=== PATIENT | male | born 1955 | race Caucasian/White ===

== ENCOUNTER 2018-11-23 19:40 | Inpatient (IN) | payer OTHER ==
[~2018-11-23] VITALS: Ht 170.2 cm; Wt 97.1 kg
--- NOTE | 2018-11-23 20:00 | NUR ---
ED Nurse Note: Patient walked in to Er with his daughter, c/o abdominal pain 05/06. 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 AAO x4, VSS at this time, skin is dry, warm to touch.
--- NOTE | 2018-11-23 20:24 | Emergency Room Report ---
History of Present Illness General Chief Complaint: Abdominal Pain Source: Patient Present Illness HPI Patient presents with complaints of diffuse abdominal pain Patient's family is here provides most of the history reports the patient has recently been diagnosed with myofibroblastoma This was at [facility] patient has been seen at the [facility] clinic as well Family is worried the patient's blood glucose has been also elevated Patient is not eating or drinking Has appeared more dehydrated Patient also continues to complain of diffuse abdominal pain They report patient has had a recent PET scan along with other CT imaging Allergies: Coded Allergies: No Known Allergies (Unverified , 11/23/18) Patient History Past Medical History: see triage record Pertinent Family History: none Reviewed Nursing Documentation: PMH: Agreed; PSxH: Agreed Nursing Documentation-PMH Past Medical History: No History, Except For Hx Diabetes: Yes Review of Systems All Other Systems: negative except mentioned in HPI Physical Exam Vital Signs Date Time Temp Pulse Resp B/P (MAP) Pulse Ox O2 Delivery O2 Flow Rate FiO2 11/23/18 19:45 98.2 75 12 152/87 94 Room Air Sp02 EP Interpretation: reviewed, normal General Appearance: well appearing, no apparent distress Head: normocephalic, atraumatic Eyes: bilateral eye PERRL, bilateral eye EOMI ENT: hearing grossly normal, TMs + canals normal, uvula midline, dry mucus membranes Neck: full range of motion, supple, no meningismus, no bony tend Respiratory: lungs clear, normal breath sounds, no rhonchi, no respiratory distress, no retraction, no accessory muscle use Cardiovascular #1: normal peripheral pulses, regular rate, rhythm, no edema, no gallop, no JVD, no murmur Gastrointestinal: normal bowel sounds, non tender, soft, no mass, no organomegaly, non-distended, no guarding, no hernia, no pulsatile mass, no rebound Genitourinary: no CVA tenderness Musculoskeletal: normal inspection Neurologic: oriented x3, responsive, hand turner III-XII nml as tested, motor strength/ tone normal, sensory intact Psychiatric: mood/affect normal Skin: normal color, no rash, warm/dry, palpation normal Lymphatic: normal inspection, no adenopathy Medical Decision Making Diagnostic Impression: Primary Impression: Renal failure Additional Impressions: Hyperkalemia myofibroblastoma urinary stent ER Course Given the patient's history exam and presentation Multiple differentials are considered Patient has had recent PET scan, recent hospitalization The patient's family member also no reports of patient has stents in bilateral kidneys [place] Blood work at this time is significantly abnormal including elevated potassium levels glucose and kidney functions are significantly elevated Family showed me a blood test from 5 days ago with BUN/creatinine of 38 and 1.6 respectively Today's numbers are significantly more abnormal therefore more emergency CT imaging is required further evaluate the stents Patient is making urine therefore further hydration was also initiated patient requiring inpatient care for further evaluation Labs Test 11/23/18 20:25 White Blood Count 7.6 K/UL (4.8-10.8) Red Blood Count 3.51 M/UL (4.70-6.10) Hemoglobin 9.5 G/DL (14.2-18.0) Hematocrit 29.3 % (42.0-52.0) Mean Corpuscular Volume 84 FL (80-99) Mean Corpuscular Hemoglobin 27.2 PG (27.0-31.0) Mean Corpuscular Hemoglobin Concent 32.5 G/DL (32.0-36.0) Red Cell Distribution Width 12.3 % (11.6-14.8) Platelet Count 192 K/UL (150-450) Mean Platelet Volume 5.9 FL (6.5-10.1) Neutrophils (%) (Auto) 71.1 % (45.0-75.0) Lymphocytes (%) (Auto) 14.4 % (20.0-45.0) Monocytes (%) (Auto) 8.2 % (1.0-10.0) Eosinophils (%) (Auto) 5.6 % (0.0-3.0) Basophils (%) (Auto) 0.7 % (0.0-2.0) Sodium Level 129 MMOL/L (136-145) Potassium Level 5.6 MMOL/L (3.5-5.1) Chloride Level 99 MMOL/L (98-107) Carbon Dioxide Level 21 MMOL/L (21-32) Anion Gap 9 mmol/L (5-15) Blood Urea Nitrogen 76 mg/dL (7-18) Creatinine 5.3 MG/DL (0.55-1.30) Estimat Glomerular Filtration Rate 10.9 mL/min (>60) Glucose Level 434 MG/DL (74-106) Calcium Level 8.9 MG/DL (8.5-10.1) Total Bilirubin 0.4 MG/DL (0.2-1.0) Aspartate Amino Transf (AST/SGOT) 19 U/L (15-37) Alanine Aminotransferase (ALT/SGPT) 41 U/L (12-78) Alkaline Phosphatase 115 U/L (46-116) Total Protein 7.6 G/DL (6.4-8.2) Albumin 2.7 G/DL (3.4-5.0) Globulin 4.9 g/dL Albumin/Globulin Ratio 0.6 (1.0-2.7) Lipase 164 U/L (73-393) Rhythm Strip Diag. Results EP Interpretation: yes Rate: 88 Rhythm: NSR, no PVC's, no ectopy CT/MRI/US Diagnostic Results CT/MRI/US Diagnostic Results : Impression CT abdomen pelvisIMPRESSION: Mantle of retroperitoneal soft tissue in the pericaval periaortic region extending into bilateral iliac regions. Findings suspicious for retroperitoneal fibrosis. Differential includes adenopathy. Moderate bilateral hydroureteronephrosis. Double-J ureteral stents appear in good position. Moderate thickening of the urinary bladder wall may be due to cystitis. Correlate clinically. Anasarca. Basal atelectasis. Last Vital Signs Date Time Temp Pulse Resp B/P (MAP) Pulse Ox O2 Delivery O2 Flow Rate FiO2 11/23/18 19:45 98.2 75 12 152/87 94 Room Air Status: improved Disposition: ADMITTED INPATIENT Condition: Serious Rodger Del Angel DO Nov 23, 2018 20:23
[2018-11-23 20:35] LABS: BASOPHILS % (AUTO) 0.7 % (0.0-2.0); EOSINOPHILS % (AUTO) 5.6 % (0.0-3.0); HEMATOCRIT 29.3 % (42.0-52.0); HEMOGLOBIN 9.5 G/DL (14.2-18.0); LYMPHOCYTES % (AUTO) 14.4 % (20.0-45.0); MEAN CORPUSCULAR VOLUME 84 FL (80-99); MONOCYTES % (AUTO) 8.2 % (1.0-10.0); NEUTROPHILS % (AUTO) 71.1 % (45.0-75.0); PLATELET COUNT 192 K/UL (150-450); RED BLOOD COUNT 3.51 M/UL (4.70-6.10); RED CELL DISTRIBUTION WIDTH 12.3 % (11.6-14.8); WHITE BLOOD COUNT 7.6 K/UL (4.8-10.8)
[2018-11-23 20:48] LABS: ANION GAP 9 mmol/L (5-15); BLOOD UREA NITROGEN 76 mg/dL (7-18); CALCIUM 8.9 MG/DL (8.5-10.1); CARBON DIOXIDE 21 MMOL/L (21-32); CHLORIDE 99 MMOL/L (98-107); CREATININE 5.3 MG/DL (0.55-1.30); POTASSIUM 5.6 MMOL/L (3.5-5.1); SODIUM 129 MMOL/L (136-145)
[2018-11-23 20:52] LABS: ALANINE AMINOTRANSFERASE 41 U/L (12-78); ALBUMIN 2.7 G/DL (3.4-5.0); ALBUMIN/GLOBULIN RATIO 0.6 (1.0-2.7); ALKALINE PHOSPHATASE 115 U/L (46-116); ASPARTATE AMINO TRANSFERASE 19 U/L (15-37); BILIRUBIN,TOTAL 0.4 MG/DL (0.2-1.0)
[2018-11-23] MEDS ORDERED: MIRALAX17 G2 ORAL (21:07)
[2018-11-23] MEDS ORDERED: LANTUS SOL100 UNIT/1 SUBQ (21:07)
[2018-11-23] MEDS ORDERED: LIPITOR20 MG ORAL (21:07)
[2018-11-23] MEDS ORDERED: SENNA176 MG/5 M PO (21:07)
[2018-11-23] MEDS ORDERED: GABAPENTIN100 MG ORAL (21:07)
[2018-11-23] MEDS ORDERED: ROXICODONE15 MG ORAL (21:07)
[2018-11-23] MEDS ORDERED: COLACE100 MG ORAL (21:07)
[2018-11-23] MEDS ORDERED: LISPRO (21:07)
[2018-11-23] MEDS ORDERED: ACETAMINOP160 MG/54 ORAL (21:07)
[2018-11-23] MEDS ORDERED: Insulin Human Regular 100units/ml 3ml IV ONE (21:15)
[2018-11-23] MEDS ORDERED: Sodium Polystyrene Sulfonate 15gm Powder ORAL ONE (21:15)
--- NOTE | 2018-11-23 21:15 | NUR ---
ED Nurse Note: Patient is in the bed medicated, states feels better.
[2018-11-23 21:38] LABS: APPEARANCE,URINE CLEAR; BILIRUBIN, URINE NEGATIVE (NEGATIVE); COLOR,URINE PALE YELLOW; GLUCOSE, URINE (UA) 3+ (NEGATIVE); KETONES,URINE NEGATIVE (NEGATIVE); LEUKOCYTE ESTERASE ,URINE 2+ (NEGATIVE); NITRITE,URINE NEGATIVE (NEGATIVE); PH,URINE 5 (4.5-8.0); PROTEIN,URINE NEGATIVE (NEGATIVE); UROBILINOGEN,URINE NORMAL MG/DL (0.0-1.0)
[2018-11-23 22:06] VITALS: BP 152/87
[2018-11-23] MEDS ORDERED: Morphine Sulfate 4mg/ml Inj (IV USE ONLY) IVP ONE (22:15)
[2018-11-23] MEDS ORDERED: Mylanta II UD 30ml ORAL PRN (22:30)
[2018-11-23] MEDS ORDERED: Miralax 17gm pkt ORAL PRN (22:30)
[2018-11-23] MEDS ORDERED: Ketorolac 30mg Inj IV PRN (22:30)
[2018-11-23] MEDS ORDERED: oxyCODONE 15mg IR tab ORAL PRN (22:30)
[2018-11-23] MEDS ORDERED: Nitroglycerin Subl 0.4mg tab SL PRN (22:30)
[2018-11-23] MEDS ORDERED: oxyCODONE 5mg IR tab ORAL PRN (22:45)
--- NOTE | 2018-11-23 23:12 | NUR ---
ED Nurse Note: Patient was admited to [facility] due to abnormal labs, uncontrolled hyperglycemia, dehydration. AAO x4, VSS at this time. All belongings were given to the patient. Patient was transfered by ACLS protocol.
--- NOTE | 2018-11-23 23:40 | NUR ---
NURSE NOTES: Patient arrived, aaox4. Citizen [place] speaking, daughter at bedside. Pain lower abdomen 05/06. Morphine IVP given, IV site patent. Oriented to room. Ambulatory with steady gait. Plan of care discussed. Bed low, call light within reach. Bed low, call light within reach. Addendum: 11/24/18 at 0156 by ELIAZAR BENEDICT RN Blood sugar upon arrival 380. Patient refused sliding scale coverage. Patient also was requesting order for long acting insulin. Dr. Caballero was called. Awaiting call back.
[2018-11-23] MEDS: Morphine Sulfate 4mg/ml Inj (IV USE ONLY) IVP PRN (23:42)
[2018-11-23 23:58] LABS: CREATINE KINASE 19 U/L (26-308)
[2018-11-24] MEDS: NovoLOG Insulin Flexpen SUBQ SCH ×6 (00:40→20:40)
[2018-11-24 04:00] VITALS: BP 145/78
[2018-11-24] MEDS: Morphine Sulfate 4mg/ml Inj (IV USE ONLY) IVP PRN (05:22)
[2018-11-24] MEDS ORDERED: NovoLOG Insulin Flexpen SUBQ SCH ×2 (06:30→11:30)
--- NOTE | 2018-11-24 06:39 | NUR ---
NURSE NOTES: Dr. Caballero made aware patient's critical value blood sugar of 482. Sliding scale given. Endorsed to SADA Ybarra.
[2018-11-24 08:00] VITALS: BP 131/73
--- NOTE | 2018-11-24 08:05 | NUR ---
HAND-OFF: Report given to SADA Ybarra. Patient stable.
[2018-11-24 08:08] LABS: HEMATOCRIT 33.6 % (42.0-52.0); HEMOGLOBIN 10.6 G/DL (14.2-18.0); MEAN CORPUSCULAR VOLUME 86 FL (80-99); PLATELET COUNT 207 K/UL (150-450); RED BLOOD COUNT 3.89 M/UL (4.70-6.10); RED CELL DISTRIBUTION WIDTH 13.2 % (11.6-14.8); WHITE BLOOD COUNT 9.8 K/UL (4.8-10.8)
[2018-11-24 08:10] LABS: INR 1.1 (0.9-1.1)
--- NOTE | 2018-11-24 08:20 | NUR ---
NURSE NOTES: during shift change patient alert awake with out no distress abdominal US in progress, will continue to monitor.
[2018-11-24 08:44] LABS: % IRON SATURATION 19 % (15-50); ALANINE AMINOTRANSFERASE 40 U/L (12-78); ALBUMIN 2.6 G/DL (3.4-5.0); ALBUMIN/GLOBULIN RATIO 0.5 (1.0-2.7); ALKALINE PHOSPHATASE 115 U/L (46-116); AMYLASE 27 U/L (25-115); ANION GAP 18 mmol/L (5-15); ASPARTATE AMINO TRANSFERASE 16 U/L (15-37); BILIRUBIN,TOTAL 0.5 MG/DL (0.2-1.0); BLOOD UREA NITROGEN 77 mg/dL (7-18); CALCIUM 8.7 MG/DL (8.5-10.1); CARBON DIOXIDE 14 MMOL/L (21-32); CHLORIDE 98 MMOL/L (98-107); CREATININE 5.4 MG/DL (0.55-1.30); IRON 28 ug/dL (50-175); SODIUM 129 MMOL/L (136-145); TOTAL IRON BINDING CAPACITY 148 ug/dL (250-450)
[2018-11-24 08:46] LABS: LACTATE DEHYDROGENASE 141 U/L (81-234)
--- NOTE | 2018-11-24 08:50 | NUR ---
NURSE NOTES: Received a call from sarah Selby for critical lab value Potassium 7.0. Dr Tracy notified waiting a call back, patient with out no condition change currently, VS WNL. will continue to monitor.
--- NOTE | 2018-11-24 08:52 | Diagnostic Imaging Report ---
Indication: Abdominal pain Technique: Continuous helical transaxial imaging of the abdomen and pelvis was obtained from the lung bases to the pubic symphysis. No intravenous contrast was administered. Coronal 2-D reformats were also obtained. Automatic Exposure Control was utilized. Total Dose length Product (DLP): 743.[address] Dose Index Volume (CTDIvol): 13.01 mGy Comparison: none Findings: The patient has bilateral double-J ureteral stents which appear to be in good position. Despite this the ureters are moderately dilated. The bladder is nondistended. There is a relative absence of intra-abdominal fat. There is thickening of the wall the urinary bladder. There is no evidence of significant free fluid or abscess. The retroperitoneum is appears abnormal. There is a confluent soft tissue density surrounding the aorta and IVC within the retroperitoneum extending into both iliac regions. This mantle of tissue could be due to retroperitoneal fibrosis. Other possibilities such as adenopathy is not excluded.. There is generalized subcutaneous edema within the abdominal wall. There is a right L5-S1 pseudarthrosis. There is minimal basilar atelectasis. IMPRESSION: Mantle of retroperitoneal soft tissue in the pericaval periaortic region extending into bilateral iliac regions. Findings suspicious for retroperitoneal fibrosis. Differential includes adenopathy. Moderate bilateral hydroureteronephrosis. Double-J ureteral stents appear in good position. Moderate thickening of the urinary bladder wall may be due to cystitis. Correlate clinically. Anasarca. Basal atelectasis. The CT scanner at [facility] is accredited by the [employer] and the scans are performed using dose optimization techniques as appropriate to a performed exam including Automatic Exposure control.
[2018-11-24] MEDS ORDERED: Heparin 5000 units/ml inj SUBQ SCH (09:00)
--- NOTE | 2018-11-24 09:20 | NUR ---
NURSE NOTES: Dr. Garcia returned call regarding critical lab value order received, for 10unit regular insulin IVP, Pharmacist Sonu notified of new order. Dr. Garcia came to see the patient bed available will transfer patient.
[2018-11-24] MEDS ORDERED: Insulin Human Regular 100units/ml 3ml IV ONE (09:30)
[2018-11-24 09:50] VITALS: BP 155/74
--- NOTE | 2018-11-24 09:53 | NUR ---
HAND-OFF: Report given to Patient transferred to [facility] stable condition, stat order 10unit regular insulin IV given. belonging checked with receiving RN, daughter and patient and signed.
--- NOTE | 2018-11-24 09:53 | Diagnostic Imaging Report ---
Indication:Abdominal pain Technique: Grayscale and duplex Doppler imaging of the abdomen performed. Comparison: None Findings: Liver is unremarkable. There is trace ascites. Gallbladder shows no evidence of stones and sonographic Willett's is negative per technologist. CBD is normal in caliber measuring 6 mm. The portal vein is patent by Doppler examination. Visualized pancreas is unremarkable. The spleen is mildly enlarged measuring between 13 and 14 cm. Bilateral hydroureteronephrosis demonstrated moderate in degree despite bilateral ureteral stents, partially visualized on this study. CT confirms the stents and shows good positioning of the stents. The abdominal aorta shows normal caliber. There is a mantle of tissue surrounding the aorta and part of the IVC in the retroperitoneum. The aorta is not displaced but in its normal position adjacent to the shadowing bony lumbar spine, suggesting retroperitoneal fibrosis rather than tumor. CT shows similar findings. The nature of the retroperitoneal soft tissue surrounding the aorta is not known but suspected to represent retroperitoneal fibrosis. The patient has a recent diagnosis of myofibroblastoma, the details of which are unknown but workup was performed at [facility]. IMPRESSION: Moderate bilateral hydroureteronephrosis. Ureteral stents noted. Please refer to the CT report. 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 Differential diagnosis includes mass such as metastatic neoplasm, lymphoma, other proliferative tumor. Note: Myofibroblastoma diagnosis has been made at [facility], details of which are unknown to us. This is a rare tumor and has been reported in the literature involving the retroperitoneum. Please refer to the [facility] workup results.
--- NOTE | 2018-11-24 09:54 | NUR ---
NURSE NOTES: Received patient from SADA Ybarra. Patient VS stable at this time. Patient BP 155/74, HR 73, Temp 97.7, and SpO2 98%. Patient ambulates to the restroom. Patient transferred to [facility] for potassium of 7.0. Patient has had 10 untis insulin this morning. Will follow up with doctor for any new orders. Patient has pain of the abdomen at this time. Patient admitted for dehydration and hyperglycemia. Patient blood sugar was 482 this morning. is aware. Patient has not had a bowel movement since admission. Patient alert and oriented and ken[place] speaking. Patient on RA with no symptoms of shortness of breath. Patient NPO for renal and abdominal ultrasound that was completed earlier this morning. Patient has left AC 20G PIV that is patent, asymptomatic, and running NS at 50mL/hr at this time. Patient bed in low position with bed alarm on and call light in reach at this time. Addendum: 11/24/18 at 1557 by Kaylin Azar RN Daughter at the bedside.
--- NOTE | 2018-11-24 09:58 | NUR ---
*-* NO INSURANCE INFORMATION IN THE BAR UNABLE TO SEND CLINICALS OR REVIEWS *-*
[2018-11-24] MEDS ORDERED: Morphine Sulfate 2mg/ml Inj(IV/IM USE ONLY) IVP PRN (10:30)
[2018-11-24] MEDS ORDERED: Nitroglycerin Subl 0.4mg tab SL PRN (10:30)
--- NOTE | 2018-11-24 10:30 | NUR ---
NURSE NOTES: Patient has 115mL post void residual at this time. Dr Garcia is aware.
[2018-11-24] MEDS ORDERED: oxyCODONE 5mg IR tab ORAL PRN (10:45)
[2018-11-24] MEDS ORDERED: Metoclopramide 10mg/2ml Inj IVP SCH ×2 (11:00→18:00)
[2018-11-24] MEDS ORDERED: Sodium Polystyrene Sulfonate 15gm Powder ORAL SCH ×2 (11:00→18:00)
[2018-11-24] MEDS ORDERED: Tamsulosin 0.4mg cap ORAL SCH (11:00)
--- NOTE | 2018-11-24 11:35 | Consultation ---
Consult Note Consult Note asked to eval at the request of Dr Tracy patient seen , examined, c.o.d. clerk daughter in room patient had a recent surgery and stent placement in 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 This was at [facility] patient has been seen at the [facility] as well Family is worried the patient's blood glucose has been also elevated Patient is not eating or drinking Has appeared more dehydrated Patient also continues to complain of diffuse abdominal pain They report patient has had a recent PET scan along with other CT imaging Allergies: Coded Allergies: No Known Allergies (Unverified , 11/23/18) Assessment/Plan Renal failure, Hyperkalemia long h/o DM retroperitoneal mass, bilateral moderate hydro, nature of mass myofibroma Anemia Uro eval kayexelate and reglan and renal diet monitor K Flomax may require HD JES and CT results noted Gavino Garcia MD Nov 24, 2018 11:35
--- NOTE | 2018-11-24 11:55 | General Progress Note ---
Assessment/Plan Problem List: (1) myofibroblastoma (2) urinary stent (3) Dehydration ICD Codes: E86.0 - Dehydration SNOMED: 98192060 (4) Hyperkalemia ICD Codes: E87.5 - Hyperkalemia SNOMED: 50929816 Assessment/Plan: CT and abd us reviewed fu urology on renal diet fu labs pain control pending chemo as out patient Subjective ROS Limited/Unobtainable: No Allergies: Coded Allergies: No Known Allergies (Unverified , 11/23/18) Objective Last 24 Hour Vital Signs Date Time Temp Pulse Resp B/P (MAP) Pulse Ox O2 Delivery O2 Flow Rate FiO2 11/24/18 11:23 Room Air 11/24/18 08:00 98.5 83 17 131/73 (92) 96 11/24/18 04:00 99.2 83 18 145/78 (100) 97 11/24/18 02:05 Room Air 11/23/18 23:08 98.4 62 18 142/77 Room Air 11/23/18 22:42 98.2 11/23/18 22:06 75 12 Room Air 11/23/18 22:06 98.2 12 152/87 94 Room Air 11/23/18 19:45 98.2 75 12 152/87 94 Room Air Intake and Output 11/23/18 11/24/18 18:59 06:59 Intake Total 2250 ml Output Total 200 ml Balance 2050 ml Intake IV Total 2250 ml Output Emesis 200 ml # Voids 3 Laboratory Tests 11/23/18 20:25: White Blood Count 7.6, Red Blood Count 3.51L, Hemoglobin 9.5L, Hematocrit 29.3L , Mean Corpuscular Volume 84, Mean Corpuscular Hemoglobin 27.2, Mean Corpuscular Hemoglobin Concent 32.5, Red Cell Distribution Width 12.3, Platelet Count 192, Mean Platelet Volume 5.9L, Neutrophils (%) (Auto) 71.1, Lymphocytes ( %) (Auto) 14.4L, Monocytes (%) (Auto) 8.2, Eosinophils (%) (Auto) 5.6H, Basophils (%) (Auto) 0.7, Sodium Level 129L, Potassium Level 5.6H, Chloride Level 99, Carbon Dioxide Level 21, Anion Gap 9, Blood Urea Nitrogen 76H, Creatinine 5.3H, Estimat Glomerular Filtration Rate 10.9, Glucose Level 434H, Uric Acid 9.7H, Calcium Level 8.9, Total Bilirubin 0.4, Aspartate Amino Transf ( AST/SGOT) 19, Alanine Aminotransferase (ALT/SGPT) 41, Alkaline Phosphatase 115, Total Creatine Kinase 19L, Total Protein 7.6, Albumin 2.7L, Globulin 4.9, Albumin/Globulin Ratio 0.6L, Lipase 164 11/23/18 21:15: Urine Color Pale yellow, Urine Appearance Clear, Urine pH 5, Urine Specific [place] 1.010, Urine Protein Negative, Urine Glucose (UA) 3+H, Urine Ketones Negative, Urine Blood 3+H, Urine Nitrite Negative, Urine Bilirubin Negative, Urine Urobilinogen Normal, Urine Leukocyte Esterase 2+H, Urine RBC 2-4H, Urine WBC 5-10H, Urine Squamous Epithelial Cells None, Urine Bacteria Few, Urine Eosinophils Occasional, Urine Random Creatinine [Pending], Urine Random Microalbumin [Pending], Urine Random Sodium 38, Urine Creatinine 63.7, Urine Microalbumin/Creatinine Ratio [Pending], Urine Potassium Timed 18 11/24/18 06:44: White Blood Count 9.8, Red Blood Count 3.89L, Hemoglobin 10.6L, Hematocrit 33.6L , Mean Corpuscular Volume 86, Mean Corpuscular Hemoglobin 27.2, Mean Corpuscular Hemoglobin Concent 31.5L, Red Cell Distribution Width 13.2, Platelet Count 207, Mean Platelet Volume 7.1, Neutrophils (%) (Auto) , Lymphocytes (%) (Auto) , Monocytes (%) (Auto) , Eosinophils (%) (Auto) , Basophils (%) (Auto) , Sodium Level 129L, Potassium Level 7.0*H, Chloride Level 98, Carbon Dioxide Level 14L, Anion Gap 18H, Blood Urea Nitrogen 77H, Creatinine 5.4H, Estimat Glomerular Filtration Rate 10.7, Glucose Level 497H, Calcium Level 8.7, Total Bilirubin 0.5, Aspartate Amino Transf (AST/SGOT) 16, Alanine Aminotransferase (ALT/SGPT) 40, Alkaline Phosphatase 115, Total Protein 7.5, Albumin 2.6L, Globulin 4.9, Albumin/Globulin Ratio 0.5L, Lipase 173, Differential Total Cells Counted 100, Neutrophils % (Manual) 91H, Lymphocytes % (Manual) 5L, Monocytes % (Manual) 3, Eosinophils % (Manual) 1, Basophils % ( Manual) 0, Band Neutrophils 0, Platelet Estimate Adequate, Platelet Morphology Normal, Hypochromasia 1+, Anisocytosis 1+, Erythrocyte Sedimentation Rate 72H, Reticulocyte Count 1.3, Prothrombin Time 11.3, Prothromb Time International Ratio 1.1, Activated Partial Thromboplast Time 34H, Hemoglobin A1c 7.7H, Iron Level 28L, Total Iron Binding Capacity 148L, Percent Iron Saturation 19, Unsaturated Iron Binding 120, Ferritin [Pending], Lactate Dehydrogenase 141, Triglycerides Level [Pending], Cholesterol Level [Pending], LDL Cholesterol [ Pending], HDL Cholesterol [Pending], Cholesterol/HDL Ratio [Pending], Amylase Level 27, Carcinoembryonic Antigen [Pending], Vitamin B12 Level 831, Folate 8.8 , Thyroid Stimulating Hormone (TSH) 1.518 Height (Feet): 5 Height (Inches): 9.00 Weight (Pounds): 174 General Appearance: lethargic EENT: normal ENT inspection Neck: supple Cardiovascular: normal rate Respiratory/Chest: decreased breath sounds Abdomen: normal bowel sounds, non tender, soft Extremities: non-tender Fish Suero MD Nov 24, 2018 11:54
[2018-11-24 12:00] VITALS: BP_SYST 131; BP_SYST 147; BP_DIAS 73
[2018-11-24] MEDS ORDERED: Metoclopramide 10mg/2ml Inj IVP PRN ×2 (12:00→18:00)
[2018-11-24] MEDS: Sodium Citrate 30ml ORAL SCH ×3 (12:09→23:07)
[2018-11-24] MEDS: Pantoprazole Inj IVP SCH (12:09)
[2018-11-24 12:17] LABS: CHOLESTEROL 119 MG/DL (< 200); FERRITIN 446 NG/ML (8-388); HDL CHOLESTEROL 30 MG/DL (40-60); TRIGLYCERIDES 172 MG/DL (30-150)
--- NOTE | 2018-11-24 13:00 | NUR ---
NURSE NOTES: Sands inserted using aseptic technique. Patient tolerated procedure with minimal discomfort.
[2018-11-24] MEDS: Sodium Bicarbonate 50 ML in 1/2 NS 1000ml 1,000 ML IV SCH ×2 (13:21→22:12)
[2018-11-24] MEDS: Docusate 100mg cap ORAL SCH ×2 (13:25→18:45)
[2018-11-24] MEDS: HYDROmorphone 1mg/ml Carpuject IVP PRN ×2 (13:50→18:44)
--- NOTE | 2018-11-24 15:55 | Cardiology Report ---
APPROVED REPORT EKG Measurement Heart [id number] Normal sinus rhythm Normal ECG
[2018-11-24 16:00] VITALS: BP 138/80
--- NOTE | 2018-11-24 16:13 | NUR ---
CASE MANAGEMENT:REVIEW 63 YR OLD MALE FROM HOME TO ER CC: ABDOMINAL PAIN X1 WEEK PMH: RECENT DIAGNOSIS OF MYOFIBROBLASTOMA SI: DEHYDRATION. RENAL FAILURE. HYPERKALEMIA 98.2 75 12 152/87 94% ON RA H/H-9.5/29.3 NA-129 K+5.6 THEN 7.0 BUN+76 CR+5.3 IS: 1L NS BOLUS X1 KAYEXALATE PO IV INSULIN IV MORPHINE CT ABDOMEN : TO MED/SURG 3 EAST interqual criteria met
[2018-11-24 16:27] LABS: ANION GAP 10 mmol/L (5-15); BASOPHILS % (AUTO) 0.9 % (0.0-2.0); BLOOD UREA NITROGEN 80 mg/dL (7-18); CALCIUM 8.7 MG/DL (8.5-10.1); CARBON DIOXIDE 20 MMOL/L (21-32); CHLORIDE 101 MMOL/L (98-107); CREATININE 5.8 MG/DL (0.55-1.30); EOSINOPHILS % (AUTO) 1.1 % (0.0-3.0); HEMATOCRIT 29.4 % (42.0-52.0); HEMOGLOBIN 9.7 G/DL (14.2-18.0); LYMPHOCYTES % (AUTO) 9.6 % (20.0-45.0); MEAN CORPUSCULAR VOLUME 82 FL (80-99); MONOCYTES % (AUTO) 8.1 % (1.0-10.0); NEUTROPHILS % (AUTO) 80.3 % (45.0-75.0); PLATELET COUNT 231 K/UL (150-450); POTASSIUM 5.7 MMOL/L (3.5-5.1); RED BLOOD COUNT 3.58 M/UL (4.70-6.10); RED CELL DISTRIBUTION WIDTH 12.1 % (11.6-14.8); SODIUM 131 MMOL/L (136-145); WHITE BLOOD COUNT 9.9 K/UL (4.8-10.8)
[2018-11-24 16:40] LABS: ALANINE AMINOTRANSFERASE 33 U/L (12-78); ALBUMIN 2.4 G/DL (3.4-5.0); ALBUMIN/GLOBULIN RATIO 0.5 (1.0-2.7); ALKALINE PHOSPHATASE 102 U/L (46-116); ASPARTATE AMINO TRANSFERASE 10 U/L (15-37); BILIRUBIN,TOTAL 0.3 MG/DL (0.2-1.0); PHOSPHORUS 6.2 MG/DL (2.5-4.9)
--- NOTE | 2018-11-24 16:58 | NUR ---
*-* INSURANCE *-* CLINICALS AND REVIEWS HAVE BEEN FAXED TO: NOEMY BETTS:ARSLAN [phone]
--- NOTE | 2018-11-24 17:30 | Consultation ---
DATE OF CONSULTATION: 11/24/2018 UROLOGY CONSULTATION CHIEF COMPLAINT/HISTORY OF PRESENT ILLNESS: I was asked by Dr. Garcia to evaluate this unfortunate 63-year-old Cym[place] gentleman regarding a history of renal failure in the setting of retroperitoneal mass/fibrosis. Briefly, the patient has a history of a retroperitoneal mass. This was diagnosed in [place]. At that time, retroperitoneal biopsy revealed evidence of myofibroblastoma. The mass was apparently causing obstruction of his ureters and as such, the bilateral double-J stents were placed on 11/06/2018. As such, the stents are only 2 weeks old. The patient presented to the hospital with acute renal insufficiency and hyperkalemia. He was noted to have moderate hydronephrosis and as such, I was asked to evaluate the patient. PAST MEDICAL HISTORY: 1. Myofibroblastoma with retroperitoneal compression/fibrosis. 2. Diabetes mellitus. 3. Anemia. PAST SURGICAL HISTORY: 1. Retroperitoneal biopsy. 2. Cystoscopy with bilateral double-J stent placements approximately 2 weeks ago. MEDICATIONS: Please see the chart for current medications and administration details. ALLERGIES: No known drug allergies. SOCIAL HISTORY: Unremarkable for tobacco, alcohol, or drug use. FAMILY HISTORY: Noncontributory. REVIEW OF SYSTEMS: A 14-system review of systems was essentially unremarkable outside what was described above. PHYSICAL EXAMINATION: GENERAL: The patient is an older Cymro gentleman, awake and alert, resting comfortably, and in no obvious distress. HEENT: NC/AT. NECK: Supple. Oropharynx clear. CHEST: Within normal limits. ABDOMEN: Soft, flat, nontender, and nondistended. EXTREMITIES: Warm and well perfused. No cyanosis, clubbing, or edema. BACK: No CVA tenderness to percussion. NEUROLOGIC: Grossly nonfocal. LABORATORY DATA: White blood cell count 9.8, hematocrit 33.6, and platelets 207,000. PT 11.1, INR 1.1, and PTT 34. Sodium 129, potassium 7.0, chloride 98, bicarbonate 14, BUN 77, creatinine 5.4, and glucose 497. Uric acid 9.7. Calcium 8.7. LFTs within normal limits. Alkaline phosphatase 115. Urinalysis, specific gravity 1.010 and pH 5.0. Dip test notable for 3+ glucose, 3+ blood, and 2+ leukocyte esterase. Microanalysis with 2 to 4 red and 5 to 10 white blood cells per high-power field and few bacteria seen. DIAGNOSTIC IMAGING: CT scan of the abdomen and pelvis reveals a mantle of retroperitoneal soft tissue in the pericaval and periaortic region extending into the bilateral iliac regions. The findings are suspicious for retroperitoneal fibrosis/mass. Differential includes adenopathy. There is moderate bilateral hydroureteronephrosis. There are bilateral double-J stents in place in good position. There is moderate thickening of the bladder wall. There is anasarca. There is basal atelectasis. ASSESSMENT AND PLAN: In summary, the patient is a 63-year-old gentleman with a history of myofibroblastoma. This was diagnosed in [place] and verified on biopsy for the same. He had apparent ureteral compression from the mass, which overlies other portions of retroperitoneum. So, double-J stents were placed 2 weeks ago for the same. The patient presents with renal failure and hyperkalemia despite the same. Physical exam is unremarkable. Laboratory data is notable for the findings described above. Diagnostic imaging reveals moderate hydroureteronephrosis with stents that appear to be in good position. I discussed these findings today with the patient's family and with Dr. Garcia. The stents were recently placed and appeared to be in good position on imaging. There is a very little reason to believe that they are suddenly occluded especially on both sides in such a short period of time. As such, there are 2 remaining possibilities. The first is that the ureters are compressed despite the stents by the retroperitoneal mass and that the stents are not enough to keep the ureters open leading to obstructive uropathy despite the stents. The option to treat that would be to place nephrostomy tubes in both kidneys and see if the renal function improves by going above the level of the retroperitoneal fibrosis. The second possibility is that there is medical renal disease affecting the function of the kidneys. If the patient had nephrostomy tubes placed and failed to improve, I would leave this as the remaining solution to what is going on. I discussed these findings again with the patient and family and with Dr. Garcia. We will plan for bilateral nephrostomy tubes to see if this improves the patient's renal function. If it does, he can be discharged home with nephrostomy tubes in place until his retroperitoneal mass can be addressed and treated surgically. If he fails to improve with the nephrostomy tubes, then the issue should be medical renal and I will defer to Nephrology for further management of the same. Thank you for allowing me to participate in the care of this unfortunate gentleman. Please do not hesitate to contact me for any questions that you may further have regarding his care. I will see him with you as needed. Sam Dacosta M.D. DR: DANIELLE JOB#: [id number] CC:
--- NOTE | 2018-11-24 17:44 | NUR ---
NURSE NOTES: Called to notify Dr Garcia regarding K lab result of 5.7. Left message. Awaiting call back.
--- NOTE | 2018-11-24 17:45 | Consultation ---
Consult Note Consult Note ID note [id number] Gregory Levy MD Nov 24, 2018 17:45
[2018-11-24] MEDS ORDERED: Lactulose 20gm/30ml UDC ORAL SCH (18:00)
[2018-11-24] MEDS: cefTRIAXone 1 GM in D5W 55 ML IVPB SCH (18:41)
--- NOTE | 2018-11-24 19:14 | NUR ---
HAND-OFF: Report given to SADA Victoria. Patient VS stable at this time. Patient just received pain medication. Endorsed to follow up.
--- NOTE | 2018-11-24 19:15 | NUR ---
NURSE NOTES: Pt report received from Kaylin TOMLIN. Pt appears to be resting well with no distress noted. Pt is alert and Oriented times 4. Pt has a nurse monitoring on, active and working, pt has no signs or symptoms of acute cardiac distress noted. pt is on Room air and is saturating at 99%, no acute respiratory distress noted at this time. Pt has a [place] inlace, intact, and is draining to gravity. All safety precautions are active, such as bed is set at lowest position, Bed alarm is active, call light is within easy reach, side rails are up times 3. Will continue plan of care.
[2018-11-24 20:00] VITALS: BP 153/86
[2018-11-24] MEDS: Tamsulosin 0.4mg cap ORAL SCH (20:37)
[2018-11-24] MEDS: Levemir Flexpen SUBQ SCH (20:41)
[2018-11-24] MEDS: Heparin 5000 units/ml inj SUBQ SCH (20:42)
[2018-11-24] MEDS ORDERED: Miralax 17gm pkt ORAL PRN (21:00)
[2018-11-24] MEDS ORDERED: Levemir Flexpen SUBQ SCH (21:00)
[2018-11-25] VITALS (21 sets, daily range): BP systolic 129–165; BP diastolic 78–96
--- NOTE | 2018-11-25 00:15 | History and Physical Report ---
DATE OF ADMISSION: 11/23/2018 CONSULTANTS: 1. Roberto Caballero M.D. 2. Gavino Garcia M.D. 3. Sam Dacosta M.D. 4. Odell Fernandez M.D. CHIEF COMPLAINT: Abdominal pain and history of renal stent. BRIEF HISTORY: This is a 63-year-old male, who lives at home, with history of renal insufficiency, comes in with abdominal pain, history of recent renal stent, diagnosed with obstructive uropathy and hypokalemia, admitted to [facility] for further care. Currently, slightly anxious in bed, no complaint. REVIEW OF SYSTEMS: No chest pain. No shortness of breath. Slight nausea. No vomiting or diarrhea. PAST MEDICAL HISTORY: Diabetes and abdominal tumor. PAST SURGERY HISTORY: Laparoscopy and recent renal stent. MEDICATIONS: Include gabapentin, insulin, polyethylene glycol, , Reglan, hydromorphone, and oxycodone. ALLERGIES: Denies. SOCIAL HISTORY: No smoking. No alcohol. No intravenous drug abuse. FAMILY HISTORY: Noncontributory. PHYSICAL EXAMINATION: GENERAL: Calm in bed, sleepy, oriented x2, and in no acute distress. VITAL SIGNS: Show temperature is 98 degrees, pulse 83, respirations 17, and blood pressure 131/73. CARDIOVASCULAR: No murmurs. LUNGS: Poor air exchange. ABDOMEN: Bowel sounds distant. Soft. No guarding. No rigidity. No rebound. EXTREMITIES: Show no cyanosis or edema. NEUROLOGIC: The patient moves all extremities, slightly weak. LABORATORY AND DIAGNOSTIC DATA: Labs, at this time, show H and H is 10.6 and 33. Sodium 129 and potassium . BUN and creatinine is 37 and 5.4. Glucose 197. Albumin 2.6. INR is 1.1. PTT 34. Urinalysis, 2+ leukocyte esterase. ASSESSMENT: 1. Renal failure with history of renal stenosis. 2. . 3. Anemia. 4. Obstructive uropathy. 5. Urinary tract infection. 6. Diabetes. 7. Abdominal pain. 8. History of abdominal tumor. PLAN: 1. PT and dietary evaluation. 2. Antibiotics per Infectious Disease. 3. Pain control. 4. IV fluids. 5. Nephrology followup. 6. CBC and BMP in the morning. Gopal Tracy D.O. DR: ALLA JOB#: [id number] CC:
--- NOTE | 2018-11-25 02:30 | Consultation ---
DATE OF CONSULTATION: 11/24/2018 INFECTIOUS DISEASE CONSULTATION REASON FOR CONSULTATION: Evaluation of the patient for possible intra-abdominal sepsis. HISTORY OF PRESENT ILLNESS: The patient is a 63-year-old male, who came to the hospital with diffuse abdominal pain and decreased oral feeding. The patient is recently diagnosed with myofibroblastoma and has been followed with [facility]. The patient also underwent ureteral stent placement due to worsening of renal function. Infectious Diseases consultation has been requested for further evaluation of the patient and possible need for intraabdominal infectious process. CT of abdomen showed the retroperitoneal soft tissue in the periaortic area extending to the bilateral iliac regions, moderate bilateral hydronephrosis, status post double-J stent placement. REVIEW OF SYSTEMS: A 10-point review of systems was done and except what was mentioned above has been negative. The patient denies having dysuria, cough, runny nose, or sore throat. PAST MEDICAL HISTORY: Significant for, 1. Myofibroblastoma. 2. History of renal insufficiency. 3. Status post ureteral stent placement. 4. Diabetes. MEDICATIONS: Off of antibiotics. ALLERGIES: No known drug allergies. SOCIAL HISTORY: No history of alcohol or drug abuse. FAMILY HISTORY: Not contributing. PHYSICAL EXAMINATION: VITAL SIGNS: Temperature 98 degrees, blood pressure 114/72, pulse 86, and respiratory rate 18. HEENT: No pale conjunctivae. No icterus. NECK: No lymphadenopathy. CHEST: Coarse breathing sounds. HEART: S1 and S2. ABDOMEN: Soft. EXTREMITY: No cyanosis. NEUROLOGIC: Awake and alert. LABORATORY DATA: White blood cells 9.9, hemoglobin 9.7, and platelets 231,000. UA, 5 to 10 white blood cells. BUN 80 and creatinine 5.3. ALT, AST, and alkaline phosphatase unremarkable. ASSESSMENT: The patient is a 63-year-old male with, 1. Abdominal pain (due to a cancerous process). 2. Afebrile. 3. Normal white blood cells. 4. No evidence of intraabdominal infectious process or urinary tract infection. PLAN: 1. We will monitor the patient off of antibiotics. 2. We will follow GI and Nephrology recommendations. 3. Monitor CBC. 4. Monitor BMP. 5. Based on the patient's clinical course and labs, we will do further recommendations. Thank you, Dr. Gopal Tracy, for allowing me to participate in the care of this patient. I will follow the patient with you during this hospitalization. Gregory Levy M.D. DR: SYLVIA JOB#: [id number] CC:
[2018-11-25 05:11] LABS: BASOPHILS % (AUTO) 0.7 % (0.0-2.0); EOSINOPHILS % (AUTO) 2.9 % (0.0-3.0); HEMATOCRIT 27.6 % (42.0-52.0); HEMOGLOBIN 9.2 G/DL (14.2-18.0); LYMPHOCYTES % (AUTO) 11.5 % (20.0-45.0); MEAN CORPUSCULAR VOLUME 83 FL (80-99); MONOCYTES % (AUTO) 5.9 % (1.0-10.0); PLATELET COUNT 209 K/UL (150-450); RED BLOOD COUNT 3.32 M/UL (4.70-6.10); RED CELL DISTRIBUTION WIDTH 12.3 % (11.6-14.8); WHITE BLOOD COUNT 9.4 K/UL (4.8-10.8)
[2018-11-25] MEDS: Sodium Citrate 30ml ORAL SCH ×3 (05:20→18:26)
[2018-11-25 05:28] LABS: ALANINE AMINOTRANSFERASE 26 U/L (12-78); ALBUMIN 2.2 G/DL (3.4-5.0); ALBUMIN/GLOBULIN RATIO 0.5 (1.0-2.7); ALKALINE PHOSPHATASE 92 U/L (46-116); ANION GAP 12 mmol/L (5-15); ASPARTATE AMINO TRANSFERASE 9 U/L (15-37); BILIRUBIN,TOTAL 0.2 MG/DL (0.2-1.0); BLOOD UREA NITROGEN 85 mg/dL (7-18); CALCIUM 8.7 MG/DL (8.5-10.1); CARBON DIOXIDE 21 MMOL/L (21-32); CHLORIDE 100 MMOL/L (98-107); CREATININE 6.9 MG/DL (0.55-1.30); POTASSIUM 4.6 MMOL/L (3.5-5.1); SODIUM 133 MMOL/L (136-145)
[2018-11-25] MEDS: NovoLOG Insulin Flexpen SUBQ SCH ×4 (05:33→20:25)
[2018-11-25 05:39] LABS: PHOSPHORUS 7.2 MG/DL (2.5-4.9)
--- NOTE | 2018-11-25 07:23 | NUR ---
HAND-OFF: Report given to Peggy TOMLIN.
--- NOTE | 2018-11-25 07:24 | NUR ---
NURSE NOTES: RECEIVED PATIENT FROM Chuck FARIAS RN. PATIENT IS LYING IN BED, ASLEEP. HOOKED TO ARTIST [employer]OD[employer]. ON ROOM AIR. NO SIGNS OF DISTRESS. NPO FOR PROCEDURE. CONSENT NEEDS TO BE SIGNED. NOTED OLEARY CONNECTED TO BAG. SKIN IS INTACT. IV ON L HAND G20, IVF RUNNING 1/2 NS + SODIUM BICARB AT 100ML/HR. BED AT LOWEST POSITION. RENETTA LIGHT WITHIN REACH. SIDE RAILS UP. WILL CONTINUE TO MONITOR.
--- NOTE | 2018-11-25 08:40 | General Progress Note ---
Assessment/Plan Problem List: (1) myofibroblastoma (2) urinary stent (3) Dehydration ICD Codes: E86.0 - Dehydration SNOMED: 82657316 (4) Hyperkalemia ICD Codes: E87.5 - Hyperkalemia SNOMED: 00156404 Assessment/Plan: CT and abd us reviewed fu urology>>>pending nephrostomy tube placement for today NPO today fu labs pain control pending chemo as out patient Subjective ROS Limited/Unobtainable: No Allergies: Coded Allergies: No Known Allergies (Unverified , 11/23/18) Objective Last 24 Hour Vital Signs Date Time Temp Pulse Resp B/P (MAP) Pulse Ox O2 Delivery O2 Flow Rate FiO2 11/25/18 04:00 Room Air 11/25/18 04:00 98.9 87 20 129/78 (95) 96 11/25/18 04:00 87 11/25/18 00:00 Room Air 11/25/18 00:00 98.7 88 20 137/82 (100) 96 11/25/18 00:00 83 11/24/18 20:00 97.9 82 18 153/86 (108) 98 11/24/18 20:00 Room Air 11/24/18 16:00 98.4 78 20 138/80 (99) 97 11/24/18 16:00 Room Air 11/24/18 15:38 74 11/24/18 13:00 Room Air 11/24/18 12:00 Room Air 11/24/18 12:00 98.2 76 22 147/73 (97) 98 11/24/18 11:23 Room Air 11/24/18 09:50 97.7 73 22 155/74 (101) 98 Intake and Output 11/24/18 11/25/18 19:00 07:00 Intake Total 1765 ml 800 ml Output Total 250 ml 1200 ml Balance 1515 ml -400 ml Intake Oral 960 ml IV Total 805 ml 800 ml Output Urine Total 250 ml 1200 ml Stool Total 0 ml # Voids 2 Laboratory Tests 11/24/18 14:30: Stool Occult Blood [Pending] 11/24/18 16:05: White Blood Count 9.9, Red Blood Count 3.58L, Hemoglobin 9.7L, Hematocrit 29.4L , Mean Corpuscular Volume 82, Mean Corpuscular Hemoglobin 27.2, Mean Corpuscular Hemoglobin Concent 33.1, Red Cell Distribution Width 12.1, Platelet Count 231, Mean Platelet Volume 6.3L, Neutrophils (%) (Auto) 80.3H, Lymphocytes (%) (Auto) 9.6L, Monocytes (%) (Auto) 8.1, Eosinophils (%) (Auto) 1.1, Basophils (%) (Auto) 0.9, Sodium Level 131L, Potassium Level 5.7H, Chloride Level 101, Carbon Dioxide Level 20L, Anion Gap 10, Blood Urea Nitrogen 80H, Creatinine 5.8H, Estimat Glomerular Filtration Rate 9.9, Glucose Level 388#H, Lactic Acid Level 0.70, Uric Acid 9.7H, Calcium Level 8.7, Phosphorus Level 6.2H , Magnesium Level 2.1, Total Bilirubin 0.3, Aspartate Amino Transf (AST/SGOT) 10L, Alanine Aminotransferase (ALT/SGPT) 33, Alkaline Phosphatase 102, C- Reactive Protein, Quantitative 23.8H, Pro-B-Type Natriuretic Peptide 2544H, Total Protein 6.9, Albumin 2.4L, Globulin 4.5, Albumin/Globulin Ratio 0.5L 11/25/18 03:25: White Blood Count 9.4, Red Blood Count 3.32L, Hemoglobin 9.2L, Hematocrit 27.6L , Mean Corpuscular Volume 83, Mean Corpuscular Hemoglobin 27.6, Mean Corpuscular Hemoglobin Concent 33.2, Red Cell Distribution Width 12.3, Platelet Count 209, Mean Platelet Volume 6.6, Neutrophils (%) (Auto) 79.0H, Lymphocytes ( %) (Auto) 11.5L, Monocytes (%) (Auto) 5.9, Eosinophils (%) (Auto) 2.9, Basophils (%) (Auto) 0.7, Sodium Level 133L, Potassium Level 4.6, Chloride Level 100, Carbon Dioxide Level 21, Anion Gap 12, Blood Urea Nitrogen 85H, Creatinine 6.9H, Estimat Glomerular Filtration Rate 8.1, Glucose Level 215#H, Uric Acid 10.1H, Calcium Level 8.7, Phosphorus Level 7.2H, Magnesium Level 2.1, Total Bilirubin 0.2, Aspartate Amino Transf (AST/SGOT) 9L, Alanine Aminotransferase (ALT/SGPT) 26, Alkaline Phosphatase 92, Total Protein 6.6, Albumin 2.2L, Globulin 4.4, Albumin/Globulin Ratio 0.5L Height (Feet): 5 Height (Inches): 9.00 Weight (Pounds): 214 General Appearance: no apparent distress EENT: normal ENT inspection Neck: supple Cardiovascular: normal rate Respiratory/Chest: decreased breath sounds Abdomen: soft, hypoactive bowel sounds, tender Extremities: non-tender Fish Suero MD November 25, 2018 08:40
[2018-11-25] MEDS: Docusate 100mg cap ORAL SCH ×3 (09:00→18:26)
[2018-11-25] MEDS: Heparin 5000 units/ml inj SUBQ SCH ×2 (09:00→20:22)
--- NOTE | 2018-11-25 09:00 | NUR ---
NURSE NOTES: DAUGHTER SIGNED CONSENT FOR PROCEDURE. WILL CONTINUE MONITOR.
[2018-11-25] MEDS: HYDROmorphone 1mg/ml Carpuject IVP PRN ×2 (09:08→20:25)
[2018-11-25] MEDS: Pantoprazole Inj IVP SCH (09:17)
--- NOTE | 2018-11-25 09:17 | Pre-Procedure Note/Attestation ---
Pre-Procedure Note/Attestation Complete Prior to Procedure Planned Procedure: bilateral Procedure Narrative: nephrostomy placement Indications for Procedure Pre-Operative Diagnosis: obstructive uropathy Attestation I attest that I discussed the nature of the procedure; its benefits; risks and complications; and alternatives (and the risks and benefits of such alternatives ), prior to the procedure, with the patient (or the patient's legal account retention representative). I attest that, if there was a reasonable possibility of needing a blood transfusion, the patient (or the patient's legal account retention representative) was given the [facility] standardized written summary, pursuant to the [place] Denis Blood Safety Act ([place] Health and Safety Code # 1645, as amended). I attest that I re-evaluated the patient just prior to the surgery and that there has been no change in the patient's H&P, except as documented below: Discussed with daughter by phone at [phone] Ismael Davis MD November 25, 2018 09:17
--- NOTE | 2018-11-25 09:54 | General Progress Note ---
Assessment/Plan Problem List: (1) Dehydration ICD Codes: E86.0 - Dehydration SNOMED: 61435358 (2) myofibroblastoma (3) urinary stent (4) Hyperkalemia ICD Codes: E87.5 - Hyperkalemia SNOMED: 22938441 (5) Renal failure ICD Codes: N19 - Unspecified kidney failure SNOMED: 83612058 Status: unchanged Assessment/Plan: renal uro f/u pain control cbc bmp am Subjective Constitutional: Reports: weakness Allergies: Coded Allergies: No Known Allergies (Unverified , 11/23/18) All Systems: reviewed and negative except above Subjective sleepy calm Objective Last 24 Hour Vital Signs Date Time Temp Pulse Resp B/P (MAP) Pulse Ox O2 Delivery O2 Flow Rate FiO2 11/25/18 08:54 98.4 88 20 148/78 (101) 98 11/25/18 04:00 Room Air 11/25/18 04:00 98.9 87 20 129/78 (95) 96 11/25/18 04:00 87 11/25/18 00:00 Room Air 11/25/18 00:00 98.7 88 20 137/82 (100) 96 11/25/18 00:00 83 11/24/18 20:00 97.9 82 18 153/86 (108) 98 11/24/18 20:00 Room Air 11/24/18 16:00 98.4 78 20 138/80 (99) 97 11/24/18 16:00 Room Air 11/24/18 15:38 74 11/24/18 13:00 Room Air 11/24/18 12:00 Room Air 11/24/18 12:00 98.2 76 22 147/73 (97) 98 11/24/18 11:23 Room Air Intake and Output 11/24/18 11/25/18 19:00 07:00 Intake Total 1765 ml 800 ml Output Total 250 ml 1200 ml Balance 1515 ml -400 ml Intake Oral 960 ml IV Total 805 ml 800 ml Output Urine Total 250 ml 1200 ml Stool Total 0 ml # Voids 2 Laboratory Tests 11/24/18 14:30: Stool Occult Blood [Pending] 11/24/18 16:05: White Blood Count 9.9, Red Blood Count 3.58L, Hemoglobin 9.7L, Hematocrit 29.4L , Mean Corpuscular Volume 82, Mean Corpuscular Hemoglobin 27.2, Mean Corpuscular Hemoglobin Concent 33.1, Red Cell Distribution Width 12.1, Platelet Count 231, Mean Platelet Volume 6.3L, Neutrophils (%) (Auto) 80.3H, Lymphocytes (%) (Auto) 9.6L, Monocytes (%) (Auto) 8.1, Eosinophils (%) (Auto) 1.1, Basophils (%) (Auto) 0.9, Sodium Level 131L, Potassium Level 5.7H, Chloride Level 101, Carbon Dioxide Level 20L, Anion Gap 10, Blood Urea Nitrogen 80H, Creatinine 5.8H, Estimat Glomerular Filtration Rate 9.9, Glucose Level 388#H, Lactic Acid Level 0.70, Uric Acid 9.7H, Calcium Level 8.7, Phosphorus Level 6.2H , Magnesium Level 2.1, Total Bilirubin 0.3, Aspartate Amino Transf (AST/SGOT) 10L, Alanine Aminotransferase (ALT/SGPT) 33, Alkaline Phosphatase 102, C- Reactive Protein, Quantitative 23.8H, Pro-B-Type Natriuretic Peptide 2544H, Total Protein 6.9, Albumin 2.4L, Globulin 4.5, Albumin/Globulin Ratio 0.5L 11/25/18 03:25: White Blood Count 9.4, Red Blood Count 3.32L, Hemoglobin 9.2L, Hematocrit 27.6L , Mean Corpuscular Volume 83, Mean Corpuscular Hemoglobin 27.6, Mean Corpuscular Hemoglobin Concent 33.2, Red Cell Distribution Width 12.3, Platelet Count 209, Mean Platelet Volume 6.6, Neutrophils (%) (Auto) 79.0H, Lymphocytes ( %) (Auto) 11.5L, Monocytes (%) (Auto) 5.9, Eosinophils (%) (Auto) 2.9, Basophils (%) (Auto) 0.7, Sodium Level 133L, Potassium Level 4.6, Chloride Level 100, Carbon Dioxide Level 21, Anion Gap 12, Blood Urea Nitrogen 85H, Creatinine 6.9H, Estimat Glomerular Filtration Rate 8.1, Glucose Level 215#H, Uric Acid 10.1H, Calcium Level 8.7, Phosphorus Level 7.2H, Magnesium Level 2.1, Total Bilirubin 0.2, Aspartate Amino Transf (AST/SGOT) 9L, Alanine Aminotransferase (ALT/SGPT) 26, Alkaline Phosphatase 92, Total Protein 6.6, Albumin 2.2L, Globulin 4.4, Albumin/Globulin Ratio 0.5L Height (Feet): 5 Height (Inches): 9.00 Weight (Pounds): 214 General Appearance: lethargic EENT: normal ENT inspection Neck: normal alignment Cardiovascular: normal peripheral pulses, normal rate, regular rhythm Respiratory/Chest: chest wall non-tender, lungs clear, normal breath sounds Abdomen: normal bowel sounds, non tender, soft Extremities: normal inspection Edema: no edema noted Arm (L), no edema noted Arm (R), no edema noted Leg (L), no edema noted Leg (R), no edema noted Pedal (L), no edema noted Pedal (R), no edema noted Generalized Neurologic: motor weakness Skin: normal pigmentation, warm/dry Gopal Tracy November 25, 2018 09:54
[2018-11-25] MEDS: Sodium Bicarbonate 50 ML in 1/2 NS 1000ml 1,000 ML IV SCH ×2 (10:22→20:22)
--- NOTE | 2018-11-25 11:07 | Pulmonology Progress Note ---
Assessment/Plan Problems: (1) Hyperkalemia (2) ATN (acute tubular necrosis) (3) myofibroblastoma (4) Retroperitoneal fibrosis Assessment/Plan IV fluids nephrostomy scheduled for today K better check electrolytes symptomatic treatment. dvt prophylaxis. Subjective ROS Limited/Unobtainable: No Constitutional: Reports: no symptoms HEENT: Repors: no symptoms Respiratory: Reports: no symptoms Allergies: Coded Allergies: No Known Allergies (Unverified , 11/23/18) Objective Last 24 Hour Vital Signs Date Time Temp Pulse Resp B/P (MAP) Pulse Ox O2 Delivery O2 Flow Rate FiO2 11/25/18 08:54 98.4 88 20 148/78 (101) 98 11/25/18 08:00 77 11/25/18 08:00 Room Air 11/25/18 04:00 Room Air 11/25/18 04:00 98.9 87 20 129/78 (95) 96 11/25/18 04:00 87 11/25/18 00:00 Room Air 11/25/18 00:00 98.7 88 20 137/82 (100) 96 11/25/18 00:00 83 11/24/18 20:00 97.9 82 18 153/86 (108) 98 11/24/18 20:00 Room Air 11/24/18 16:00 98.4 78 20 138/80 (99) 97 11/24/18 16:00 Room Air 11/24/18 15:38 74 11/24/18 13:00 Room Air 11/24/18 12:00 Room Air 11/24/18 12:00 98.2 76 22 147/73 (97) 98 11/24/18 11:23 Room Air Intake and Output 11/24/18 11/25/18 18:59 06:59 Intake Total 1610 ml 955 ml Output Total 250 ml 1200 ml Balance 1360 ml -245 ml Intake Oral 960 ml IV Total 650 ml 955 ml Output Urine Total 250 ml 1200 ml Stool Total 0 ml # Voids 2 General Appearance: WD/WN HEENT: normocephalic, atraumatic Respiratory/Chest: chest wall non-tender, lungs clear Cardiovascular: normal peripheral pulses, normal rate Abdomen: normal bowel sounds, soft, non tender Genitourinary: normal external genitalia Extremities: no clubbing 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 Lymphatic: no neck adenopathy Laboratory Tests 11/24/18 14:30: Stool Occult Blood [Pending] 11/24/18 16:05: White Blood Count 9.9, Red Blood Count 3.58L, Hemoglobin 9.7L, Hematocrit 29.4L , Mean Corpuscular Volume 82, Mean Corpuscular Hemoglobin 27.2, Mean Corpuscular Hemoglobin Concent 33.1, Red Cell Distribution Width 12.1, Platelet Count 231, Mean Platelet Volume 6.3L, Neutrophils (%) (Auto) 80.3H, Lymphocytes (%) (Auto) 9.6L, Monocytes (%) (Auto) 8.1, Eosinophils (%) (Auto) 1.1, Basophils (%) (Auto) 0.9, Sodium Level 131L, Potassium Level 5.7H, Chloride Level 101, Carbon Dioxide Level 20L, Anion Gap 10, Blood Urea Nitrogen 80H, Creatinine 5.8H, Estimat Glomerular Filtration Rate 9.9, Glucose Level 388#H, Lactic Acid Level 0.70, Uric Acid 9.7H, Calcium Level 8.7, Phosphorus Level 6.2H , Magnesium Level 2.1, Total Bilirubin 0.3, Aspartate Amino Transf (AST/SGOT) 10L, Alanine Aminotransferase (ALT/SGPT) 33, Alkaline Phosphatase 102, C- Reactive Protein, Quantitative 23.8H, Pro-B-Type Natriuretic Peptide 2544H, Total Protein 6.9, Albumin 2.4L, Globulin 4.5, Albumin/Globulin Ratio 0.5L 11/25/18 03:25: White Blood Count 9.4, Red Blood Count 3.32L, Hemoglobin 9.2L, Hematocrit 27.6L , Mean Corpuscular Volume 83, Mean Corpuscular Hemoglobin 27.6, Mean Corpuscular Hemoglobin Concent 33.2, Red Cell Distribution Width 12.3, Platelet Count 209, Mean Platelet Volume 6.6, Neutrophils (%) (Auto) 79.0H, Lymphocytes ( %) (Auto) 11.5L, Monocytes (%) (Auto) 5.9, Eosinophils (%) (Auto) 2.9, Basophils (%) (Auto) 0.7, Sodium Level 133L, Potassium Level 4.6, Chloride Level 100, Carbon Dioxide Level 21, Anion Gap 12, Blood Urea Nitrogen 85H, Creatinine 6.9H, Estimat Glomerular Filtration Rate 8.1, Glucose Level 215#H, Uric Acid 10.1H, Calcium Level 8.7, Phosphorus Level 7.2H, Magnesium Level 2.1, Total Bilirubin 0.2, Aspartate Amino Transf (AST/SGOT) 9L, Alanine Aminotransferase (ALT/SGPT) 26, Alkaline Phosphatase 92, Total Protein 6.6, Albumin 2.2L, Globulin 4.4, Albumin/Globulin Ratio 0.5L Current Medications Medications (Trade) Dose Ordered Sig/Sp Route PRN Reason Start Time Stop Time Status Last Admin Dose Admin Acetaminophen (Tylenol) 650 mg Q4H PRN ORAL fever (Temp>100.5F) 11/24/18 10:30 12/23/18 22:29 Ceftriaxone Sodium 1 gm/ Dextrose 55 ml @ 110 mls/hr Q24H IVPB 11/24/18 18:00 12/01/18 17:59 11/24/18 18:41 Dextrose (Dextrose 50%) 25 ml Q30M PRN IV Hypoglycemia 11/24/18 10:30 12/23/18 22:29 Docusate Sodium (Colace) 100 mg THREE TIMES A DAY ORAL 11/24/18 13:00 12/24/18 12:59 11/24/18 18:45 Heparin Sodium (Porcine) (Heparin 5000 units/ml) 5,000 units EVERY 12 HOURS SUBQ 11/24/18 21:00 12/24/18 08:59 Hydromorphone HCl (Dilaudid) 1 mg Q4H PRN IVP For Pain 11/24/18 12:00 12/01/18 11:59 11/25/18 09:08 Insulin Aspart (NovoLOG) BEFORE MEALS AND HS SUBQ 11/24/18 21:00 12/24/18 20:59 11/25/18 05:33 Insulin Detemir (Levemir) 22 units BEDTIME SUBQ 11/24/18 21:00 12/24/18 20:59 11/24/18 20:41 Metoclopramide HCl (Reglan) 10 mg Q6H PRN IVP Nausea & Vomiting 11/24/18 12:00 12/24/18 11:59 Metoclopramide HCl (Reglan) 10 mg Q8H PRN IVP Nausea & Vomiting 11/24/18 18:00 12/24/18 17:59 Nitroglycerin (Ntg) 0.4 mg Q5M X 3 DOSES PRN SL Prn Chest Pain 11/24/18 10:30 12/23/18 22:29 Pantoprazole (Protonix) 40 mg DAILY IVP 11/24/18 11:45 12/24/18 11:44 11/25/18 09:17 Polyethylene Glycol (Miralax) 17 gm HSPRN PRN ORAL Constipation 11/24/18 21:00 12/23/18 20:59 Sevelamer Carbonate (Renvela) 1,600 mg THREE TIMES A DAY ORAL 11/25/18 09:00 12/25/18 08:59 Sodium Bicarbonate 50 ml/ Sodium Chloride 1,050 ml @ 100 mls/hr [id number] IV 11/24/18 12:30 12/24/18 12:29 11/25/18 10:22 Sodium Citrate (Bicitra) 30 ml EVERY 6 HOURS ORAL 11/24/18 12:00 12/24/18 11:59 11/25/18 05:20 Tamsulosin HCl (Flomax) 0.4 mg BEDTIME ORAL 11/24/18 21:00 12/24/18 20:59 11/24/18 20:37 Temazepam (Restoril) 15 mg HSPRN PRN ORAL Insomnia 11/24/18 21:00 11/30/18 20:59 Roberto Caballero MD November 25, 2018 11:07
--- NOTE | 2018-11-25 11:44 | NUR ---
P.T NOTE: P.T EVALUATION COMPLETED. BASED ON P.T EVALUATION, PATIENT IS NOT A CANDIDATE FOR SKILLED P.T SERVICE PATIENT ALREADY BASELINE INDEPENDENT. CURRENT FUNCTIONAL STATUS DOES WARRANT SKILLED P.T SERVICES. ENCOURAGED PATIENT OOB ACTIVITIES I.E SIT IN CHAIR DURING MEALS AND AMBULATE TOLERATED. RN NOTIFIED. D/C P.T SERVICE. THANK YOU FOR HIS REFERRAL.
[2018-11-25] MEDS ORDERED: fentaNYL 100 mcg/2 mL IV ONE (12:30)
[2018-11-25] MEDS ORDERED: Midazolam 2mg/2ml Inj ONE (12:30)
--- NOTE | 2018-11-25 12:47 | NUR ---
DIRECT CARE PROFESSIONAL NOTES PLACED A CALL TO [facility] FOR TRANSFER, LEFT MESSAGE FOR ADMITTING TO RETURN CALL. WILL FOLLOW UP. [facility] [phone]
--- NOTE | 2018-11-25 12:50 | NUR ---
NURSE NOTES: PATIENT WAS PICKED UP BY SADA ALY AND BROUGHT DOWN FOR THE PROCEDURE ACCOMPANIED BY THE DAUGHTER.
--- NOTE | 2018-11-25 12:51 | NUR ---
*-* INSURANCE *-* UPDATED CLINICALS AND REVIEWS HAVE BEEN FAXED TO: NOEMY BETTS:ARSLAN [phone]
--- NOTE | 2018-11-25 12:57 | NUR ---
SPEECH LANGUAGE PATHOLOGIST TRAVELHELP DESK ASSISTANT SI:DEHYDRATION. RENAL FAILURE. HYPERKALEMIA VS: BP 153/86, P 88, T 98.9, RR 20, SpO2 96 RBC 3.32, H&H 9.2/27.6, Na 133, BUN 85, Cr 6.9 IS:RENVELA 1,600mg HEPARIN SUBQ LEVEMIR SUBQ NOVOLOG SUBQ SODIUM BICARBONATE 1050ml IV DILAUDID 1mg IVP PROTONIX 40mg IVP NEPHROSTOMY TUBE 11/25/18 SDU STATUS
--- NOTE | 2018-11-25 13:04 | Nephrology Progress Note ---
Assessment/Plan Problem List: (1) Hyperkalemia (2) ATN (acute tubular necrosis) (3) CKD (chronic kidney disease) stage 5, GFR less than 15 ml/min (4) Retroperitoneal mass Assessment Renal failure, Hyperkalemia long h/o DM retroperitoneal mass, bilateral moderate hydro, nature of mass myofibroma Anemia Plan Uro eval appreciated- due for Nephrostomy tube today kayexelate and reglan and renal diet, serum K now normalized monitor K Flomax may require HD if nephrostomy does not improve the renal faunction JES and CT results noted Subjective ROS Limited/Unobtainable: No Constitutional: Reports: malaise Objective Objective Last 24 Hour Vital Signs Date Time Temp Pulse Resp B/P (MAP) Pulse Ox O2 Delivery O2 Flow Rate FiO2 11/25/18 12:00 Room Air 11/25/18 12:00 98.6 80 14 151/78 (102) 96 11/25/18 08:54 98.4 88 20 148/78 (101) 98 11/25/18 08:00 77 11/25/18 08:00 Room Air 11/25/18 04:00 Room Air 11/25/18 04:00 98.9 87 20 129/78 (95) 96 11/25/18 04:00 87 11/25/18 00:00 Room Air 11/25/18 00:00 98.7 88 20 137/82 (100) 96 11/25/18 00:00 83 11/24/18 20:00 97.9 82 18 153/86 (108) 98 11/24/18 20:00 Room Air 11/24/18 16:00 98.4 78 20 138/80 (99) 97 11/24/18 16:00 Room Air 11/24/18 15:38 74 Intake and Output 11/24/18 11/25/18 18:59 06:59 Intake Total 1610 ml 955 ml Output Total 250 ml 1200 ml Balance 1360 ml -245 ml Intake Oral 960 ml IV Total 650 ml 955 ml Output Urine Total 250 ml 1200 ml Stool Total 0 ml # Voids 2 Laboratory Tests 11/24/18 14:30: Stool Occult Blood [Pending] 11/24/18 16:05: White Blood Count 9.9, Red Blood Count 3.58L, Hemoglobin 9.7L, Hematocrit 29.4L , Mean Corpuscular Volume 82, Mean Corpuscular Hemoglobin 27.2, Mean Corpuscular Hemoglobin Concent 33.1, Red Cell Distribution Width 12.1, Platelet Count 231, Mean Platelet Volume 6.3L, Neutrophils (%) (Auto) 80.3H, Lymphocytes (%) (Auto) 9.6L, Monocytes (%) (Auto) 8.1, Eosinophils (%) (Auto) 1.1, Basophils (%) (Auto) 0.9, Sodium Level 131L, Potassium Level 5.7H, Chloride Level 101, Carbon Dioxide Level 20L, Anion Gap 10, Blood Urea Nitrogen 80H, Creatinine 5.8H, Estimat Glomerular Filtration Rate 9.9, Glucose Level 388#H, Lactic Acid Level 0.70, Uric Acid 9.7H, Calcium Level 8.7, Phosphorus Level 6.2H , Magnesium Level 2.1, Total Bilirubin 0.3, Aspartate Amino Transf (AST/SGOT) 10L, Alanine Aminotransferase (ALT/SGPT) 33, Alkaline Phosphatase 102, C- Reactive Protein, Quantitative 23.8H, Pro-B-Type Natriuretic Peptide 2544H, Total Protein 6.9, Albumin 2.4L, Globulin 4.5, Albumin/Globulin Ratio 0.5L 11/25/18 03:25: White Blood Count 9.4, Red Blood Count 3.32L, Hemoglobin 9.2L, Hematocrit 27.6L , Mean Corpuscular Volume 83, Mean Corpuscular Hemoglobin 27.6, Mean Corpuscular Hemoglobin Concent 33.2, Red Cell Distribution Width 12.3, Platelet Count 209, Mean Platelet Volume 6.6, Neutrophils (%) (Auto) 79.0H, Lymphocytes ( %) (Auto) 11.5L, Monocytes (%) (Auto) 5.9, Eosinophils (%) (Auto) 2.9, Basophils (%) (Auto) 0.7, Sodium Level 133L, Potassium Level 4.6, Chloride Level 100, Carbon Dioxide Level 21, Anion Gap 12, Blood Urea Nitrogen 85H, Creatinine 6.9H, Estimat Glomerular Filtration Rate 8.1, Glucose Level 215#H, Uric Acid 10.1H, Calcium Level 8.7, Phosphorus Level 7.2H, Magnesium Level 2.1, Total Bilirubin 0.2, Aspartate Amino Transf (AST/SGOT) 9L, Alanine Aminotransferase (ALT/SGPT) 26, Alkaline Phosphatase 92, Total Protein 6.6, Albumin 2.2L, Globulin 4.4, Albumin/Globulin Ratio 0.5L Height (Feet): 5 Height (Inches): 7.00 Weight (Pounds): 214 General Appearance: no apparent distress Cardiovascular: normal rate Respiratory/Chest: lungs clear Abdomen: soft aGvino Garcia MD November 25, 2018 13:04
--- NOTE | 2018-11-25 13:20 | Moderate Sedation - Procedural ---
Moderate Sedation HPI Home Medication Reported Medications Senna [place] Extract (SENNA) 176 Mg/5 Ml Syrup, 17.6 MG PO HS PRN for Constipation , ML 11/23/18 Polyethylene Glycol 3350* (MIRALAX*) 17 Gm Powd.pack, 17 GM ORAL DAILY, PACKET 11/23/18 OXYCODONE HCl* (ROXICODONE*) 15 Mg Tablet, 5 MG ORAL Q4HR PRN for For Pain, TAB 11/23/18 [Lispro 7-8U Acmeals] No Conflict Check 11/23/18 Insulin Glargine (LANTUS) 100 Unit/1 Ml Insuln.pen, 22 SUBQ DAILY, #1 EA 0 Refills 11/23/18 Gabapentin* (GABAPENTIN*) 100 Mg Capsule, 100 MG ORAL DAILY, CAP 11/23/18 Docusate Sodium* (COLACE*) 100 Mg Capsule, 100 MG ORAL TWICE A DAY, CAP 11/23/18 Atorvastatin Calcium* (LIPITOR*) 20 Mg Tablet, 20 MG ORAL BEDTIME, TAB 11/23/18 Acetaminophen* (ACETAMINOPHEN*) 160 Mg/5 Ml Solution, 1000 MG ORAL Q6H PRN for Mild Pain/Temp > 100.5, ML 11/23/18 Patient History Allergies: Coded Allergies: No Known Allergies (Unverified , 11/23/18) Pre-Procedural Mod Sedation Date: November 25, 2018 Pre-Assessment Time: 13:20 Pre-Sedation Assessment: Elective, Eval. Immed. Prior to Sed Airway Assessment (Malampati): III Evaluation Hx of untoward rxns to mod sed: No Procedures/Plans: Radiology Plan for Moderate Sedation: Midazolam, Fentanyl ASA Score: II Informed Consent The nature of the procedure/sedation; its benefits; risks and complications; and alternatives (and the risks and benefits of such alternatives) were discussed with the patient (or their legal enrollment representative), prior to the procedure. All questions were answered to the patient's (or their legal enrollment representative's) satisfaction and the patient (or their legal enrollment representative) gave informed consent to the procedure. I attest that I re-evaluated the patient just prior to the surgery and that there has been no change in the patient's H&P, except as documented below: Post Procedure Assessment Post Procedure TIme: 14:40 Communication: No Apparent Limitation Mental Status: Awake Respiration: Unlabored Skin Condition: WNL Adomen: WNL Nausea: NO Vomiting: NO Ismael Davis MD November 25, 2018 13:20
--- NOTE | 2018-11-25 13:23 | NUR ---
NURSE NOTES: STATISTICS INTERN ON STANDBY MODE. PATIENT OFF THE UNIT.
[2018-11-25] MEDS ORDERED: Omnipaque-300 100ml vial INJ PRN (13:30)
[2018-11-25] MEDS ORDERED: Lidocaine 1% Plain 30 ml INJ PRN (13:30)
[2018-11-25] MEDS ORDERED: Heparin1,000 units/500ml Premix(Conc:2 units/ml) INJ PRN (13:30)
[2018-11-25] MEDS ORDERED: ceFAZolin sod 1 GM in D5W 55 ML IVPB ONE (14:15)
--- NOTE | 2018-11-25 14:54 | Brief Operative Note ---
Immediate Post Operative Note Operative Note Pre-op Diagnosis: obstructive uropathy Procedure: Bilateral nephrostomy Post-op Diagnosis: same as pre-op Findings: consistent w/pre-op dx studies Surgeon: Selena Rdz Anesthesia: moderate sedation Specimen: none Complications: none Condition: stable Fluids: none Drains: other - Bilat 8 Fr. pigtail nephrostomies Implant(s) used?: No Ismael Rdz MD November 25, 2018 14:54
--- NOTE | 2018-11-25 14:56 | Diagnostic Imaging Report ---
APPROVED REPORT CPT Code: 49648 Present Symptoms Comments: Screening BILATERAL: Imaging reveals a patent deep venous system bilaterally. There is no evidence of thrombus within the common femoral, superficial femoral, popliteal or tibial segments. The greater saphenous veins are within normal limits. Doppler indicates normal spontaneous flow within these segments.
--- NOTE | 2018-11-25 15:28 | NUR ---
NURSE NOTES: Patient arrived from recovery with SADA Bergman and transport,awake ,Angolan speaking,able to communicate Daughter interprets,with saxena,right and left neprostomy draining light cranberry to bag,dressing dry intact report received from SADA Bergman
--- NOTE | 2018-11-25 15:30 | Diagnostic Imaging Report ---
Indication: Acute renal failure, bilateral hydronephrosis demonstrated on recent sonogram and CT scan Technique: Prior imaging studies reviewed. Informed consent obtained prior to commencement of the procedure from patient's daughter. Procedural timeout performed. Total sterile technique, including sterile gloves and hand hygiene, hat, mask, sterile gown, large sterile drape, and preparation with 2% chlorhexidine utilized. Attention initially turned to the right kidney. Local anesthesia with 1% lidocaine, both deep and superficial. Under real-time ultrasound guidance, a 21-gauge needle was directed into a posterior lower pole calyx. The stylette was removed, and spontaneous return of urine was observed. Contrast was injected, confirming placement of the needle tip into the renal collecting system. 0.018 guidewire was inserted, over which was inserted a 6 [place] introducer assembly. The stiffener and dilator were removed. A 0.035 guidewire was inserted, with the 0.018 guidewire left in as a safety wire. An 8 [place] Flexima nephrostomy catheter was then inserted over the guidewire under fluoroscopic guidance, and the guidewire was removed. The pigtail was formed and locked. Contrast was injected, confirming satisfactory positioning of the pigtail within the right renal pelvis. Attention then turned to the left kidney. Local anesthesia with 1% lidocaine, both deep and superficial. Under real-time ultrasound guidance, a 21-gauge needle was directed into a posterior lower pole calyx. The stylette was removed, and spontaneous return of urine was observed. Contrast was injected, confirming placement of the needle tip into the renal collecting system. 0.018 guidewire was inserted, over which was inserted a 6 [place] introducer assembly. The stiffener and dilator were removed. A 0.035 guidewire was inserted, with the 0.018 guidewire left in as a safety wire. An 8 [place] Flexima nephrostomy catheter was then inserted over the guidewire under fluoroscopic guidance, and the guidewire was removed. The pigtail was formed and locked. Contrast was injected, confirming satisfactory positioning of the pigtail within the left renal pelvis. Both catheters fixed to the skin. And placed to gravity drainage. The patient tolerated the procedure well, without immediate complication. Total fluoroscopy time 69.2 seconds. Total dose area product [id number] Number of images: 13 Comparison: Reference made to abdominal sonogram and CT scan dated 11/24/2018 Findings: Intraprocedural imaging demonstrates bilateral hydronephrosis. Completion images demonstrate satisfactory position of the pigtail catheters within each of the renal pelvises. Bilateral nephroureteral stents are noted as well. Impression: Successful placement of bilateral 8 [place] nephrostomy catheters, as described
[2018-11-25] MEDS ORDERED: fentaNYL 100 mcg/2 mL IV SCH (15:44)
[2018-11-25] MEDS ORDERED: DiphenhydrAMINE 50mg/ml Inj IVP SCH (15:45)
--- NOTE | 2018-11-25 16:02 | NUR ---
NURSE NOTES: ANCEF IV WAS GIVEN TO THE PATIENT BY SADA ALY.
--- NOTE | 2018-11-25 16:34 | NUR ---
*-* INSURANCE *-* UPDATED CLINICALS AND REVIEWS HAVE BEEN FAXED TO: NOEMY BETTS:ARSLAN [phone]
[2018-11-25] MEDS: cefTRIAXone 1 GM in D5W 55 ML IVPB SCH (18:24)
--- NOTE | 2018-11-25 18:47 | NUR ---
NURSE NOTES: NOTED LEFT AND RIGHT NEPHROSTOMY TUBE, DRAINING BY GRAVITY. NO SIGNS OF DISTRESS. ON ROOM AIR. UZBEK SPEAKING. WILL CONTINUE TO MONITOR.
--- NOTE | 2018-11-25 19:04 | Infectious Diseases Prog Note ---
Assessment/Plan Assessment/Plan ASSESSMENT: The patient is a 63-year-old male with, Abdominal pain (due to a cancerous process). Afebrile. Normal white blood cells. No evidence of intraabdominal infectious process or urinary tract infection. Myofibroblastoma. History of renal insufficiency. Status post ureteral stent placement. Diabetes PLAN: noted pt was started on IV Rocephin d# 1 ( november DC after Uro follow GI and Nephrology recommendations. Monitor CBC. Monitor BMP Bl Nephrostomy tube today Subjective Allergies: Coded Allergies: No Known Allergies (Unverified , 11/23/18) Subjective Afebrile Objective Vital Signs Last 24 Hour Vital Signs Date Time Temp Pulse Resp B/P (MAP) Pulse Ox O2 Delivery O2 Flow Rate FiO2 11/25/18 16:49 80 11/25/18 16:00 Room Air 11/25/18 15:27 97.6 80 16 95 Nasal Cannula 3.0 86 98 11/25/18 15:25 98.0 79 20 150/82 95 Room Air 11/25/18 15:10 75 20 153/83 96 Room Air 11/25/18 15:05 78 18 153/85 96 Room Air 11/25/18 15:00 97.9 78 19 159/88 96 Room Air 11/25/18 14:50 83 16 155/85 (108) 99 11/25/18 14:40 78 16 160/88 (112) 100 11/25/18 14:30 97.3 83 16 153/94 (113) 99 11/25/18 14:25 86 16 165/94 (117) 99 11/25/18 14:20 87 16 156/96 (116) 99 11/25/18 14:15 88 18 153/94 (113) 99 11/25/18 14:10 88 16 160/94 (116) 100 11/25/18 14:05 88 18 164/91 (115) 100 11/25/18 14:00 85 18 159/95 (116) 99 11/25/18 13:55 89 18 155/93 (113) 100 11/25/18 13:50 97.6 97 18 149/96 (113) 99 11/25/18 12:00 Room Air 11/25/18 12:00 98.6 80 14 151/78 (102) 96 11/25/18 11:36 108 11/25/18 08:54 98.4 88 20 148/78 (101) 98 11/25/18 08:00 77 11/25/18 08:00 Room Air 11/25/18 04:00 Room Air 11/25/18 04:00 98.9 87 20 129/78 (95) 96 11/25/18 04:00 87 11/25/18 00:00 Room Air 11/25/18 00:00 98.7 88 20 137/82 (100) 96 11/25/18 00:00 83 11/24/18 20:00 97.9 82 18 153/86 (108) 98 11/24/18 20:00 Room Air Height (Feet): 5 Height (Inches): 7.00 Weight (Pounds): 214 HEENT: anicteric Respiratory/Chest: normal breath sounds Cardiovascular: no gallop/murmur Abdomen: soft, non tender Laboratory Tests Test 11/25/18 03:25 11/25/18 11:38 White Blood Count 9.4 K/UL (4.8-10.8) Red Blood Count 3.32 M/UL (4.70-6.10) L Hemoglobin 9.2 G/DL (14.2-18.0) L Hematocrit 27.6 % (42.0-52.0) L Mean Corpuscular Volume 83 FL (80-99) Mean Corpuscular Hemoglobin 27.6 PG (27.0-31.0) Mean Corpuscular Hemoglobin Concent 33.2 G/DL (32.0-36.0) Red Cell Distribution Width 12.3 % (11.6-14.8) Platelet Count 209 K/UL (150-450) Mean Platelet Volume 6.6 FL (6.5-10.1) Neutrophils (%) (Auto) 79.0 % (45.0-75.0) H Lymphocytes (%) (Auto) 11.5 % (20.0-45.0) L Monocytes (%) (Auto) 5.9 % (1.0-10.0) Eosinophils (%) (Auto) 2.9 % (0.0-3.0) Basophils (%) (Auto) 0.7 % (0.0-2.0) Sodium Level 133 MMOL/L (136-145) L Potassium Level 4.6 MMOL/L (3.5-5.1) Chloride Level 100 MMOL/L (98-107) Carbon Dioxide Level 21 MMOL/L (21-32) Anion Gap 12 mmol/L (5-15) Blood Urea Nitrogen 85 mg/dL (7-18) H Creatinine 6.9 MG/DL (0.55-1.30) H Estimat Glomerular Filtration Rate 8.1 mL/min (>60) Glucose Level 215 MG/DL (74-106) #H Uric Acid 10.1 MG/DL (2.6-7.2) H Calcium Level 8.7 MG/DL (8.5-10.1) Phosphorus Level 7.2 MG/DL (2.5-4.9) H Magnesium Level 2.1 MG/DL (1.8-2.4) Total Bilirubin 0.2 MG/DL (0.2-1.0) Aspartate Amino Transf (AST/SGOT) 9 U/L (15-37) L Alanine Aminotransferase (ALT/SGPT) 26 U/L (12-78) Alkaline Phosphatase 92 U/L (46-116) Total Protein 6.6 G/DL (6.4-8.2) Albumin 2.2 G/DL (3.4-5.0) L Globulin 4.4 g/dL Albumin/Globulin Ratio 0.5 (1.0-2.7) L Stool Occult Blood Negative (NEGATIVE) Current Medications Medications (Trade) Dose Ordered Sig/Sp Route PRN Reason Start Time Stop Time Status Last Admin Dose Admin Acetaminophen (Tylenol) 650 mg Q4H PRN ORAL fever (Temp>100.5F) 11/24/18 10:30 12/23/18 22:29 Ceftriaxone Sodium 1 gm/ Dextrose 55 ml @ 110 mls/hr Q24H IVPB 11/24/18 18:00 12/01/18 17:59 11/25/18 18:24 Dextrose (Dextrose 50%) 25 ml Q30M PRN IV Hypoglycemia 11/24/18 10:30 12/23/18 22:29 Diphenhydramine HCl (Benadryl) 50 mg ONCE IVP 11/25/18 15:45 11/25/18 23:59 11/25/18 13:45 Docusate Sodium (Colace) 100 mg THREE TIMES A DAY ORAL 11/24/18 13:00 5/30/19 12:59 11/25/18 18:26 Fentanyl Citrate (Sublimaze 100 mcg/2 mL) 100 mcg ONCE IV 11/25/18 15:44 11/25/18 23:59 11/25/18 13:45 Heparin Sodium (Porcine) (Heparin 5000 units/ml) 5,000 units EVERY 12 HOURS SUBQ 11/24/18 21:00 12/24/18 08:59 Heparin Sodium/ Sodium Chloride (Heparin 1000 units/500ml Premix) 1,000 unit ONCE PRN INJ RADIOLOGY PROCEDURE 11/25/18 13:30 11/25/18 23:59 Hydromorphone HCl (Dilaudid) 1 mg Q4H PRN IVP For Pain 11/24/18 12:00 12/01/18 11:59 11/25/18 09:08 Insulin Aspart (NovoLOG) BEFORE MEALS AND HS SUBQ 11/24/18 21:00 12/24/18 20:59 11/25/18 18:25 Insulin Detemir (Levemir) 22 units BEDTIME SUBQ 11/24/18 21:00 12/24/18 20:59 11/24/18 20:41 Iohexol (OMNIPAQUE-300 100ml) 200 ml ONCE PRN INJ RADIOLOGY PROCEDURE 11/25/18 13:30 11/25/18 23:59 Lidocaine HCl (Xylocaine 1% 30ml) 60 ml ONCE PRN INJ Radiology procedure 11/25/18 13:30 11/25/18 23:59 Metoclopramide HCl (Reglan) 10 mg Q6H PRN IVP Nausea & Vomiting 11/24/18 12:00 12/24/18 11:59 Metoclopramide HCl (Reglan) 10 mg Q8H PRN IVP Nausea & Vomiting 11/24/18 18:00 12/24/18 17:59 Nitroglycerin (Ntg) 0.4 mg Q5M X 3 DOSES PRN SL Prn Chest Pain 11/24/18 10:30 12/23/18 22:29 Pantoprazole (Protonix) 40 mg DAILY ORAL 11/26/18 09:00 12/26/18 08:59 Polyethylene Glycol (Miralax) 17 gm HSPRN PRN ORAL Constipation 11/24/18 21:00 12/23/18 20:59 Sevelamer Carbonate (Renvela) 1,600 mg THREE TIMES A DAY ORAL 11/25/18 09:00 12/25/18 08:59 11/25/18 18:26 Sodium Bicarbonate 50 ml/ Sodium Chloride 1,050 ml @ 100 mls/hr [id number] IV 11/24/18 12:30 12/24/18 12:29 11/25/18 10:22 Sodium Citrate (Bicitra) 30 ml TID ORAL 11/25/18 18:00 12/24/18 11:59 11/25/18 18:26 Tamsulosin HCl (Flomax) 0.4 mg BEDTIME ORAL 11/24/18 21:00 12/24/18 20:59 11/24/18 20:37 Temazepam (Restoril) 15 mg HSPRN PRN ORAL Insomnia 11/24/18 21:00 11/30/18 20:59 Gregory Levy MD November 25, 2018 19:04
--- NOTE | 2018-11-25 19:27 | NUR ---
HAND-OFF: Report given to Shawn Sood RN.
--- NOTE | 2018-11-25 19:29 | NUR ---
NURSE NOTES: BEDSIDE REPORT RECEIVED FROM SADA FITCH. PT IS X4, FAMILY AT BEDSIDE, BELIZEAN SPEAKING. 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 SKIN CLEAN, DRY. L/R NEPHROSTOMY NOTED, RED/CLEAR OUTPUT. OLEARY LOW OUTPUT, DRAINING. LH 20G ASYMPTOMATIC. ORDER TO TRANSFER TO [place], AWAITING BED AVAILIBILITY. BED IS LOCKED IN LOWEST POSITION, SR X3, BED ALARM ON, CALL HARDEN W/ IN REACH. WILL CONTINUE TO MONITOR AND FOLLOW W/ PLAN OF CARE.
[2018-11-25] MEDS: Tamsulosin 0.4mg cap ORAL SCH (20:22)
[2018-11-25] MEDS: Levemir Flexpen SUBQ SCH (20:24)
[2018-11-26] VITALS: BP 126/74
[2018-11-26 04:00] VITALS: BP 130/72
[2018-11-26 04:58] LABS: BASOPHILS % (AUTO) 0.5 % (0.0-2.0); EOSINOPHILS % (AUTO) 6.2 % (0.0-3.0); HEMATOCRIT 27.5 % (42.0-52.0); HEMOGLOBIN 8.9 G/DL (14.2-18.0); LYMPHOCYTES % (AUTO) 18.5 % (20.0-45.0); MEAN CORPUSCULAR VOLUME 83 FL (80-99); MONOCYTES % (AUTO) 8.4 % (1.0-10.0); NEUTROPHILS % (AUTO) 66.4 % (45.0-75.0); PLATELET COUNT 219 K/UL (150-450); RED CELL DISTRIBUTION WIDTH 12.5 % (11.6-14.8); WHITE BLOOD COUNT 6.9 K/UL (4.8-10.8)
[2018-11-26 05:26] LABS: ALANINE AMINOTRANSFERASE 25 U/L (12-78); ALBUMIN 2.2 G/DL (3.4-5.0); ALBUMIN/GLOBULIN RATIO 0.5 (1.0-2.7); ALKALINE PHOSPHATASE 95 U/L (46-116); ANION GAP 10 mmol/L (5-15); ASPARTATE AMINO TRANSFERASE 15 U/L (15-37); BILIRUBIN,TOTAL 0.2 MG/DL (0.2-1.0); BLOOD UREA NITROGEN 70 mg/dL (7-18); CALCIUM 8.9 MG/DL (8.5-10.1); CARBON DIOXIDE 27 MMOL/L (21-32); CHLORIDE 104 MMOL/L (98-107); CREATININE 4.5 MG/DL (0.55-1.30); PHOSPHORUS 6.7 MG/DL (2.5-4.9); POTASSIUM 4.2 MMOL/L (3.5-5.1); SODIUM 141 MMOL/L (136-145)
[2018-11-26] MEDS: Sodium Bicarbonate 50 ML in 1/2 NS 1000ml 1,000 ML IV SCH (05:30)
[2018-11-26] MEDS: NovoLOG Insulin Flexpen SUBQ SCH ×3 (05:30→20:53)
[2018-11-26 05:40] LABS: CREATINE KINASE 19 U/L (26-308); GAMMA GLUTAMYL TRANSPEPTIDASE 34 U/L (5-85)
--- NOTE | 2018-11-26 07:22 | NUR ---
NURSE NOTES: received patient report from eber avalos. patient is on bed awake. not in acute distress. sr all throughout the night. no reports of arrythmias. aox4. skin is intact. B nephrostomy noted. bed is low and locked for safety. will follow plan of care.
--- NOTE | 2018-11-26 07:27 | NUR ---
HAND-OFF: Report given to SADA GIORDANO.
[2018-11-26 09:00] VITALS: BP 138/78
[2018-11-26] MEDS: Sodium Citrate 30ml ORAL SCH (09:24)
[2018-11-26] MEDS: Docusate 100mg cap ORAL SCH ×3 (09:24→18:07)
[2018-11-26] MEDS: Heparin 5000 units/ml inj SUBQ SCH ×2 (09:26→20:52)
--- NOTE | 2018-11-26 10:26 | General Progress Note ---
Assessment/Plan Problem List: (1) myofibroblastoma (2) urinary stent (3) Dehydration ICD Codes: E86.0 - Dehydration SNOMED: 49702327 (4) Hyperkalemia ICD Codes: E87.5 - Hyperkalemia SNOMED: 20343763 Status: unchanged Assessment/Plan: CT and abd us reviewed fu urology>>>s/p nephrostomy tube placement fu labs pain control pending chemo as out patient Subjective ROS Limited/Unobtainable: No Allergies: Coded Allergies: No Known Allergies (Unverified , 11/23/18) Objective Last 24 Hour Vital Signs Date Time Temp Pulse Resp B/P (MAP) Pulse Ox O2 Delivery O2 Flow Rate FiO2 11/26/18 10:12 Room Air 11/26/18 09:00 98.3 77 21 138/78 (98) 96 11/26/18 08:00 89 11/26/18 08:00 Room Air 11/26/18 04:00 Room Air 11/26/18 04:00 79 11/26/18 04:00 98.8 79 16 130/72 (91) 98 11/26/18 01:10 98.9 11/26/18 00:00 Room Air 11/26/18 00:00 100.4 85 18 126/74 (91) 98 11/26/18 00:00 85 11/25/18 20:55 97.6 11/25/18 20:00 99.0 81 16 138/79 (98) 95 11/25/18 20:00 Room Air 11/25/18 16:49 80 11/25/18 16:00 Room Air 11/25/18 15:27 97.6 80 16 95 Nasal Cannula 3.0 86 98 11/25/18 15:25 98.0 79 20 150/82 95 Room Air 11/25/18 15:10 75 20 153/83 96 Room Air 11/25/18 15:05 78 18 153/85 96 Room Air 11/25/18 15:00 97.9 78 19 159/88 96 Room Air 11/25/18 14:50 83 16 155/85 (108) 99 11/25/18 14:40 78 16 160/88 (112) 100 11/25/18 14:30 97.3 83 16 153/94 (113) 99 11/25/18 14:25 86 16 165/94 (117) 99 11/25/18 14:20 87 16 156/96 (116) 99 11/25/18 14:15 88 18 153/94 (113) 99 11/25/18 14:10 88 16 160/94 (116) 100 11/25/18 14:05 88 18 164/91 (115) 100 11/25/18 14:00 85 18 159/95 (116) 99 11/25/18 13:55 89 18 155/93 (113) 100 11/25/18 13:50 97.6 97 18 149/96 (113) 99 11/25/18 12:00 Room Air 11/25/18 12:00 98.6 80 14 151/78 (102) 96 11/25/18 11:36 108 Intake and Output 11/25/18 11/26/18 19:00 07:00 Intake Total 1355 ml 1010 ml Output Total 3240 ml 3050 ml Balance -1885 ml -2040 ml Intake Oral 300 ml 360 ml IV Total 1055 ml 650 ml Output Urine Total 1750 ml 50 ml Other 1490 ml 3000 ml # Bowel Movements 2 Laboratory Tests 11/25/18 11:38: Stool Occult Blood Negative 11/26/18 03:30: White Blood Count 6.9, Red Blood Count 3.30L, Hemoglobin 8.9L, Hematocrit 27.5L , Mean Corpuscular Volume 83, Mean Corpuscular Hemoglobin 27.1, Mean Corpuscular Hemoglobin Concent 32.6, Red Cell Distribution Width 12.5, Platelet Count 219, Mean Platelet Volume 6.6, Neutrophils (%) (Auto) 66.4, Lymphocytes (% ) (Auto) 18.5L, Monocytes (%) (Auto) 8.4, Eosinophils (%) (Auto) 6.2H, Basophils (%) (Auto) 0.5, Sodium Level 141, Potassium Level 4.2, Chloride Level 104, Carbon Dioxide Level 27, Anion Gap 10, Blood Urea Nitrogen 70H, Creatinine 4.5H, Estimat Glomerular Filtration Rate 13.2, Glucose Level 135H, Uric Acid 9.9H, Calcium Level 8.9, Phosphorus Level 6.7H, Magnesium Level 1.8, Total Bilirubin 0.2, Gamma Glutamyl Transpeptidase 34, Aspartate Amino Transf (AST/ SGOT) 15, Alanine Aminotransferase (ALT/SGPT) 25, Alkaline Phosphatase 95, Total Creatine Kinase 19L, C-Reactive Protein, Quantitative 18.8H, Pro-B-Type Natriuretic Peptide 1928H, Total Protein 6.8, Albumin 2.2L, Globulin 4.6, Albumin/Globulin Ratio 0.5L Height (Feet): 5 Height (Inches): 7.00 Weight (Pounds): 214 General Appearance: alert EENT: normal ENT inspection Neck: supple Cardiovascular: normal rate Respiratory/Chest: decreased breath sounds Abdomen: normal bowel sounds, non tender, soft Extremities: non-tender Fish Suero MD November 26, 2018 10:26
[2018-11-26] MEDS: HYDROmorphone 1mg/ml Carpuject IVP PRN ×3 (10:30→20:47)
--- NOTE | 2018-11-26 10:32 | Pulmonology Progress Note ---
Assessment/Plan Problems: (1) Hyperkalemia (2) ATN (acute tubular necrosis) (3) myofibroblastoma (4) Retroperitoneal fibrosis Assessment/Plan IV fluids nephrostomy done, K better check electrolytes symptomatic treatment. dvt prophylaxis. Subjective ROS Limited/Unobtainable: No Constitutional: Reports: no symptoms HEENT: Repors: no symptoms Respiratory: Reports: no symptoms Cardiovascular: Reports: no symptoms Allergies: Coded Allergies: No Known Allergies (Unverified , 11/23/18) Objective Last 24 Hour Vital Signs Date Time Temp Pulse Resp B/P (MAP) Pulse Ox O2 Delivery O2 Flow Rate FiO2 11/26/18 10:12 Room Air 11/26/18 09:00 98.3 77 21 138/78 (98) 96 11/26/18 08:00 89 11/26/18 08:00 Room Air 11/26/18 04:00 Room Air 11/26/18 04:00 79 11/26/18 04:00 98.8 79 16 130/72 (91) 98 11/26/18 01:10 98.9 11/26/18 00:00 Room Air 11/26/18 00:00 100.4 85 18 126/74 (91) 98 11/26/18 00:00 85 11/25/18 20:55 97.6 11/25/18 20:00 99.0 81 16 138/79 (98) 95 11/25/18 20:00 Room Air 11/25/18 16:49 80 11/25/18 16:00 Room Air 11/25/18 15:27 97.6 80 16 95 Nasal Cannula 3.0 86 98 11/25/18 15:25 98.0 79 20 150/82 95 Room Air 11/25/18 15:10 75 20 153/83 96 Room Air 11/25/18 15:05 78 18 153/85 96 Room Air 11/25/18 15:00 97.9 78 19 159/88 96 Room Air 11/25/18 14:50 83 16 155/85 (108) 99 11/25/18 14:40 78 16 160/88 (112) 100 11/25/18 14:30 97.3 83 16 153/94 (113) 99 11/25/18 14:25 86 16 165/94 (117) 99 11/25/18 14:20 87 16 156/96 (116) 99 11/25/18 14:15 88 18 153/94 (113) 99 11/25/18 14:10 88 16 160/94 (116) 100 11/25/18 14:05 88 18 164/91 (115) 100 11/25/18 14:00 85 18 159/95 (116) 99 11/25/18 13:55 89 18 155/93 (113) 100 11/25/18 13:50 97.6 97 18 149/96 (113) 99 11/25/18 12:00 Room Air 11/25/18 12:00 98.6 80 14 151/78 (102) 96 11/25/18 11:36 108 Intake and Output 11/25/18 11/26/18 19:00 07:00 Intake Total 1355 ml 1010 ml Output Total 3240 ml 3050 ml Balance -1885 ml -2040 ml Intake Oral 300 ml 360 ml IV Total 1055 ml 650 ml Output Urine Total 1750 ml 50 ml Other 1490 ml 3000 ml # Bowel Movements 2 General Appearance: WD/WN HEENT: normocephalic, anicteric Respiratory/Chest: chest wall non-tender, lungs clear Cardiovascular: normal peripheral pulses, normal rate, regular rhythm Abdomen: normal bowel sounds, soft, non tender Extremities: no cyanosis, no clubbing 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, abnormal gait Lymphatic: no neck adenopathy Laboratory Tests 11/25/18 11:38: Stool Occult Blood Negative 11/26/18 03:30: White Blood Count 6.9, Red Blood Count 3.30L, Hemoglobin 8.9L, Hematocrit 27.5L , Mean Corpuscular Volume 83, Mean Corpuscular Hemoglobin 27.1, Mean Corpuscular Hemoglobin Concent 32.6, Red Cell Distribution Width 12.5, Platelet Count 219, Mean Platelet Volume 6.6, Neutrophils (%) (Auto) 66.4, Lymphocytes (% ) (Auto) 18.5L, Monocytes (%) (Auto) 8.4, Eosinophils (%) (Auto) 6.2H, Basophils (%) (Auto) 0.5, Sodium Level 141, Potassium Level 4.2, Chloride Level 104, Carbon Dioxide Level 27, Anion Gap 10, Blood Urea Nitrogen 70H, Creatinine 4.5H, Estimat Glomerular Filtration Rate 13.2, Glucose Level 135H, Uric Acid 9.9H, Calcium Level 8.9, Phosphorus Level 6.7H, Magnesium Level 1.8, Total Bilirubin 0.2, Gamma Glutamyl Transpeptidase 34, Aspartate Amino Transf (AST/ SGOT) 15, Alanine Aminotransferase (ALT/SGPT) 25, Alkaline Phosphatase 95, Total Creatine Kinase 19L, C-Reactive Protein, Quantitative 18.8H, Pro-B-Type Natriuretic Peptide 1928H, Total Protein 6.8, Albumin 2.2L, Globulin 4.6, Albumin/Globulin Ratio 0.5L Current Medications Medications (Trade) Dose Ordered Sig/Sp Route PRN Reason Start Time Stop Time Status Last Admin Dose Admin Acetaminophen (Tylenol) 650 mg Q4H PRN ORAL fever (Temp>100.5F) 11/24/18 10:30 12/23/18 22:29 11/26/18 00:40 Ceftriaxone Sodium 1 gm/ Dextrose 55 ml @ 110 mls/hr Q24H IVPB 11/24/18 18:00 12/01/18 17:59 11/25/18 18:24 Dextrose (Dextrose 50%) 25 ml Q30M PRN IV Hypoglycemia 11/24/18 10:30 12/23/18 22:29 Docusate Sodium (Colace) 100 mg THREE TIMES A DAY ORAL 11/24/18 13:00 12/24/18 12:59 11/26/18 09:24 Heparin Sodium (Porcine) (Heparin 5000 units/ml) 5,000 units EVERY 12 HOURS SUBQ 11/24/18 21:00 12/24/18 08:59 11/26/18 09:26 Hydromorphone HCl (Dilaudid) 1 mg Q4H PRN IVP For Pain 11/24/18 12:00 12/01/18 11:59 11/25/18 20:25 Insulin Aspart (NovoLOG) BEFORE MEALS AND HS SUBQ 11/24/18 21:00 12/24/18 20:59 11/25/18 20:25 Insulin Detemir (Levemir) 22 units BEDTIME SUBQ 11/24/18 21:00 12/24/18 20:59 11/25/18 20:24 Metoclopramide HCl (Reglan) 10 mg Q6H PRN IVP Nausea & Vomiting 11/24/18 12:00 12/24/18 11:59 Metoclopramide HCl (Reglan) 10 mg Q8H PRN IVP Nausea & Vomiting 11/24/18 18:00 12/24/18 17:59 Nitroglycerin (Ntg) 0.4 mg Q5M X 3 DOSES PRN SL Prn Chest Pain 11/24/18 10:30 12/23/18 22:29 Pantoprazole (Protonix) 40 mg DAILY ORAL 11/26/18 09:00 12/26/18 08:59 11/26/18 09:24 Polyethylene Glycol (Miralax) 17 gm HSPRN PRN ORAL Constipation 11/24/18 21:00 12/23/18 20:59 Sevelamer Carbonate (Renvela) 1,600 mg THREE TIMES A DAY ORAL 11/25/18 09:00 12/25/18 08:59 11/26/18 09:25 Sodium Bicarbonate 50 ml/ Sodium Chloride 1,050 ml @ 100 mls/hr [id number] IV 11/24/18 12:30 12/24/18 12:29 11/26/18 05:30 Sodium Citrate (Bicitra) 30 ml TID ORAL 11/25/18 18:00 12/24/18 11:59 11/26/18 09:24 Tamsulosin HCl (Flomax) 0.4 mg BEDTIME ORAL 11/24/18 21:00 12/24/18 20:59 11/25/18 20:22 Temazepam (Restoril) 15 mg HSPRN PRN ORAL Insomnia 11/24/18 21:00 11/30/18 20:59 Roberto Caballero MD November 26, 2018 10:32
--- NOTE | 2018-11-26 10:40 | NUR ---
*-* INSURANCE *-* UPDATED CLINICALS AND REVIEWS HAVE BEEN FAXED TO: NOEM[employer] BETTS:AR[employer] [phone]
[2018-11-26] MEDS ORDERED: Dextrose 50% 25ml Syringe IV PRN (11:30)
[2018-11-26] MEDS ORDERED: Nitroglycerin Subl 0.4mg tab SL PRN (11:30)
--- NOTE | 2018-11-26 11:45 | NUR ---
TRANSFER TO FLOOR: Patient transferred to [facility], per dr catherine order. Report given to ruben avalos. Belongings and medications given to ruben avalos. Family and or S/O informed of transfer.
--- NOTE | 2018-11-26 11:58 | NUR ---
NURSE NOTES: pT RECEIVED FROM 2 w accompanied by daughter. Pt is a Citizen Of [place] speaker. Stable condition. No complaints of pain. Bilateral pulses to pedal palpable. Strength even to lower extremities
[2018-11-26 12:00] VITALS: BP 144/81
[2018-11-26] MEDS ORDERED: Metoclopramide 10mg/2ml Inj IVP PRN ×2 (12:00→18:00)
[2018-11-26] MEDS ORDERED: Sodium Citrate 30ml ORAL SCH (13:00)
--- NOTE | 2018-11-26 13:37 | Nephrology Progress Note ---
Assessment/Plan Problem List: (1) Hyperkalemia (2) ATN (acute tubular necrosis) (3) CKD (chronic kidney disease) stage 5, GFR less than 15 ml/min (4) Retroperitoneal mass (5) Bilateral hydronephrosis Assessment Renal failure, Hyperkalemia long h/o DM retroperitoneal mass, bilateral moderate hydro, nature of mass myofibroma Anemia Plan Uro eval appreciated- due for Nephrostomy 11/25 now has 2 nephrostomy working well discussed with daughter in detail DC saxena Flomax med surg no HD needed now JES and CT results noted Subjective ROS Limited/Unobtainable: No Constitutional: Reports: malaise Objective Objective Last 24 Hour Vital Signs Date Time Temp Pulse Resp B/P (MAP) Pulse Ox O2 Delivery O2 Flow Rate FiO2 11/26/18 12:00 Room Air 11/26/18 12:00 98.8 76 20 144/81 (102) 11/26/18 10:12 Room Air 11/26/18 09:00 98.3 77 21 138/78 (98) 96 11/26/18 08:00 89 11/26/18 08:00 Room Air 11/26/18 04:00 Room Air 11/26/18 04:00 79 11/26/18 04:00 98.8 79 16 130/72 (91) 98 11/26/18 01:10 98.9 11/26/18 00:00 Room Air 11/26/18 00:00 100.4 85 18 126/74 (91) 98 11/26/18 00:00 85 11/25/18 20:55 97.6 11/25/18 20:00 99.0 81 16 138/79 (98) 95 11/25/18 20:00 Room Air 11/25/18 16:49 80 11/25/18 16:00 Room Air 11/25/18 15:27 97.6 80 16 95 Nasal Cannula 3.0 86 98 11/25/18 15:25 98.0 79 20 150/82 95 Room Air 11/25/18 15:10 75 20 153/83 96 Room Air 11/25/18 15:05 78 18 153/85 96 Room Air 11/25/18 15:00 97.9 78 19 159/88 96 Room Air 11/25/18 14:50 83 16 155/85 (108) 99 11/25/18 14:40 78 16 160/88 (112) 100 11/25/18 14:30 97.3 83 16 153/94 (113) 99 11/25/18 14:25 86 16 165/94 (117) 99 11/25/18 14:20 87 16 156/96 (116) 99 11/25/18 14:15 88 18 153/94 (113) 99 11/25/18 14:10 88 16 160/94 (116) 100 11/25/18 14:05 88 18 164/91 (115) 100 11/25/18 14:00 85 18 159/95 (116) 99 11/25/18 13:55 89 18 155/93 (113) 100 11/25/18 13:50 97.6 97 18 149/96 (113) 99 Intake and Output 11/25/18 11/26/18 19:00 07:00 Intake Total 1355 ml 1010 ml Output Total 3240 ml 3050 ml Balance -1885 ml -2040 ml Intake Oral 300 ml 360 ml IV Total 1055 ml 650 ml Output Urine Total 1750 ml 50 ml Other 1490 ml 3000 ml # Bowel Movements 2 Laboratory Tests 11/26/18 03:30: White Blood Count 6.9, Red Blood Count 3.30L, Hemoglobin 8.9L, Hematocrit 27.5L , Mean Corpuscular Volume 83, Mean Corpuscular Hemoglobin 27.1, Mean Corpuscular Hemoglobin Concent 32.6, Red Cell Distribution Width 12.5, Platelet Count 219, Mean Platelet Volume 6.6, Neutrophils (%) (Auto) 66.4, Lymphocytes (% ) (Auto) 18.5L, Monocytes (%) (Auto) 8.4, Eosinophils (%) (Auto) 6.2H, Basophils (%) (Auto) 0.5, Sodium Level 141, Potassium Level 4.2, Chloride Level 104, Carbon Dioxide Level 27, Anion Gap 10, Blood Urea Nitrogen 70H, Creatinine 4.5H, Estimat Glomerular Filtration Rate 13.2, Glucose Level 135H, Uric Acid 9.9H, Calcium Level 8.9, Phosphorus Level 6.7H, Magnesium Level 1.8, Total Bilirubin 0.2, Gamma Glutamyl Transpeptidase 34, Aspartate Amino Transf (AST/ SGOT) 15, Alanine Aminotransferase (ALT/SGPT) 25, Alkaline Phosphatase 95, Total Creatine Kinase 19L, C-Reactive Protein, Quantitative 18.8H, Pro-B-Type Natriuretic Peptide 1928H, Total Protein 6.8, Albumin 2.2L, Globulin 4.6, Albumin/Globulin Ratio 0.5L Height (Feet): 5 Height (Inches): 7.00 Weight (Pounds): 214 General Appearance: no apparent distress Respiratory/Chest: decreased breath sounds Abdomen: soft, other - BILATERAL NEPHROSTOMY Gavino Garcia MD November 26, 2018 13:37
--- NOTE | 2018-11-26 13:58 | General Progress Note ---
Assessment/Plan Problem List: (1) Dehydration ICD Codes: E86.0 - Dehydration SNOMED: 26463858 (2) myofibroblastoma (3) urinary stent (4) Hyperkalemia ICD Codes: E87.5 - Hyperkalemia SNOMED: 15006518 (5) Renal failure ICD Codes: N19 - Unspecified kidney failure SNOMED: 23041072 Status: stable, progressing, unchanged Assessment/Plan: renal uro f/u pain control cbc bmp am dc plan Subjective Constitutional: Reports: weakness Allergies: Coded Allergies: No Known Allergies (Unverified , 11/23/18) All Systems: reviewed and negative except above Subjective sleepy calm Objective Last 24 Hour Vital Signs Date Time Temp Pulse Resp B/P (MAP) Pulse Ox O2 Delivery O2 Flow Rate FiO2 11/26/18 12:00 Room Air 11/26/18 12:00 98.8 76 20 144/81 (102) 11/26/18 10:12 Room Air 11/26/18 09:00 98.3 77 21 138/78 (98) 96 11/26/18 08:00 89 11/26/18 08:00 Room Air 11/26/18 04:00 Room Air 11/26/18 04:00 79 11/26/18 04:00 98.8 79 16 130/72 (91) 98 11/26/18 01:10 98.9 11/26/18 00:00 Room Air 11/26/18 00:00 100.4 85 18 126/74 (91) 98 11/26/18 00:00 85 11/25/18 20:55 97.6 11/25/18 20:00 99.0 81 16 138/79 (98) 95 11/25/18 20:00 Room Air 11/25/18 16:49 80 11/25/18 16:00 Room Air 11/25/18 15:27 97.6 80 16 95 Nasal Cannula 3.0 86 98 11/25/18 15:25 98.0 79 20 150/82 95 Room Air 11/25/18 15:10 75 20 153/83 96 Room Air 11/25/18 15:05 78 18 153/85 96 Room Air 11/25/18 15:00 97.9 78 19 159/88 96 Room Air 11/25/18 14:50 83 16 155/85 (108) 99 11/25/18 14:40 78 16 160/88 (112) 100 11/25/18 14:30 97.3 83 16 153/94 (113) 99 11/25/18 14:25 86 16 165/94 (117) 99 11/25/18 14:20 87 16 156/96 (116) 99 11/25/18 14:15 88 18 153/94 (113) 99 11/25/18 14:10 88 16 160/94 (116) 100 11/25/18 14:05 88 18 164/91 (115) 100 11/25/18 14:00 85 18 159/95 (116) 99 Intake and Output 11/25/18 11/26/18 19:00 07:00 Intake Total 1355 ml 1010 ml Output Total 3240 ml 3050 ml Balance -1885 ml -2040 ml Intake Oral 300 ml 360 ml IV Total 1055 ml 650 ml Output Urine Total 1750 ml 50 ml Other 1490 ml 3000 ml # Bowel Movements 2 Laboratory Tests 11/26/18 03:30: White Blood Count 6.9, Red Blood Count 3.30L, Hemoglobin 8.9L, Hematocrit 27.5L , Mean Corpuscular Volume 83, Mean Corpuscular Hemoglobin 27.1, Mean Corpuscular Hemoglobin Concent 32.6, Red Cell Distribution Width 12.5, Platelet Count 219, Mean Platelet Volume 6.6, Neutrophils (%) (Auto) 66.4, Lymphocytes (% ) (Auto) 18.5L, Monocytes (%) (Auto) 8.4, Eosinophils (%) (Auto) 6.2H, Basophils (%) (Auto) 0.5, Sodium Level 141, Potassium Level 4.2, Chloride Level 104, Carbon Dioxide Level 27, Anion Gap 10, Blood Urea Nitrogen 70H, Creatinine 4.5H, Estimat Glomerular Filtration Rate 13.2, Glucose Level 135H, Uric Acid 9.9H, Calcium Level 8.9, Phosphorus Level 6.7H, Magnesium Level 1.8, Total Bilirubin 0.2, Gamma Glutamyl Transpeptidase 34, Aspartate Amino Transf (AST/ SGOT) 15, Alanine Aminotransferase (ALT/SGPT) 25, Alkaline Phosphatase 95, Total Creatine Kinase 19L, C-Reactive Protein, Quantitative 18.8H, Pro-B-Type Natriuretic Peptide 1928H, Total Protein 6.8, Albumin 2.2L, Globulin 4.6, Albumin/Globulin Ratio 0.5L Height (Feet): 5 Height (Inches): 7.00 Weight (Pounds): 214 General Appearance: lethargic EENT: normal ENT inspection Neck: normal alignment Cardiovascular: normal peripheral pulses, normal rate, regular rhythm Respiratory/Chest: chest wall non-tender, lungs clear, normal breath sounds Abdomen: normal bowel sounds, non tender, soft Extremities: normal inspection Edema: no edema noted Arm (L), no edema noted Arm (R), no edema noted Leg (L), no edema noted Leg (R), no edema noted Pedal (L), no edema noted Pedal (R), no edema noted Generalized Neurologic: motor weakness Skin: normal pigmentation, warm/dry Gopal Tracy DO November 26, 2018 13:58
--- NOTE | 2018-11-26 15:15 | Infectious Diseases Prog Note ---
Assessment/Plan Assessment/Plan ASSESSMENT: The patient is a 63-year-old male with, Abdominal pain (due to a cancerous process) Afebrile. Normal white blood cells. No evidence of intraabdominal infectious process or urinary tract infection. 11/25 SP Bl Nephrostomy tube today Myofibroblastoma. History of renal insufficiency. Status post ureteral stent placement. Diabetes PLAN: on IV Rocephin d# 3 ( november soon) monitor Cx ( Bl,Ur) follow GI and Nephrology recommendations. Monitor CBC. Monitor BMP Subjective Allergies: Coded Allergies: No Known Allergies (Unverified , 11/23/18) Subjective low grade fever x 1 Objective Vital Signs Last 24 Hour Vital Signs Date Time Temp Pulse Resp B/P (MAP) Pulse Ox O2 Delivery O2 Flow Rate FiO2 11/26/18 12:00 Room Air 11/26/18 12:00 98.8 76 20 144/81 (102) 11/26/18 10:12 Room Air 11/26/18 09:00 98.3 77 21 138/78 (98) 96 11/26/18 08:00 89 11/26/18 08:00 Room Air 11/26/18 04:00 Room Air 11/26/18 04:00 79 11/26/18 04:00 98.8 79 16 130/72 (91) 98 11/26/18 01:10 98.9 11/26/18 00:00 Room Air 11/26/18 00:00 100.4 85 18 126/74 (91) 98 11/26/18 00:00 85 11/25/18 20:55 97.6 11/25/18 20:00 99.0 81 16 138/79 (98) 95 11/25/18 20:00 Room Air 11/25/18 16:49 80 11/25/18 16:00 Room Air 11/25/18 15:27 97.6 80 16 95 Nasal Cannula 3.0 86 98 11/25/18 15:25 98.0 79 20 150/82 95 Room Air Height (Feet): 5 Height (Inches): 7.00 Weight (Pounds): 214 HEENT: anicteric Respiratory/Chest: normal breath sounds Cardiovascular: regular rhythm Abdomen: no organomegaly Laboratory Tests Test 11/26/18 03:30 White Blood Count 6.9 K/UL (4.8-10.8) Red Blood Count 3.30 M/UL (4.70-6.10) L Hemoglobin 8.9 G/DL (14.2-18.0) L Hematocrit 27.5 % (42.0-52.0) L Mean Corpuscular Volume 83 FL (80-99) Mean Corpuscular Hemoglobin 27.1 PG (27.0-31.0) Mean Corpuscular Hemoglobin Concent 32.6 G/DL (32.0-36.0) Red Cell Distribution Width 12.5 % (11.6-14.8) Platelet Count 219 K/UL (150-450) Mean Platelet Volume 6.6 FL (6.5-10.1) Neutrophils (%) (Auto) 66.4 % (45.0-75.0) Lymphocytes (%) (Auto) 18.5 % (20.0-45.0) L Monocytes (%) (Auto) 8.4 % (1.0-10.0) Eosinophils (%) (Auto) 6.2 % (0.0-3.0) H Basophils (%) (Auto) 0.5 % (0.0-2.0) Sodium Level 141 MMOL/L (136-145) Potassium Level 4.2 MMOL/L (3.5-5.1) Chloride Level 104 MMOL/L (98-107) Carbon Dioxide Level 27 MMOL/L (21-32) Anion Gap 10 mmol/L (5-15) Blood Urea Nitrogen 70 mg/dL (7-18) H Creatinine 4.5 MG/DL (0.55-1.30) H Estimat Glomerular Filtration Rate 13.2 mL/min (>60) Glucose Level 135 MG/DL (74-106) H Uric Acid 9.9 MG/DL (2.6-7.2) H Calcium Level 8.9 MG/DL (8.5-10.1) Phosphorus Level 6.7 MG/DL (2.5-4.9) H Magnesium Level 1.8 MG/DL (1.8-2.4) Total Bilirubin 0.2 MG/DL (0.2-1.0) Gamma Glutamyl Transpeptidase 34 U/L (5-85) Aspartate Amino Transf (AST/SGOT) 15 U/L (15-37) Alanine Aminotransferase (ALT/SGPT) 25 U/L (12-78) Alkaline Phosphatase 95 U/L (46-116) Total Creatine Kinase 19 U/L (26-308) L C-Reactive Protein, Quantitative 18.8 mg/dL (0.00-0.90) H Pro-B-Type Natriuretic Peptide 1928 pg/mL (0-125) H Total Protein 6.8 G/DL (6.4-8.2) Albumin 2.2 G/DL (3.4-5.0) L Globulin 4.6 g/dL Albumin/Globulin Ratio 0.5 (1.0-2.7) L Current Medications Medications (Trade) Dose Ordered Sig/Sp Route PRN Reason Start Time Stop Time Status Last Admin Dose Admin Acetaminophen (Tylenol) 650 mg Q4H PRN ORAL fever (Temp>100.5F) 11/26/18 12:00 12/23/18 11:59 Ceftriaxone Sodium 1 gm/ Dextrose 55 ml @ 110 mls/hr Q24H IVPB 11/26/18 18:00 12/01/18 17:59 Dextrose (Dextrose 50%) 25 ml Q30M PRN IV hypoglycemia 11/26/18 11:30 12/26/18 11:29 Dextrose (Dextrose 50%) 50 ml Q30M PRN IV hypoglycemia 11/26/18 11:30 12/26/18 11:29 Docusate Sodium (Colace) 100 mg THREE TIMES A DAY ORAL 11/26/18 13:00 12/24/18 12:59 11/26/18 13:06 Heparin Sodium (Porcine) (Heparin 5000 units/ml) 5,000 units EVERY 12 HOURS SUBQ 11/26/18 21:00 12/24/18 08:59 Hydromorphone HCl (Dilaudid) 1 mg Q4H PRN IVP For Pain 11/26/18 12:00 12/01/18 11:59 Insulin Aspart (NovoLOG) BEFORE MEALS AND HS SUBQ 11/26/18 16:30 12/24/18 16:29 Insulin Detemir (Levemir) 22 units BEDTIME SUBQ 11/26/18 21:00 12/24/18 20:59 Metoclopramide HCl (Reglan) 10 mg Q6H PRN IVP Nausea & Vomiting 11/26/18 12:00 12/24/18 11:59 Nitroglycerin (Ntg) 0.4 mg Q5M X 3 DOSES PRN SL Prn Chest Pain 11/26/18 11:30 12/23/18 22:29 Pantoprazole (Protonix) 40 mg DAILY ORAL 11/27/18 09:00 12/26/18 08:59 Polyethylene Glycol (Miralax) 17 gm HSPRN PRN ORAL Constipation 11/26/18 21:00 12/23/18 20:59 Sevelamer Carbonate (Renvela) 1,600 mg THREE TIMES A DAY ORAL 11/26/18 13:00 12/25/18 08:59 11/26/18 13:07 Sodium Chloride 1,000 ml @ 75 mls/hr [id number] IV 11/26/18 13:34 12/26/18 13:33 Tamsulosin HCl (Flomax) 0.4 mg BEDTIME ORAL 11/26/18 21:00 12/24/18 20:59 Temazepam (Restoril) 15 mg HSPRN PRN ORAL Insomnia 11/26/18 21:00 11/30/18 20:59 Gregory Levy MD November 26, 2018 15:15
[2018-11-26] MEDS ORDERED: Sodium Bicarbonate 50 ML in 1/2 NS 1000ml 1,000 ML IV SCH (15:30)
--- NOTE | 2018-11-26 15:37 | NUR ---
RN PLASTICSPSYCHOLOGICAL TESTS [employer]ES [employer]ENT SI:DEHYDRATION. RENAL FAILURE. HYPERKALEMIA VS: BP 144/81, P 89, T 98.9, RR 20, SpO2 96 RBC 3.30, Hgb 8.9, Hct 27.5, BUN 70, Cr 4.5 IS: RENVELA 1,600mg BICITRA 30ml HEPARIN SUBQ NOVOLOG SUBQ SODIUM BICARBONATE 1050ml IV DILAUDID 1mg IVP PROTONIX 40mg 3E MED/SURG STATUS
[2018-11-26 16:00] VITALS: BP 144/77
[2018-11-26] MEDS ORDERED: Tubing IV Secondary IV ONE (16:57)
--- NOTE | 2018-11-26 16:57 | NUR ---
NURSE NOTES: Patient is in bed awake and able to verbalize needs. Patient's daughter is at bedside. Patient is stable and denies pain or SOB at this time. Patient encouraged to use call light for assistance, verbalized understanding. Patient is in good spirits with call light within reach. WIll continue to monitor.
--- NOTE | 2018-11-26 17:46 | NUR ---
NURSE NOTES: Report given to Lashae TOMLIN
[2018-11-26] MEDS ORDERED: cefTRIAXone 1 GM in D5W 55 ML IVPB SCH (18:00)
--- NOTE | 2018-11-26 19:30 | NUR ---
NURSE NOTES: Received report & pt from SADA Pretson. Pt lying in bed, a&ox4, [place] speaking, in room air. No s/s of acute distress & no c/o pain at this time. B/L nephrostomies noted to gravity drainage. IV site intact with IVF running as ordered. Bed in lowest position, call light within reach. Will continue to monitor.
[2018-11-26 20:00] VITALS: BP 145/73
[2018-11-26] MEDS: Tamsulosin 0.4mg cap ORAL SCH (20:46)
[2018-11-26] MEDS: Levemir Flexpen SUBQ SCH (20:52)
[2018-11-26] MEDS ORDERED: Miralax 17gm pkt ORAL PRN (21:00)
[2018-11-27] VITALS: BP 159/80
[2018-11-27 04:00] VITALS: BP 128/72
[2018-11-27] MEDS: NovoLOG Insulin Flexpen SUBQ SCH ×4 (05:57→21:27)
[2018-11-27 07:04] LABS: BASOPHILS % (AUTO) 0.8 % (0.0-2.0); EOSINOPHILS % (AUTO) 6.6 % (0.0-3.0); HEMOGLOBIN 8.8 G/DL (14.2-18.0); LYMPHOCYTES % (AUTO) 14.1 % (20.0-45.0); MEAN CORPUSCULAR VOLUME 84 FL (80-99); MONOCYTES % (AUTO) 8.1 % (1.0-10.0); NEUTROPHILS % (AUTO) 70.5 % (45.0-75.0); PLATELET COUNT 217 K/UL (150-450); RED BLOOD COUNT 3.23 M/UL (4.70-6.10); RED CELL DISTRIBUTION WIDTH 12.1 % (11.6-14.8); WHITE BLOOD COUNT 5.6 K/UL (4.8-10.8)
[2018-11-27 07:09] LABS: ALANINE AMINOTRANSFERASE 28 U/L (12-78); ALBUMIN 2.4 G/DL (3.4-5.0); ALBUMIN/GLOBULIN RATIO 0.5 (1.0-2.7); ALKALINE PHOSPHATASE 99 U/L (46-116); ANION GAP 5 mmol/L (5-15); ASPARTATE AMINO TRANSFERASE 20 U/L (15-37); BILIRUBIN,TOTAL 0.2 MG/DL (0.2-1.0); BLOOD UREA NITROGEN 45 mg/dL (7-18); CALCIUM 8.6 MG/DL (8.5-10.1); CARBON DIOXIDE 34 MMOL/L (21-32); CHLORIDE 102 MMOL/L (98-107); CREATININE 2.6 MG/DL (0.55-1.30); PHOSPHORUS 4.1 MG/DL (2.5-4.9); POTASSIUM 3.5 MMOL/L (3.5-5.1); SODIUM 141 MMOL/L (136-145)
--- NOTE | 2018-11-27 07:20 | NUR ---
NURSE NOTES: Report received from outgoing nurse, rounds made. Patient resting in supine position in bed. Alert, oriented x4 calm. No SOB on RA, pain, or NV at this time. Tolerated renal breakfast well. IVF infusing to LAC as ordered, without difficulty. Bilateral nephrostomy tubes in place, drains to gravity. Call light in reach, bed in lowest position, will continue to monitor.
--- NOTE | 2018-11-27 07:30 | NUR ---
HAND-OFF: Report given to SADA Bateman. Pt in stable condition. Rounds done.
[2018-11-27 08:00] VITALS: BP 140/79
--- NOTE | 2018-11-27 08:44 | NUR ---
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 RENAL FAILURE S/P NEPHROSTOMY TUBE 11/25 VS: BP 159/80, P 80, T 99.4, RR 20, SpO2 94 RBC 3.23, H&H 8.8/27.0, BUN 45, CR 2.6 IS:MAGNESIUM SULFATE 100ml IVPB HEPARIN SUBQ CEFTRIAXONE 55ml IVPB NS x1L IV NOVOLOG SUBQ MED/SURG STATUS
[2018-11-27] MEDS: Docusate 100mg cap ORAL SCH ×3 (08:55→17:17)
[2018-11-27] MEDS: Heparin 5000 units/ml inj SUBQ SCH ×2 (08:57→21:28)
--- NOTE | 2018-11-27 09:14 | General Progress Note ---
Assessment/Plan Problem List: (1) Dehydration ICD Codes: E86.0 - Dehydration SNOMED: 42885818 (2) myofibroblastoma (3) urinary stent (4) Hyperkalemia ICD Codes: E87.5 - Hyperkalemia SNOMED: 95550890 (5) Renal failure ICD Codes: N19 - Unspecified kidney failure SNOMED: 11887586 Status: stable, progressing, unchanged Assessment/Plan: renal uro f/u pain control cbc bmp am dc plan w hh Subjective Constitutional: Reports: weakness Allergies: Coded Allergies: No Known Allergies (Unverified , 11/23/18) All Systems: reviewed and negative except above Subjective sleepy calm Objective Last 24 Hour Vital Signs Date Time Temp Pulse Resp B/P (MAP) Pulse Ox O2 Delivery O2 Flow Rate FiO2 11/27/18 04:00 99.1 76 20 128/72 (90) 95 11/27/18 00:00 99.0 80 18 159/80 (106) 95 11/26/18 21:00 Room Air 11/26/18 20:00 99.4 92 20 145/73 (97) 94 11/26/18 16:00 97.7 71 16 144/77 (99) 11/26/18 16:00 Room Air 11/26/18 12:00 Room Air 11/26/18 12:00 98.8 76 20 144/81 (102) 11/26/18 10:12 Room Air Intake and Output 11/26/18 11/27/18 19:00 07:00 Intake Total 200 ml 660 ml Output Total 2800 ml Balance 200 ml -2140 ml Intake Oral 360 ml IV Total 200 ml 300 ml Other 2800 ml # Bowel Movements 2 Laboratory Tests 11/27/18 05:05: White Blood Count 5.6, Red Blood Count 3.23L, Hemoglobin 8.8L, Hematocrit 27.0L , Mean Corpuscular Volume 84, Mean Corpuscular Hemoglobin 27.2, Mean Corpuscular Hemoglobin Concent 32.6, Red Cell Distribution Width 12.1, Platelet Count 217, Mean Platelet Volume 6.2L, Neutrophils (%) (Auto) 70.5, Lymphocytes ( %) (Auto) 14.1L, Monocytes (%) (Auto) 8.1, Eosinophils (%) (Auto) 6.6H, Basophils (%) (Auto) 0.8, Sodium Level 141, Potassium Level 3.5, Chloride Level 102, Carbon Dioxide Level 34H, Anion Gap 5, Blood Urea Nitrogen 45H, Creatinine 2.6H, Estimat Glomerular Filtration Rate 24.9, Glucose Level 123H, Uric Acid 8.4H, Calcium Level 8.6, Phosphorus Level 4.1, Magnesium Level 1.3L, Total Bilirubin 0.2, Aspartate Amino Transf (AST/SGOT) 20, Alanine Aminotransferase ( ALT/SGPT) 28, Alkaline Phosphatase 99, C-Reactive Protein, Quantitative 15.2H, Total Protein 6.9, Albumin 2.4L, Globulin 4.5, Albumin/Globulin Ratio 0.5L Height (Feet): 5 Height (Inches): 7.00 Weight (Pounds): 214 General Appearance: lethargic EENT: normal ENT inspection Neck: normal alignment Cardiovascular: normal peripheral pulses, normal rate, regular rhythm Respiratory/Chest: chest wall non-tender, lungs clear, normal breath sounds Abdomen: normal bowel sounds, non tender, soft Extremities: normal inspection Edema: no edema noted Arm (L), no edema noted Arm (R), no edema noted Leg (L), no edema noted Leg (R), no edema noted Pedal (L), no edema noted Pedal (R), no edema noted Generalized Neurologic: motor weakness Skin: normal pigmentation, warm/dry Gopal Tracy DO November 27, 2018 09:14
--- NOTE | 2018-11-27 10:33 | GI Progress Note ---
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 Suero. Assessment/Plan CT and abd us reviewed fu urology>>>s/p nephrostomy tube placement fu labs pain control pending chemo as out patient The patient was seen and examined at bedside and all new and available data was reviewed in the patients chart. I agree with the above findings, impression and plan. (Patient seen earlier today. Signature stamp does not reflect patient encounter time.). - Fish Suero MD Subjective Gastrointestinal/Abdominal: Reports: no symptoms Objective Last 24 Hour Vital Signs Date Time Temp Pulse Resp B/P (MAP) Pulse Ox O2 Delivery O2 Flow Rate FiO2 11/27/18 08:00 98.3 86 19 140/79 (99) 96 11/27/18 04:00 99.1 76 20 128/72 (90) 95 11/27/18 00:00 99.0 80 18 159/80 (106) 95 11/26/18 21:00 Room Air 11/26/18 20:00 99.4 92 20 145/73 (97) 94 11/26/18 16:00 97.7 71 16 144/77 (99) 11/26/18 16:00 Room Air 11/26/18 12:00 Room Air 11/26/18 12:00 98.8 76 20 144/81 (102) Intake and Output 11/26/18 11/27/18 19:00 07:00 Intake Total 200 ml 660 ml Output Total 2800 ml Balance 200 ml -2140 ml Intake Oral 360 ml IV Total 200 ml 300 ml Other 2800 ml # Bowel Movements 2 Laboratory Tests Test 11/27/18 05:05 White Blood Count 5.6 K/UL (4.8-10.8) Red Blood Count 3.23 M/UL (4.70-6.10) L Hemoglobin 8.8 G/DL (14.2-18.0) L Hematocrit 27.0 % (42.0-52.0) L Mean Corpuscular Volume 84 FL (80-99) Mean Corpuscular Hemoglobin 27.2 PG (27.0-31.0) Mean Corpuscular Hemoglobin Concent 32.6 G/DL (32.0-36.0) Red Cell Distribution Width 12.1 % (11.6-14.8) Platelet Count 217 K/UL (150-450) Mean Platelet Volume 6.2 FL (6.5-10.1) L Neutrophils (%) (Auto) 70.5 % (45.0-75.0) Lymphocytes (%) (Auto) 14.1 % (20.0-45.0) L Monocytes (%) (Auto) 8.1 % (1.0-10.0) Eosinophils (%) (Auto) 6.6 % (0.0-3.0) H Basophils (%) (Auto) 0.8 % (0.0-2.0) Sodium Level 141 MMOL/L (136-145) Potassium Level 3.5 MMOL/L (3.5-5.1) Chloride Level 102 MMOL/L (98-107) Carbon Dioxide Level 34 MMOL/L (21-32) H Anion Gap 5 mmol/L (5-15) Blood Urea Nitrogen 45 mg/dL (7-18) H Creatinine 2.6 MG/DL (0.55-1.30) H Estimat Glomerular Filtration Rate 24.9 mL/min (>60) Glucose Level 123 MG/DL (74-106) H Uric Acid 8.4 MG/DL (2.6-7.2) H Calcium Level 8.6 MG/DL (8.5-10.1) Phosphorus Level 4.1 MG/DL (2.5-4.9) Magnesium Level 1.3 MG/DL (1.8-2.4) L Total Bilirubin 0.2 MG/DL (0.2-1.0) Aspartate Amino Transf (AST/SGOT) 20 U/L (15-37) Alanine Aminotransferase (ALT/SGPT) 28 U/L (12-78) Alkaline Phosphatase 99 U/L (46-116) C-Reactive Protein, Quantitative 15.2 mg/dL (0.00-0.90) H Total Protein 6.9 G/DL (6.4-8.2) Albumin 2.4 G/DL (3.4-5.0) L Globulin 4.5 g/dL Albumin/Globulin Ratio 0.5 (1.0-2.7) L Height (Feet): 5 Height (Inches): 7.00 Weight (Pounds): 214 General Appearance: WD/WN, no apparent distress, alert Cardiovascular: normal rate Respiratory/Chest: normal breath sounds, no respiratory distress Abdominal Exam: normal bowel sounds, non tender, soft Extremities: normal range of motion, non-tender Tortio Burton NP November 27, 2018 10:33
--- NOTE | 2018-11-27 11:19 | NUR ---
*-* INSURANCE *-* UPDATED CLINICALS AND REVIEWS HAVE BEEN FAXED TO: [employer] [phone]
[2018-11-27 12:00] VITALS: BP 149/78
--- NOTE | 2018-11-27 12:55 | Infectious Diseases Prog Note ---
Assessment/Plan Assessment/Plan ASSESSMENT: The patient is a 63-year-old male with, Abdominal pain (due to a cancerous process) low grade fever, post op op Normal white blood cells. No evidence of intraabdominal infectious process or urinary tract infection. Ucx ( Cancelled) NAOMI improving Myofibroblastoma. History of renal insufficiency. Status post ureteral stent placement. Diabetes PLAN: DC IV Rocephin d# 3 monitor Cx ( Bl ) follow GI and Nephrology recommendations. Monitor CBC. Monitor BMP Subjective Allergies: Coded Allergies: No Known Allergies (Unverified , 11/23/18) Subjective post op low grade fever x 1 Objective Vital Signs Last 24 Hour Vital Signs Date Time Temp Pulse Resp B/P (MAP) Pulse Ox O2 Delivery O2 Flow Rate FiO2 11/27/18 08:00 98.3 86 19 140/79 (99) 96 11/27/18 04:00 99.1 76 20 128/72 (90) 95 11/27/18 00:00 99.0 80 18 159/80 (106) 95 11/26/18 21:00 Room Air 11/26/18 20:00 99.4 92 20 145/73 (97) 94 11/26/18 16:00 97.7 71 16 144/77 (99) 11/26/18 16:00 Room Air Height (Feet): 5 Height (Inches): 7.00 Weight (Pounds): 214 HEENT: anicteric Respiratory/Chest: normal breath sounds Cardiovascular: normal peripheral pulses Abdomen: soft, non tender Laboratory Tests Test 11/27/18 05:05 White Blood Count 5.6 K/UL (4.8-10.8) Red Blood Count 3.23 M/UL (4.70-6.10) L Hemoglobin 8.8 G/DL (14.2-18.0) L Hematocrit 27.0 % (42.0-52.0) L Mean Corpuscular Volume 84 FL (80-99) Mean Corpuscular Hemoglobin 27.2 PG (27.0-31.0) Mean Corpuscular Hemoglobin Concent 32.6 G/DL (32.0-36.0) Red Cell Distribution Width 12.1 % (11.6-14.8) Platelet Count 217 K/UL (150-450) Mean Platelet Volume 6.2 FL (6.5-10.1) L Neutrophils (%) (Auto) 70.5 % (45.0-75.0) Lymphocytes (%) (Auto) 14.1 % (20.0-45.0) L Monocytes (%) (Auto) 8.1 % (1.0-10.0) Eosinophils (%) (Auto) 6.6 % (0.0-3.0) H Basophils (%) (Auto) 0.8 % (0.0-2.0) Sodium Level 141 MMOL/L (136-145) Potassium Level 3.5 MMOL/L (3.5-5.1) Chloride Level 102 MMOL/L (98-107) Carbon Dioxide Level 34 MMOL/L (21-32) H Anion Gap 5 mmol/L (5-15) Blood Urea Nitrogen 45 mg/dL (7-18) H Creatinine 2.6 MG/DL (0.55-1.30) H Estimat Glomerular Filtration Rate 24.9 mL/min (>60) Glucose Level 123 MG/DL (74-106) H Uric Acid 8.4 MG/DL (2.6-7.2) H Calcium Level 8.6 MG/DL (8.5-10.1) Phosphorus Level 4.1 MG/DL (2.5-4.9) Magnesium Level 1.3 MG/DL (1.8-2.4) L Total Bilirubin 0.2 MG/DL (0.2-1.0) Aspartate Amino Transf (AST/SGOT) 20 U/L (15-37) Alanine Aminotransferase (ALT/SGPT) 28 U/L (12-78) Alkaline Phosphatase 99 U/L (46-116) C-Reactive Protein, Quantitative 15.2 mg/dL (0.00-0.90) H Total Protein 6.9 G/DL (6.4-8.2) Albumin 2.4 G/DL (3.4-5.0) L Globulin 4.5 g/dL Albumin/Globulin Ratio 0.5 (1.0-2.7) L Current Medications Medications (Trade) Dose Ordered Sig/Sp Route PRN Reason Start Time Stop Time Status Last Admin Dose Admin Acetaminophen (Tylenol) 650 mg Q4H PRN ORAL fever (Temp>100.5F) 11/26/18 12:00 12/23/18 11:59 Ceftriaxone Sodium 1 gm/ Dextrose 55 ml @ 110 mls/hr Q24H IVPB 11/26/18 18:00 12/01/18 17:59 11/26/18 18:07 Dextrose (Dextrose 50%) 25 ml Q30M PRN IV hypoglycemia 11/26/18 11:30 12/26/18 11:29 Dextrose (Dextrose 50%) 50 ml Q30M PRN IV hypoglycemia 11/26/18 11:30 12/26/18 11:29 Docusate Sodium (Colace) 100 mg THREE TIMES A DAY ORAL 11/26/18 13:00 12/24/18 12:59 11/27/18 12:19 Heparin Sodium (Porcine) (Heparin 5000 units/ml) 5,000 units EVERY 12 HOURS SUBQ 11/26/18 21:00 12/24/18 08:59 11/27/18 08:57 Hydromorphone HCl (Dilaudid) 1 mg Q4H PRN IVP For Pain 11/26/18 12:00 12/01/18 11:59 11/26/18 20:47 Insulin Aspart (NovoLOG) BEFORE MEALS AND HS SUBQ 11/26/18 16:30 12/24/18 16:29 11/27/18 12:24 Insulin Detemir (Levemir) 22 units BEDTIME SUBQ 11/26/18 21:00 12/24/18 20:59 11/26/18 20:52 Metoclopramide HCl (Reglan) 10 mg Q6H PRN IVP Nausea & Vomiting 11/26/18 12:00 12/24/18 11:59 Nitroglycerin (Ntg) 0.4 mg Q5M X 3 DOSES PRN SL Prn Chest Pain 11/26/18 11:30 12/23/18 22:29 Pantoprazole (Protonix) 40 mg DAILY ORAL 11/27/18 09:00 12/26/18 08:59 11/27/18 08:55 Polyethylene Glycol (Miralax) 17 gm HSPRN PRN ORAL Constipation 11/26/18 21:00 12/23/18 20:59 Sodium Chloride 1,000 ml @ 75 mls/hr [id number] IV 11/26/18 13:34 12/26/18 13:33 11/27/18 03:07 Tamsulosin HCl (Flomax) 0.4 mg BEDTIME ORAL 11/26/18 21:00 12/24/18 20:59 11/26/18 20:46 Temazepam (Restoril) 15 mg HSPRN PRN ORAL Insomnia 11/26/18 21:00 11/30/18 20:59 Gregory Levy MD November 27, 2018 12:55
--- NOTE | 2018-11-27 13:32 | General Progress Note ---
Progress Note Progress Note Nephrostomy tubes placed 11/25. Doing well AFVSS Urine- clear/ yellow PE- abd soft, NT, ND - no changes Ext WWP Neph tube sites C/D/I Cr decreased sig from approx 7 to 2 range A/P- RPF 2/2 myofibroblastoma Had renal failure despite stents Proximal diversion with neph tubes successful with resolving renal failure Cont neph tubes and stents until RP mass can be addressed/ excised/ shrunk Available prn. Sam Dacosta M.D. November 27, 2018 13:32
--- NOTE | 2018-11-27 14:18 | NUR ---
RD ASSESSMENT & RECOMMENDATIONS SEE CARE ACTIVITY FOR COMPLETE ASSESSMENT DAILY ESTIMATED NEEDS: Needs based on Renal, DM 74.8kg adj 25-35 kcals/kg 9319-3756 total kcals 1-1.5 g protein/kg 75-112 g total protein 25-30 mL/kg 6099-7883 total fluid mLs NUTRITION DIAGNOSIS: Altered nutrition related lab values r/t renal failure d/t urethral obstruction as evidenced by Creat (6.9-> 2.6), elev BUN (45), elev K, phos now wnl, now s/p BL nephrostomies. CURRENT DIET: Now -> [facility] MED PO DIET RECOMMENDATIONS: LOW NA / [facility] MED ADDITIONAL RECOMMENDATIONS: 1) Obtain a standing weight 2) Add Glucerna 1 tetra michelle daily 3) Monitor lytes, need for active renal diet 4) Snacks BID in b/w meals
[2018-11-27 16:00] VITALS: BP 146/69
--- NOTE | 2018-11-27 16:46 | Nephrology Progress Note ---
Assessment/Plan Problem List: (1) Hyperkalemia (2) ATN (acute tubular necrosis) Assessment: resolving (3) CKD (chronic kidney disease) stage 5, GFR less than 15 ml/min (4) Retroperitoneal mass (5) Bilateral hydronephrosis Assessment Renal failure, Hyperkalemia Cr lowering long h/o DM retroperitoneal mass, bilateral moderate hydro, nature of mass myofibroma Anemia Plan Uro eval appreciated- had Nephrostomy 11/25 now has 2 nephrostomy working well discussed with daughter in detail DC saxena Flomax med surg no HD needed now JES and CT results noted Subjective ROS Limited/Unobtainable: No Objective Objective Last 24 Hour Vital Signs Date Time Temp Pulse Resp B/P (MAP) Pulse Ox O2 Delivery O2 Flow Rate FiO2 11/27/18 12:00 98.6 73 18 149/78 (101) 95 11/27/18 09:00 Room Air 11/27/18 08:00 98.3 86 19 140/79 (99) 96 11/27/18 04:00 99.1 76 20 128/72 (90) 95 11/27/18 00:00 99.0 80 18 159/80 (106) 95 11/26/18 21:00 Room Air 11/26/18 20:00 99.4 92 20 145/73 (97) 94 Intake and Output 11/26/18 11/27/18 19:00 07:00 Intake Total 200 ml 660 ml Output Total 2800 ml Balance 200 ml -2140 ml Intake Oral 360 ml IV Total 200 ml 300 ml Other 2800 ml # Bowel Movements 2 Laboratory Tests 11/27/18 05:05: White Blood Count 5.6, Red Blood Count 3.23L, Hemoglobin 8.8L, Hematocrit 27.0L , Mean Corpuscular Volume 84, Mean Corpuscular Hemoglobin 27.2, Mean Corpuscular Hemoglobin Concent 32.6, Red Cell Distribution Width 12.1, Platelet Count 217, Mean Platelet Volume 6.2L, Neutrophils (%) (Auto) 70.5, Lymphocytes ( %) (Auto) 14.1L, Monocytes (%) (Auto) 8.1, Eosinophils (%) (Auto) 6.6H, Basophils (%) (Auto) 0.8, Sodium Level 141, Potassium Level 3.5, Chloride Level 102, Carbon Dioxide Level 34H, Anion Gap 5, Blood Urea Nitrogen 45H, Creatinine 2.6H, Estimat Glomerular Filtration Rate 24.9, Glucose Level 123H, Uric Acid 8.4H, Calcium Level 8.6, Phosphorus Level 4.1, Magnesium Level 1.3L, Total Bilirubin 0.2, Aspartate Amino Transf (AST/SGOT) 20, Alanine Aminotransferase ( ALT/SGPT) 28, Alkaline Phosphatase 99, C-Reactive Protein, Quantitative 15.2H, Total Protein 6.9, Albumin 2.4L, Globulin 4.5, Albumin/Globulin Ratio 0.5L Height (Feet): 5 Height (Inches): 7.00 Weight (Pounds): 214 General Appearance: no apparent distress Cardiovascular: normal rate Respiratory/Chest: lungs clear Abdomen: soft, other - nephrostomies Genitourinary/Rectal: other Objective no change Gavino Garcia MD November 27, 2018 16:46
--- NOTE | 2018-11-27 19:30 | NUR ---
HAND-OFF: Report given to Dre TOMLIN. Outputs: Nephrostomy Tubes: Left: 1425 ml Right: 1200 ml
--- NOTE | 2018-11-27 19:32 | NUR ---
NURSE NOTES: Report taken from SADA Bateman. Patient is awake and in bed, A&Ox4, Japanese speaking. [place] at bedside. No signs of distress on room air. Patient having no complaints of pain. IV site c/d/i and patent, running 1/2NS at 75mls/hr. Bilateral nephrostomy tubes draining light pink fluid, continue to monitor and drain. Surgical sites c/d/i, no further skin issues. Patient is able to ambulate. Bed in lowest position, call light within reach. D/C to home health with [facility] once cleared.
[2018-11-27 20:00] VITALS: BP 146/85
--- NOTE | 2018-11-27 21:00 | NUR ---
NURSE NOTES: patients blood glucose 459. Novolog and Levemir given per order. MD notified, awaiting return call.
[2018-11-27] MEDS: Tamsulosin 0.4mg cap ORAL SCH (21:21)
[2018-11-27] MEDS: Levemir Flexpen SUBQ SCH (21:27)
--- NOTE | 2018-11-27 22:30 | NUR ---
NURSE NOTES: Checked patient glucose stick, 421. Awaiting return call from .
[2018-11-28] VITALS: BP 129/83
[2018-11-28 04:12] VITALS: BP 132/81
[2018-11-28] MEDS: NovoLOG Insulin Flexpen SUBQ SCH ×6 (06:07→21:01)
--- NOTE | 2018-11-28 07:04 | General Progress Note ---
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 Subjective ROS Limited/Unobtainable: Yes Allergies: Coded Allergies: No Known Allergies (Unverified , 11/23/18) Objective Last 24 Hour Vital Signs Date Time Temp Pulse Resp B/P (MAP) Pulse Ox O2 Delivery O2 Flow Rate FiO2 11/28/18 04:12 98.5 74 18 132/81 (98) 96 11/28/18 00:00 98.7 74 16 129/83 (98) 95 11/27/18 21:00 Room Air 11/27/18 20:00 100.4 80 18 146/85 (105) 95 11/27/18 16:00 98.8 68 20 146/69 (94) 96 11/27/18 12:00 98.6 73 18 149/78 (101) 95 11/27/18 09:00 Room Air 11/27/18 08:00 98.3 86 19 140/79 (99) 96 Intake and Output 11/27/18 11/28/18 19:00 07:00 Intake Total 750 ml 675 ml Output Total 2625 ml 2900 ml Balance -1875 ml -2225 ml Intake Oral 300 ml 600 ml IV Total 450 ml 75 ml Other 2625 ml 2900 ml Height (Feet): 5 Height (Inches): 7.00 Weight (Pounds): 214 General Appearance: no apparent distress EENT: normal ENT inspection Neck: supple Cardiovascular: normal rate Respiratory/Chest: decreased breath sounds Abdomen: normal bowel sounds, non tender, soft Extremities: non-tender Fish Suero MD November 28, 2018 07:04
--- NOTE | 2018-11-28 07:34 | NUR ---
HAND-OFF: Report given to SADA Ybarra. Patient is in bed asleep, VS stable. Bilateral drains c/d/i and patent.
[2018-11-28 07:51] LABS: BASOPHILS % (AUTO) 0.8 % (0.0-2.0); EOSINOPHILS % (AUTO) 6.3 % (0.0-3.0); HEMATOCRIT 27.3 % (42.0-52.0); HEMOGLOBIN 9.1 G/DL (14.2-18.0); LYMPHOCYTES % (AUTO) 14.7 % (20.0-45.0); MEAN CORPUSCULAR VOLUME 83 FL (80-99); MONOCYTES % (AUTO) 7.6 % (1.0-10.0); NEUTROPHILS % (AUTO) 70.6 % (45.0-75.0); PLATELET COUNT 243 K/UL (150-450); RED BLOOD COUNT 3.28 M/UL (4.70-6.10); WHITE BLOOD COUNT 5.8 K/UL (4.8-10.8)
[2018-11-28 08:13] LABS: ANION GAP 7 mmol/L (5-15); BLOOD UREA NITROGEN 36 mg/dL (7-18); CALCIUM 8.8 MG/DL (8.5-10.1); CARBON DIOXIDE 30 MMOL/L (21-32); CHLORIDE 102 MMOL/L (98-107); CREATININE 1.9 MG/DL (0.55-1.30); POTASSIUM 3.5 MMOL/L (3.5-5.1); SODIUM 139 MMOL/L (136-145)
[2018-11-28 08:23] LABS: ALANINE AMINOTRANSFERASE 30 U/L (12-78); ALBUMIN 2.5 G/DL (3.4-5.0); ALKALINE PHOSPHATASE 108 U/L (46-116); ASPARTATE AMINO TRANSFERASE 17 U/L (15-37); BILIRUBIN,DIRECT < 0.1 MG/DL (0.0-0.3); BILIRUBIN,TOTAL 0.2 MG/DL (0.2-1.0)
[2018-11-28 08:45] VITALS: BP 142/77
--- NOTE | 2018-11-28 08:45 | General Progress Note ---
Assessment/Plan Problem List: (1) Dehydration ICD Codes: E86.0 - Dehydration SNOMED: 20639757 (2) myofibroblastoma (3) urinary stent (4) Hyperkalemia ICD Codes: E87.5 - Hyperkalemia SNOMED: 65055995 (5) Renal failure ICD Codes: N19 - Unspecified kidney failure SNOMED: 51533103 Status: stable, progressing Assessment/Plan: renal uro f/u pain control cbc bmp am dc plan w hh Subjective Constitutional: Reports: weakness Allergies: Coded Allergies: No Known Allergies (Unverified , 11/23/18) All Systems: reviewed and negative except above Subjective sleepy calm Objective Last 24 Hour Vital Signs Date Time Temp Pulse Resp B/P (MAP) Pulse Ox O2 Delivery O2 Flow Rate FiO2 11/28/18 04:12 98.5 74 18 132/81 (98) 96 11/28/18 00:00 98.7 74 16 129/83 (98) 95 11/27/18 21:00 Room Air 11/27/18 20:00 100.4 80 18 146/85 (105) 95 11/27/18 16:00 98.8 68 20 146/69 (94) 96 11/27/18 12:00 98.6 73 18 149/78 (101) 95 11/27/18 09:00 Room Air Intake and Output 11/27/18 11/28/18 19:00 07:00 Intake Total 750 ml 675 ml Output Total 2625 ml 2900 ml Balance -1875 ml -2225 ml Intake Oral 300 ml 600 ml IV Total 450 ml 75 ml Other 2625 ml 2900 ml Laboratory Tests 11/28/18 07:05: White Blood Count 5.8, Red Blood Count 3.28L, Hemoglobin 9.1L, Hematocrit 27.3L , Mean Corpuscular Volume 83, Mean Corpuscular Hemoglobin 27.7, Mean Corpuscular Hemoglobin Concent 33.2, Red Cell Distribution Width 12.0, Platelet Count 243, Mean Platelet Volume 6.2L, Neutrophils (%) (Auto) 70.6, Lymphocytes ( %) (Auto) 14.7L, Monocytes (%) (Auto) 7.6, Eosinophils (%) (Auto) 6.3H, Basophils (%) (Auto) 0.8, Sodium Level 139, Potassium Level 3.5, Chloride Level 102, Carbon Dioxide Level 30, Anion Gap 7, Blood Urea Nitrogen 36H, Creatinine 1.9H, Estimat Glomerular Filtration Rate 35.8, Glucose Level 176H, Uric Acid 7.3H, Calcium Level 8.8, Phosphorus Level 3.0, Magnesium Level 1.7L, Total Bilirubin 0.2, Direct Bilirubin < 0.1, Aspartate Amino Transf (AST/SGOT) 17, Alanine Aminotransferase (ALT/SGPT) 30, Alkaline Phosphatase 108, Total Protein 6.5, Albumin 2.5L Height (Feet): 5 Height (Inches): 7.00 Weight (Pounds): 214 General Appearance: lethargic EENT: normal ENT inspection Neck: normal alignment Cardiovascular: normal peripheral pulses, normal rate, regular rhythm Respiratory/Chest: chest wall non-tender, lungs clear, normal breath sounds Abdomen: normal bowel sounds, non tender, soft Extremities: normal inspection Edema: no edema noted Arm (L), no edema noted Arm (R), no edema noted Leg (L), no edema noted Leg (R), no edema noted Pedal (L), no edema noted Pedal (R), no edema noted Generalized Neurologic: motor weakness Skin: normal pigmentation, warm/dry Gopal Tracyg DO November 28, 2018 08:45
[2018-11-28] MEDS: Heparin 5000 units/ml inj SUBQ SCH (09:11)
[2018-11-28] MEDS: Docusate 100mg cap ORAL SCH ×3 (09:11→17:36)
[2018-11-28 12:00] VITALS: BP 137/80
[2018-11-28] MEDS ORDERED: Levofloxacin 500mg tab ORAL SCH (12:30)
--- NOTE | 2018-11-28 12:42 | Nephrology Progress Note ---
Assessment/Plan Problem List: (1) Hyperkalemia (2) ATN (acute tubular necrosis) Assessment: resolving (3) CKD (chronic kidney disease) stage 5, GFR less than 15 ml/min (4) Retroperitoneal mass (5) Bilateral hydronephrosis Assessment Renal failure, Hyperkalemia Cr lowering long h/o DM retroperitoneal mass, bilateral moderate hydro, nature of mass myofibroma Anemia Plan Uro eval appreciated- had Nephrostomy 11/25 now has 2 nephrostomy working well discussed with daughter in detail previously JES and CT results noted OK to DC from renal stand point Discussed with RN Subjective ROS Limited/Unobtainable: No Objective Objective Last 24 Hour Vital Signs Date Time Temp Pulse Resp B/P (MAP) Pulse Ox O2 Delivery O2 Flow Rate FiO2 11/28/18 09:00 Room Air 11/28/18 08:45 99.0 81 16 142/77 (98) 96 11/28/18 04:12 98.5 74 18 132/81 (98) 96 11/28/18 00:00 98.7 74 16 129/83 (98) 95 11/27/18 21:00 Room Air 11/27/18 20:00 100.4 80 18 146/85 (105) 95 11/27/18 16:00 98.8 68 20 146/69 (94) 96 Intake and Output 11/27/18 11/28/18 19:00 07:00 Intake Total 750 ml 675 ml Output Total 2625 ml 2900 ml Balance -1875 ml -2225 ml Intake Oral 300 ml 600 ml IV Total 450 ml 75 ml Other 2625 ml 2900 ml Current Medications Medications (Trade) Dose Ordered Sig/Sp Route PRN Reason Start Time Stop Time Status Last Admin Dose Admin Acetaminophen (Tylenol) 650 mg Q4H PRN ORAL fever (Temp>100.5F) 11/26/18 12:00 12/23/18 11:59 Dextrose (Dextrose 50%) 25 ml Q30M PRN IV Hypoglycemia 11/28/18 07:30 12/28/18 07:29 Dextrose (Dextrose 50%) 50 ml Q30M PRN IV Hypoglycemia 11/28/18 07:30 12/28/18 07:29 Docusate Sodium (Colace) 100 mg THREE TIMES A DAY ORAL 11/26/18 13:00 12/24/18 12:59 11/28/18 12:35 Heparin Sodium (Porcine) (Heparin 5000 units/ml) 5,000 units EVERY 12 HOURS SUBQ 11/26/18 21:00 12/24/18 08:59 11/28/18 09:11 Insulin Aspart (NovoLOG) BEFORE MEALS AND HS SUBQ 11/26/18 16:30 12/24/18 16:29 11/28/18 11:34 Insulin Aspart (NovoLOG) 6 units NOVOTIAC SUBQ 11/28/18 11:50 12/28/18 11:49 11/28/18 12:36 Insulin Detemir (Levemir) 24 units BEDTIME SUBQ 11/28/18 21:00 12/24/18 20:59 Levofloxacin (Levaquin) 250 mg DAILY ORAL 11/29/18 09:00 12/06/18 08:59 Levofloxacin (Levaquin) 500 mg ONCE ORAL 11/28/18 12:30 11/28/18 13:30 11/28/18 12:35 Magnesium Sulfate 100 ml @ 100 mls/hr Q1H IVPB 11/28/18 09:30 11/28/18 13:29 11/28/18 12:35 Metoclopramide HCl (Reglan) 10 mg Q6H PRN IVP Nausea & Vomiting 11/26/18 12:00 12/24/18 11:59 Nitroglycerin (Ntg) 0.4 mg Q5M X 3 DOSES PRN SL Prn Chest Pain 11/26/18 11:30 12/23/18 22:29 Pantoprazole (Protonix) 40 mg DAILY ORAL 11/27/18 09:00 12/26/18 08:59 11/28/18 09:11 Polyethylene Glycol (Miralax) 17 gm HSPRN PRN ORAL Constipation 11/26/18 21:00 12/23/18 20:59 Tamsulosin HCl (Flomax) 0.4 mg BEDTIME ORAL 11/26/18 21:00 12/24/18 20:59 11/27/18 21:21 Temazepam (Restoril) 15 mg HSPRN PRN ORAL Insomnia 11/26/18 21:00 11/30/18 20:59 Laboratory Tests 11/28/18 07:05: White Blood Count 5.8, Red Blood Count 3.28L, Hemoglobin 9.1L, Hematocrit 27.3L , Mean Corpuscular Volume 83, Mean Corpuscular Hemoglobin 27.7, Mean Corpuscular Hemoglobin Concent 33.2, Red Cell Distribution Width 12.0, Platelet Count 243, Mean Platelet Volume 6.2L, Neutrophils (%) (Auto) 70.6, Lymphocytes ( %) (Auto) 14.7L, Monocytes (%) (Auto) 7.6, Eosinophils (%) (Auto) 6.3H, Basophils (%) (Auto) 0.8, Sodium Level 139, Potassium Level 3.5, Chloride Level 102, Carbon Dioxide Level 30, Anion Gap 7, Blood Urea Nitrogen 36H, Creatinine 1.9H, Estimat Glomerular Filtration Rate 35.8, Glucose Level 176H, Uric Acid 7.3H, Calcium Level 8.8, Phosphorus Level 3.0, Magnesium Level 1.7L, Total Bilirubin 0.2, Direct Bilirubin < 0.1, Aspartate Amino Transf (AST/SGOT) 17, Alanine Aminotransferase (ALT/SGPT) 30, Alkaline Phosphatase 108, Total Protein 6.5, Albumin 2.5L Height (Feet): 5 Height (Inches): 7.00 Weight (Pounds): 214 General Appearance: no apparent distress Objective no change Gavino Garcia MD November 28, 2018 12:42
--- NOTE | 2018-11-28 13:00 | NUR ---
NURSE NOTES: Urine culture collected and sent to the lab from both side and labeled accordingly.
--- NOTE | 2018-11-28 13:21 | Infectious Diseases Prog Note ---
Assessment/Plan Assessment/Plan ASSESSMENT: The patient is a 63-year-old male with, Abdominal pain (due to a cancerous process) low grade fever at night x 2 , post op , no obvious source Normal white blood cells. No evidence of intraabdominal infectious process or urinary tract infection. NAOMI improving Myofibroblastoma. History of renal insufficiency. Status post ureteral stent placement. Diabetes PLAN: levaquin 500 po ( if afebrile overnight may DC on oral Levaquin x 5 d, Rx in chart) 11/27 Sp IV Rocephin d# 3 follow GI and Nephrology recommendations. Monitor CBC. Monitor BMP Ucx (Cancelled) reordered (each nephrostomy) Blood cx Subjective Allergies: Coded Allergies: No Known Allergies (Unverified , 11/23/18) Subjective last night low grade fever x 1 no cough no pain Objective Vital Signs Last 24 Hour Vital Signs Date Time Temp Pulse Resp B/P (MAP) Pulse Ox O2 Delivery O2 Flow Rate FiO2 11/28/18 09:00 Room Air 11/28/18 08:45 99.0 81 16 142/77 (98) 96 11/28/18 04:12 98.5 74 18 132/81 (98) 96 11/28/18 00:00 98.7 74 16 129/83 (98) 95 11/27/18 21:00 Room Air 11/27/18 20:00 100.4 80 18 146/85 (105) 95 11/27/18 16:00 98.8 68 20 146/69 (94) 96 Height (Feet): 5 Height (Inches): 7.00 Weight (Pounds): 214 HEENT: anicteric Respiratory/Chest: normal breath sounds Cardiovascular: regularly irregular Abdomen: soft, non tender Microbiology Date/Time Source Procedure Growth Status 11/26/18 17:28 Blood Blood Culture - Preliminary NO GROWTH AFTER 24 HOURS Resulted 11/26/18 17:20 Blood Blood Culture - Preliminary NO GROWTH AFTER 24 HOURS Resulted Laboratory Tests Test 11/28/18 07:05 White Blood Count 5.8 K/UL (4.8-10.8) Red Blood Count 3.28 M/UL (4.70-6.10) L Hemoglobin 9.1 G/DL (14.2-18.0) L Hematocrit 27.3 % (42.0-52.0) L Mean Corpuscular Volume 83 FL (80-99) Mean Corpuscular Hemoglobin 27.7 PG (27.0-31.0) Mean Corpuscular Hemoglobin Concent 33.2 G/DL (32.0-36.0) Red Cell Distribution Width 12.0 % (11.6-14.8) Platelet Count 243 K/UL (150-450) Mean Platelet Volume 6.2 FL (6.5-10.1) L Neutrophils (%) (Auto) 70.6 % (45.0-75.0) Lymphocytes (%) (Auto) 14.7 % (20.0-45.0) L Monocytes (%) (Auto) 7.6 % (1.0-10.0) Eosinophils (%) (Auto) 6.3 % (0.0-3.0) H Basophils (%) (Auto) 0.8 % (0.0-2.0) Sodium Level 139 MMOL/L (136-145) Potassium Level 3.5 MMOL/L (3.5-5.1) Chloride Level 102 MMOL/L (98-107) Carbon Dioxide Level 30 MMOL/L (21-32) Anion Gap 7 mmol/L (5-15) Blood Urea Nitrogen 36 mg/dL (7-18) H Creatinine 1.9 MG/DL (0.55-1.30) H Estimat Glomerular Filtration Rate 35.8 mL/min (>60) Glucose Level 176 MG/DL (74-106) H Uric Acid 7.3 MG/DL (2.6-7.2) H Calcium Level 8.8 MG/DL (8.5-10.1) Phosphorus Level 3.0 MG/DL (2.5-4.9) Magnesium Level 1.7 MG/DL (1.8-2.4) L Total Bilirubin 0.2 MG/DL (0.2-1.0) Direct Bilirubin < 0.1 MG/DL (0.0-0.3) Aspartate Amino Transf (AST/SGOT) 17 U/L (15-37) Alanine Aminotransferase (ALT/SGPT) 30 U/L (12-78) Alkaline Phosphatase 108 U/L (46-116) Total Protein 6.5 G/DL (6.4-8.2) Albumin 2.5 G/DL (3.4-5.0) L Current Medications Medications (Trade) Dose Ordered Sig/Sp Route PRN Reason Start Time Stop Time Status Last Admin Dose Admin Acetaminophen (Tylenol) 650 mg Q4H PRN ORAL fever (Temp>100.5F) 11/26/18 12:00 12/23/18 11:59 Dextrose (Dextrose 50%) 25 ml Q30M PRN IV Hypoglycemia 11/28/18 07:30 12/28/18 07:29 Dextrose (Dextrose 50%) 50 ml Q30M PRN IV Hypoglycemia 11/28/18 07:30 12/28/18 07:29 Docusate Sodium (Colace) 100 mg THREE TIMES A DAY ORAL 11/26/18 13:00 12/24/18 12:59 11/28/18 12:35 Insulin Aspart (NovoLOG) BEFORE MEALS AND HS SUBQ 11/26/18 16:30 12/24/18 16:29 11/28/18 11:34 Insulin Aspart (NovoLOG) 6 units NOVOTIAC SUBQ 11/28/18 11:50 12/28/18 11:49 11/28/18 12:36 Insulin Detemir (Levemir) 24 units BEDTIME SUBQ 11/28/18 21:00 12/24/18 20:59 Levofloxacin (Levaquin) 250 mg DAILY ORAL 11/29/18 09:00 12/06/18 08:59 Levofloxacin (Levaquin) 500 mg ONCE ORAL 11/28/18 12:30 11/28/18 13:30 11/28/18 12:35 Magnesium Sulfate 100 ml @ 100 mls/hr Q1H IVPB 11/28/18 09:30 11/28/18 13:29 11/28/18 12:35 Pantoprazole (Protonix) 40 mg DAILY ORAL 11/27/18 09:00 12/26/18 08:59 11/28/18 09:11 Polyethylene Glycol (Miralax) 17 gm HSPRN PRN ORAL Constipation 11/26/18 21:00 12/23/18 20:59 Tamsulosin HCl (Flomax) 0.4 mg BEDTIME ORAL 11/26/18 21:00 12/24/18 20:59 11/27/18 21:21 Temazepam (Restoril) 15 mg HSPRN PRN ORAL Insomnia 11/26/18 21:00 11/30/18 20:59 Gregory Levy MD November 28, 2018 13:21
[2018-11-28] MEDS ORDERED: Tubing IV Secondary IV ONE (14:34)
[2018-11-28] MEDS ORDERED: 1/2 NS 1000ml IV ONE (14:34)
[2018-11-28] MEDS ORDERED: HYDROmorphone 1mg/ml Carpuject IVP PRN (15:15)
[2018-11-28 16:35] VITALS: BP 134/77
--- NOTE | 2018-11-28 19:15 | Consultation ---
DATE OF CONSULTATION: 11/28/2018 ENDOCRINOLOGY CONSULTATION CONSULTING PHYSICIAN: Chin Mojica M.D. REFERRING PHYSICIAN: Gopal Tracy D.O. REASON FOR CONSULTATION: Diabetes management. HISTORY OF PRESENT ILLNESS: This is a 63-year-old male with a history of insulin-dependent diabetes. Patient presented with diffuse abdominal pain. The patient recently was diagnosed with myofibroblastoma. I was called to manage diabetes. PAST MEDICAL HISTORY: 1. Diabetes. 2. Abdominal tumor. 3. Myofibroblastoma. PAST SURGICAL HISTORY: Laparoscopy and recent renal stent placement. MEDICATIONS: Reviewed and reconciled. ALLERGIES TO MEDICATIONS: None. SOCIAL HISTORY: No smoking, alcohol, or drug use. FAMILY HISTORY: Noncontributory. REVIEW OF SYSTEMS: As per history of present illness. PHYSICAL EXAM: VITAL SIGNS: Temperature of 98.5, pulse 74, blood pressure 132/84, and respiratory rate of 18. HEENT: Pupils are equal and reactive to light. Sclerae anicteric. NECK: No jugular venous distention. HEART: Regular. LUNGS: Clear. ABDOMEN: Positive bowel sounds. EXTREMITIES: Positive for edema. LABORATORY VALUES: WBC 5.6, hemoglobin 8.8, hematocrit 27, and platelets of 217,000. Sodium 141, potassium 3.5, chloride 106, bicarb 34, BUN 45, and creatinine 2.6. Calcium of 8.4. DIAGNOSES: 1. Myofibroblastoma recently diagnosed, with retroperitoneal fibrosis. 2. Acute tubular necrosis. 3. Diabetes, out of control. PLAN: 1. Increase Levemir to 24 units at bedtime. 2. Add NovoLog 6 units before each meal, to be held if the patient is not eating. NovoLog sliding scale before meals and at bedtime. 3. Further adjustment according to blood glucose values. 4. I will follow the patient during the hospital stay. Thank you Dr. Tracy for the courtesy of this consultation. Chin Mojica M.D. DR: ANSON JOB#: [id number] CC: CHARLEEN
--- NOTE | 2018-11-28 19:20 | NUR ---
NURSE NOTES: Report taken from SADA Ybarra. Patient is in bed and very fatigues, states that dilaudid makes him very tired. Is A&Ox4. No signs of distress on room air. Having some minimal pain at surgical sites bilaterally, 2/10. IV site c/d/i and patent, no fluid running. Bilat Nephrostomies c/d/i and patent, flowing light pink fluid, continue to drain and monitor output. No skin issues present. Will instruct patient how to empty nephrostomies when not fatigued. Bed in lowest position, call light within reach.
[2018-11-28 20:00] VITALS: BP 142/78
[2018-11-28] MEDS: Tamsulosin 0.4mg cap ORAL SCH (20:55)
[2018-11-28] MEDS ORDERED: Levemir Flexpen SUBQ SCH (21:00)
[2018-11-29] VITALS: BP 144/85
[2018-11-29 04:17] VITALS: BP 142/86
[2018-11-29 05:27] LABS: BASOPHILS % (AUTO) 0.5 % (0.0-2.0); EOSINOPHILS % (AUTO) 6.3 % (0.0-3.0); HEMATOCRIT 29.2 % (42.0-52.0); HEMOGLOBIN 9.6 G/DL (14.2-18.0); LYMPHOCYTES % (AUTO) 18.1 % (20.0-45.0); MEAN CORPUSCULAR VOLUME 83 FL (80-99); MONOCYTES % (AUTO) 8.8 % (1.0-10.0); NEUTROPHILS % (AUTO) 66.3 % (45.0-75.0); PLATELET COUNT 249 K/UL (150-450); RED BLOOD COUNT 3.53 M/UL (4.70-6.10); RED CELL DISTRIBUTION WIDTH 12.3 % (11.6-14.8); WHITE BLOOD COUNT 6.3 K/UL (4.8-10.8)
[2018-11-29] MEDS: NovoLOG Insulin Flexpen SUBQ SCH ×4 (06:27→12:41)
[2018-11-29 06:29] LABS: ANION GAP 8 mmol/L (5-15); BLOOD UREA NITROGEN 28 mg/dL (7-18); CALCIUM 9.2 MG/DL (8.5-10.1); CARBON DIOXIDE 30 MMOL/L (21-32); CHLORIDE 103 MMOL/L (98-107); CREATININE 1.7 MG/DL (0.55-1.30); POTASSIUM 3.5 MMOL/L (3.5-5.1); SODIUM 141 MMOL/L (136-145)
--- NOTE | 2018-11-29 06:29 | NUR ---
NURSE NOTES: Patient had been reporting feeling nausea and light headed. upon finger stick patients blood sugar was 60. Patient was sitting in chair A&Ox4. Gave patient 2 orange juices and will reacess blood sugar.
--- NOTE | 2018-11-29 06:52 | NUR ---
NURSE NOTES: Rechecked patients blood sugar, 88. Will continue to monitor and endorse to next shift.
--- NOTE | 2018-11-29 07:36 | NUR ---
HAND-OFF: Report given to SADA Calvert. Patient is awake in bed, but fatigued. BS within normal limits, VS stable. Endorsed to RN about am blood sugar..
[2018-11-29 08:00] VITALS: BP 153/83
--- NOTE | 2018-11-29 08:00 | NUR ---
NURSE NOTES: Received report from Dre TOMLIN, pt a/a/o x4 laying in bed with no signs of distress or other issues at this time. surgical dressing dry and intact. bilateral nephrostomy drainages draining well yellow urine. IV on the left AC gauge #22 heplock. RN will contact MD to request new RX for pain since pt stated that Dilaudid makes feel "not good". RN will candido on orders as indicated. call light within reach, bed in lowest position. side rale sup. I will f/u as needed.
[2018-11-29] MEDS: Docusate 100mg cap ORAL SCH ×2 (08:20→12:39)
--- NOTE | 2018-11-29 08:35 | General Progress Note ---
Assessment/Plan Problem List: (1) Dehydration ICD Codes: E86.0 - Dehydration SNOMED: 26865941 (2) myofibroblastoma (3) urinary stent (4) Hyperkalemia ICD Codes: E87.5 - Hyperkalemia SNOMED: 23316058 (5) Renal failure ICD Codes: N19 - Unspecified kidney failure SNOMED: 20483714 Status: stable, progressing Assessment/Plan: renal uro f/u pain control cbc bmp am dc plan w hh Subjective Constitutional: Reports: weakness Allergies: Coded Allergies: No Known Allergies (Unverified , 11/23/18) All Systems: reviewed and negative except above Subjective sleepy calm Objective Last 24 Hour Vital Signs Date Time Temp Pulse Resp B/P (MAP) Pulse Ox O2 Delivery O2 Flow Rate FiO2 11/29/18 04:17 98.2 71 18 142/86 (104) 96 11/29/18 00:00 98.2 69 18 144/85 (104) 95 11/28/18 21:00 Room Air 11/28/18 20:00 98.4 66 18 142/78 (99) 96 11/28/18 16:35 99.0 67 17 134/77 (96) 95 11/28/18 16:04 99.0 11/28/18 12:00 98.8 73 16 137/80 (99) 96 11/28/18 09:00 Room Air 11/28/18 08:45 99.0 81 16 142/77 (98) 96 Intake and Output 11/28/18 11/29/18 19:00 07:00 Intake Total 800 ml 500 ml Output Total 1600 ml 2250 ml Balance -800 ml -1750 ml Intake Oral 800 ml 500 ml Output Urine Total 1600 ml Other 2250 ml Laboratory Tests 11/29/18 05:20: White Blood Count 6.3, Red Blood Count 3.53L, Hemoglobin 9.6L, Hematocrit 29.2L , Mean Corpuscular Volume 83, Mean Corpuscular Hemoglobin 27.3, Mean Corpuscular Hemoglobin Concent 32.9, Red Cell Distribution Width 12.3, Platelet Count 249, Mean Platelet Volume 5.9L, Neutrophils (%) (Auto) 66.3, Lymphocytes ( %) (Auto) 18.1L, Monocytes (%) (Auto) 8.8, Eosinophils (%) (Auto) 6.3H, Basophils (%) (Auto) 0.5, Sodium Level 141, Potassium Level 3.5, Chloride Level 103, Carbon Dioxide Level 30, Anion Gap 8, Blood Urea Nitrogen 28H, Creatinine 1.7H, Estimat Glomerular Filtration Rate 40.7, Glucose Level 54#L, Calcium Level 9.2 Height (Feet): 5 Height (Inches): 7.00 Weight (Pounds): 214 General Appearance: lethargic EENT: normal ENT inspection Neck: normal alignment Cardiovascular: normal peripheral pulses, normal rate, regular rhythm Respiratory/Chest: chest wall non-tender, lungs clear, normal breath sounds Abdomen: normal bowel sounds, non tender, soft Extremities: normal inspection Edema: no edema noted Arm (L), no edema noted Arm (R), no edema noted Leg (L), no edema noted Leg (R), no edema noted Pedal (L), no edema noted Pedal (R), no edema noted Generalized Neurologic: motor weakness Skin: normal pigmentation, warm/dry Gopal Tracy DO November 29, 2018 08:35
--- NOTE | 2018-11-29 09:00 | NUR ---
NURSE NOTES: pt walking around the unit with steady gait and the use of FWW. I will f/u as needed.
--- NOTE | 2018-11-29 09:01 | General Progress Note ---
Assessment/Plan Problem List: (1) myofibroblastoma (2) urinary stent (3) Dehydration ICD Codes: E86.0 - Dehydration SNOMED: 18132734 (4) Hyperkalemia ICD Codes: E87.5 - Hyperkalemia SNOMED: 98989752 Status: stable, progressing Assessment/Plan: CT and abd us reviewed fu urology>>>s/p nephrostomy tube placement fu labs pain control pending chemo as out patient improving Data Virtualization Consultant fu nephrology Subjective ROS Limited/Unobtainable: Yes Allergies: Coded Allergies: No Known Allergies (Unverified , 11/23/18) Objective Last 24 Hour Vital Signs Date Time Temp Pulse Resp B/P (MAP) Pulse Ox O2 Delivery O2 Flow Rate FiO2 11/29/18 08:00 98.9 73 18 153/83 (106) 95 11/29/18 04:17 98.2 71 18 142/86 (104) 96 11/29/18 00:00 98.2 69 18 144/85 (104) 95 11/28/18 21:00 Room Air 11/28/18 20:00 98.4 66 18 142/78 (99) 96 11/28/18 16:35 99.0 67 17 134/77 (96) 95 11/28/18 16:04 99.0 11/28/18 12:00 98.8 73 16 137/80 (99) 96 Intake and Output 11/28/18 11/29/18 19:00 07:00 Intake Total 800 ml 500 ml Output Total 1600 ml 2250 ml Balance -800 ml -1750 ml Intake Oral 800 ml 500 ml Output Urine Total 1600 ml Other 2250 ml Laboratory Tests 11/29/18 05:20: White Blood Count 6.3, Red Blood Count 3.53L, Hemoglobin 9.6L, Hematocrit 29.2L , Mean Corpuscular Volume 83, Mean Corpuscular Hemoglobin 27.3, Mean Corpuscular Hemoglobin Concent 32.9, Red Cell Distribution Width 12.3, Platelet Count 249, Mean Platelet Volume 5.9L, Neutrophils (%) (Auto) 66.3, Lymphocytes ( %) (Auto) 18.1L, Monocytes (%) (Auto) 8.8, Eosinophils (%) (Auto) 6.3H, Basophils (%) (Auto) 0.5, Sodium Level 141, Potassium Level 3.5, Chloride Level 103, Carbon Dioxide Level 30, Anion Gap 8, Blood Urea Nitrogen 28H, Creatinine 1.7H, Estimat Glomerular Filtration Rate 40.7, Glucose Level 54#L, Calcium Level 9.2 Height (Feet): 5 Height (Inches): 7.00 Weight (Pounds): 214 General Appearance: no apparent distress EENT: normal ENT inspection Neck: supple Cardiovascular: normal rate Respiratory/Chest: decreased breath sounds Abdomen: normal bowel sounds, non tender, soft Extremities: non-tender Fish Suero MD November 29, 2018 09:01
[2018-11-29 12:00] VITALS: BP 142/81
--- NOTE | 2018-11-29 12:34 | General Progress Note ---
Assessment/Plan Problem List: (1) Diabetes mellitus out of control ICD Codes: E11.65 - Type 2 diabetes mellitus with hyperglycemia SNOMED: 95015261, 205917578 (2) Bilateral hydronephrosis ICD Codes: N13.30 - Unspecified hydronephrosis SNOMED: 36591945 (3) myofibroblastoma Status: stable, progressing Assessment/Plan: reduce Levemir to 18 units qhs continue Novolog 6 units ac tid reduce NISS ac / hs to low dose he will benefit from Tatum 14 days as OP discussed with daughter at bedside Subjective Allergies: Coded Allergies: No Known Allergies (Unverified , 11/23/18) All Systems: reviewed and negative except above Subjective fasting glucose on lower side this morning Novolog 6 units w/ breakfast was held pre lunch glucose raised to 221 mg/dL daughter at bedside Item Value Date Time Bedside Blood Glucose 60 mg/dl L 11/29/18 0628 Bedside Blood Glucose 221 mg/dl H 11/28/18 2101 Bedside Blood Glucose 274 mg/dl H 11/28/18 1725 Bedside Blood Glucose 221 mg/dl H 11/28/18 1236 Objective Last 24 Hour Vital Signs Date Time Temp Pulse Resp B/P (MAP) Pulse Ox O2 Delivery O2 Flow Rate FiO2 11/29/18 08:00 98.9 73 18 153/83 (106) 95 11/29/18 04:17 98.2 71 18 142/86 (104) 96 11/29/18 00:00 98.2 69 18 144/85 (104) 95 11/28/18 21:00 Room Air 11/28/18 20:00 98.4 66 18 142/78 (99) 96 11/28/18 16:35 99.0 67 17 134/77 (96) 95 11/28/18 16:04 99.0 Intake and Output 11/28/18 11/29/18 19:00 07:00 Intake Total 800 ml 500 ml Output Total 1600 ml 2250 ml Balance -800 ml -1750 ml Intake Oral 800 ml 500 ml Output Urine Total 1600 ml Other 2250 ml Laboratory Tests 11/29/18 05:20: White Blood Count 6.3, Red Blood Count 3.53L, Hemoglobin 9.6L, Hematocrit 29.2L , Mean Corpuscular Volume 83, Mean Corpuscular Hemoglobin 27.3, Mean Corpuscular Hemoglobin Concent 32.9, Red Cell Distribution Width 12.3, Platelet Count 249, Mean Platelet Volume 5.9L, Neutrophils (%) (Auto) 66.3, Lymphocytes ( %) (Auto) 18.1L, Monocytes (%) (Auto) 8.8, Eosinophils (%) (Auto) 6.3H, Basophils (%) (Auto) 0.5, Sodium Level 141, Potassium Level 3.5, Chloride Level 103, Carbon Dioxide Level 30, Anion Gap 8, Blood Urea Nitrogen 28H, Creatinine 1.7H, Estimat Glomerular Filtration Rate 40.7, Glucose Level 54#L, Calcium Level 9.2 Height (Feet): 5 Height (Inches): 7.00 Weight (Pounds): 214 General Appearance: no apparent distress Neck: normal alignment Cardiovascular: normal rate Respiratory/Chest: lungs clear Abdomen: normal bowel sounds Pelvis: normal external exam Objective Current Medications Medications (Trade) Dose Ordered Sig/Sp Route PRN Reason Start Time Stop Time Status Last Admin Dose Admin Acetaminophen (Tylenol) 650 mg Q4H PRN ORAL fever (Temp>100.5F) 11/26/18 12:00 12/23/18 11:59 Dextrose (Dextrose 50%) 25 ml Q30M PRN IV Hypoglycemia 11/28/18 07:30 12/28/18 07:29 Dextrose (Dextrose 50%) 50 ml Q30M PRN IV Hypoglycemia 11/28/18 07:30 12/28/18 07:29 Docusate Sodium (Colace) 100 mg THREE TIMES A DAY ORAL 11/26/18 13:00 12/24/18 12:59 11/29/18 08:20 Ibuprofen (Motrin) 600 mg Q8H PRN ORAL For Pain 11/29/18 08:30 12/29/18 08:29 11/29/18 11:51 Insulin Aspart (NovoLOG) BEFORE MEALS AND HS SUBQ 11/26/18 16:30 12/24/18 16:29 11/28/18 21:01 Insulin Aspart (NovoLOG) 6 units NOVOTIAC SUBQ 11/28/18 11:50 12/28/18 11:49 11/28/18 17:24 Insulin Detemir (Levemir) 24 units BEDTIME SUBQ 11/28/18 21:00 12/24/18 20:59 11/28/18 21:00 Levofloxacin (Levaquin) 250 mg DAILY ORAL 11/29/18 09:00 12/06/18 08:59 11/29/18 08:20 Ondansetron HCl (Zofran) 4 mg Q6H PRN IVP Nausea & Vomiting 11/29/18 09:45 12/29/18 09:44 Pantoprazole (Protonix) 40 mg DAILY ORAL 11/27/18 09:00 12/26/18 08:59 11/29/18 08:20 Polyethylene Glycol (Miralax) 17 gm HSPRN PRN ORAL Constipation 11/26/18 21:00 12/23/18 20:59 Tamsulosin HCl (Flomax) 0.4 mg BEDTIME ORAL 11/26/18 21:00 12/24/18 20:59 11/28/18 20:55 Temazepam (Restoril) 15 mg HSPRN PRN ORAL Insomnia 11/26/18 21:00 11/30/18 20:59 Chin Mojica MD November 29, 2018 12:34
[2018-11-29] MEDS ORDERED: NovoLOG Insulin Flexpen SUBQ SCH (16:30)
--- NOTE | 2018-11-29 16:40 | Nephrology Progress Note ---
Assessment/Plan Problem List: (1) Hyperkalemia (2) ATN (acute tubular necrosis) Assessment: resolving (3) CKD (chronic kidney disease) stage 5, GFR less than 15 ml/min (4) Retroperitoneal mass (5) Bilateral hydronephrosis Assessment Renal failure, Hyperkalemia Cr lowering long h/o DM retroperitoneal mass, bilateral moderate hydro, nature of mass myofibroma Anemia Plan stop Motrin for pain in viewe of abnormal kidney function Uro eval appreciated- had Nephrostomy 11/25 now has 2 nephrostomy working well discussed with daughter in detail previously JES and CT results noted OK to DC from renal stand point Discussed with RN Subjective ROS Limited/Unobtainable: No Objective Objective Last 24 Hour Vital Signs Date Time Temp Pulse Resp B/P (MAP) Pulse Ox O2 Delivery O2 Flow Rate FiO2 11/29/18 12:21 98.9 11/29/18 12:00 98.7 75 16 142/81 (101) 96 11/29/18 09:00 Room Air 11/29/18 08:00 98.9 73 18 153/83 (106) 95 11/29/18 04:17 98.2 71 18 142/86 (104) 96 11/29/18 00:00 98.2 69 18 144/85 (104) 95 11/28/18 21:00 Room Air 11/28/18 20:00 98.4 66 18 142/78 (99) 96 Intake and Output 11/28/18 11/29/18 19:00 07:00 Intake Total 800 ml 500 ml Output Total 1600 ml 2250 ml Balance -800 ml -1750 ml Intake Oral 800 ml 500 ml Output Urine Total 1600 ml Other 2250 ml Laboratory Tests 11/29/18 05:20: White Blood Count 6.3, Red Blood Count 3.53L, Hemoglobin 9.6L, Hematocrit 29.2L , Mean Corpuscular Volume 83, Mean Corpuscular Hemoglobin 27.3, Mean Corpuscular Hemoglobin Concent 32.9, Red Cell Distribution Width 12.3, Platelet Count 249, Mean Platelet Volume 5.9L, Neutrophils (%) (Auto) 66.3, Lymphocytes ( %) (Auto) 18.1L, Monocytes (%) (Auto) 8.8, Eosinophils (%) (Auto) 6.3H, Basophils (%) (Auto) 0.5, Sodium Level 141, Potassium Level 3.5, Chloride Level 103, Carbon Dioxide Level 30, Anion Gap 8, Blood Urea Nitrogen 28H, Creatinine 1.7H, Estimat Glomerular Filtration Rate 40.7, Glucose Level 54#L, Calcium Level 9.2 Height (Feet): 5 Height (Inches): 7.00 Weight (Pounds): 214 General Appearance: no apparent distress Objective no change Gavino Garcia MD November 29, 2018 16:40
--- NOTE | 2018-11-29 17:00 | NUR ---
NURSE NOTES: Called Dr. Sinha, Dr. Medley, and Maged WILDL[employer] MANAGEMENT PROFESSOR to request clearance to d/c pt. by all of them pt was cleared to d/c and to fallow up with his regular PCP. discharge instructions and belongings list given to patient and pt's daughter. also given RX for: Levaquin 500mg PO Qday X 5days. pt's daughter stated that they will go to their regular pharmacy to fill out prescription. IV removed prior to d/c. RN also though pt and pt's daughter how to record I&O and supplies were given, nephrostomy dressing was also reinforced prior to d/c. pt left the floor ambulating since he refused w/c. pt' daughter will provide transportation. I will f/u as needed.
[2018-11-29] MEDS ORDERED: Levemir Flexpen SUBQ SCH (21:00)
--- NOTE | 2018-12-01 13:45 | Discharge Summary ---
Discharge Summary Discharge Summary _ DATE OF ADMISSION: 11/23/2018 DATE OF DISCHARGE: 11/29/2018 DISCHARGED BY: Dr. Tracy REASON FOR ADMISSION: 63 years old male with past medical history of diabetes, recently diagnosed myofibroblastoma, anemia, acute kidney injury, ureteral stent placement , presented with complaints of diffuse abdominal pain. According to family patient was not eating or drinking , and appeared to be dehydration . Family reported elevated blood glucose. Patient had recent PET scan along with the other CT imaging. Upon evaluation no leukocytosis ,hemoglobin 9.5 ,hematocrit 29.3 with MCV of 84. Sodium 129 , potassium 5.6 , chloride 99. BUN 76, creatinine 5.3 Glucose 424. Calcium 8.9. Stable LFT 9. Albumin 2.7. Lipase 164. EKG revealed sinus rhythm, no acute ischemic changes. CT of the abdomen and pelvis demonstrated mantle of retroperitoneal soft tissue in the pericaval periaortic region extending into bilateral iliac regions. Findings suspicious for retroperitoneal fibrosis. Moderate bilateral hydroureteronephrosis. Double-J ureteral stents appeared to be in good position. Moderate thickening of the urinary bladder wall may be due to cystitis. Anasarca. Basal atelectasis. Family showed a blood test 5 days ago with BUN 38 and creatinine 1.6 respectively. Patient subsequently was admitted for further management. CONSULTANTS: pulmonary Dr. Caballero ID specialist Dr. Levy GI specialist Dr. Suero software engineer web services Dr. Garcia banking officer Dr. Mojica urologist Dr. Dacosta [facility] COURSE: Patient admitted. Urology and nephrology consults were requested. Pain management was addressed. Patient started on antibiotic as per ID recommendation. Cheesemaker followed. Renal parameters and electrolytes were closely monitored, electrolytes corrected as needed, and nephrotoxins were avoided. Hyperkalemia was treated. Venous duplex bilateral lower extremity revealed no evidence of acute DVT. Abdominal ultrasound demonstrated moderate bilateral hydroureteronephrosis. Ureteral stents noted. 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 Urologist seen and evaluated patient. Per urologist, myofibroblastoma was initially diagnosed in [place] and verified on biopsy later on. Patient apparently had a ureteral compression from the mass, overlying other portion of the retroperitoneum. Double-J stents were placed 2 weeks ago for the same reason. Patient presented with renal failure and hyperkalemia despite a double-J stent. Diagnostic images revealed moderate hydroureteronephrosis with double-J stent which appeared to be in good position. According to urologist, ureters were compressed, despite the stent by the retroperitoneal mass; and stents were not enough to keep the ureters open, leading to obstructive uropathy despite the stents. Urologist recommended placement of bilateral nephrostomy tubes to relieve obstructive uropathy and follow-up with renal function tests. Patient subsequently undergone placement of bilateral nephrostomy tubes by interventional radiology. Imaging postprocedure demonstrated successful placement of bilateral 8 Swedish nephrostomy catheters. Nephrostomy tubes were working well. Nephrotoxins were avoided . Nonsteroidal anti-inflammatory medications stopped. Prior to discharge BUN from initial 76 down to 28 and creatinine from initial 5.3 down to 1.7. Hyponatremia corrected, sodium 141 prior to discharge. Potassium 3.5 prior to discharge. Etl Analyst Developer followed for hyperglycemia. Hemoglobin A1c 7.7. Blood sugar was managed with long-acting Levemir and short acting pre-meal NovoLog as well as a sliding scale of insulin as needed. Etl Analyst Developer closely followed and optimized further anti-glycemic regimen based on blood glucose levels. Patient would benefit from [place] 14 days as outpatient, which was discussed with patient and family. Pain management was addressed. Supportive care provided. Hemoglobin and hematocrit were closely monitor with goal to keep hemoglobin above 7. Stool for occult blood was negative x2. CEA was within normal limits. Hemoglobin and hematocrit remained at baseline,, prior to discharge hemoglobin 9.6 hematocrit 29.2. Anemia work-up was consistent with anemia of chronic disease. Stable folate and B12 level. TSH within normal limits. Infectious disease specialist followed. Patient had low-grade fever at night x2, no leukocytosis. No evidence of UTI, no evidence of intra-abdominal abscess. Blood cultures were negative. Urine cultures were negative. Repeated blood culture were negative as well. Fevers resolved. Per ID specialist no obvious cause of low-grade fever at night x2. Patient received Rocephin for 3 days. Patient started on oral Levaquin . ID specialist recommended to discharge on oral Levaquin to complete the course for additional 5 days. Patient clinically stabilized. Acute renal failure resolved. Electrolytes stable. Blood sugar under control. Patient was stable for discharge home. Outpatient follow-up with a primary care provider FINAL DIAGNOSES: Moderate bilateral hydroureteronephrosis with double-J stents Obstructive uropathy due to retroperitoneal mass-resolved Acute tubular necrosis /renal failure secondary to obstructive uropathy- resolved Acute hyperkalemia secondary to acute renal failure-resolved Status post placement of bilateral nephrostomy tube by interventional radiology Myofibroblastoma Chronic kidney disease stage V Dehydration Acute hyponatremia-resolved Anemia of chronic disease Diabetes out of control DISCHARGE MEDICATIONS: List of medication was sent with patient . DISCHARGE INSTRUCTIONS: Patient was discharged home. Follow up with primary care provider in one week. I have been assigned to dictate discharge summary for this account. I was not involved in the patient's management. Liliana Perez NP December 01, 2018 13:45
== END 2018-11-29 17:00 | disposition home or self-care (01) | DRG 465 ==
LOC: EMR 19:58 → 3E 21:43 → EDBEDREQ 21:50 → 2W 11-24 10:12 → 3E 11-26 10:50
PROC: 0T9430Z Drainage of Left Kidney Pelvis with Drainage Device, Percutaneous Approach (ICD-10-PCS; principal; 2018-11-25)
PROC: 0T9330Z Drainage of Right Kidney Pelvis with Drainage Device, Percutaneous Approach (ICD-10-PCS; 2018-11-25)
DX: N13.30 Unspecified hydronephrosis (principal); N17.0 Acute kidney failure with tubular necrosis; E11.65 Type 2 diabetes mellitus with hyperglycemia; E87.1 Hypo-osmolality and hyponatremia; D63.8 Anemia in other chronic diseases classified elsewhere; E86.0 Dehydration; D20.0 Benign neoplasm of soft tissue of retroperitoneum; E87.5 Hyperkalemia; N39.0 Urinary tract infection, site not specified; N18.5 Chronic kidney disease, stage 5
CPT/HCPCS: 36415; 50432; 74176; 76700; 76942; 80048; 80053; 80061; 80076; 81003; 82043; 82150; 82270; 82378; 82550; 82570; 82607; 82728; 82746; 82962; 82977; 83036; 83540; 83550; 83605; 83615; 83690; 83735; 83880; 84100; 84133; 84300; 84443; 84550; 85007; 85025; 85044; 85060; 85610; 85651; 85730; 86140; 87040; 87086; 89050; 93005; 93970; 96361; 96374; 96375; 99285; J1815; J2250; J2405; J2765; S5561

== ENCOUNTER 2018-12-03 14:35 | Emergency (ER) | payer OTHER ==
[~2018-12-03] VITALS: Ht 175.3 cm; Wt 76.7 kg
[~2018-12-03 14:35] MED LIST: ACETAMINOP160 MG/54 ORAL; COLACE100 MG ORAL; GABAPENTIN100 MG ORAL; LANTUS SOL100 UNIT/1 SUBQ; LIPITOR20 MG ORAL; LISPRO; MIRALAX17 G2 ORAL; ROXICODONE15 MG ORAL; SENNA176 MG/5 M PO
--- NOTE | 2018-12-03 14:53 | NUR ---
ED Nurse Note: PT WALKED IN TO ER TODAY FROM HOME. AOX4. PT PRESENTS WITH BILATERAL NEPHROSTOMY TUBES BUT STATES RIGHT SIDE CATHETER HAS NOT BEEN DRAINING URINE FOR THE LAST 3 HOURS. PT ALSO C/O RIGHT SIDED FLANK PAIN X 3 HOURS AGO EXACERBATED BY FORWARD BENDING. ON ASSESSMENT, PT HAS BHUMI VALVE "OFF" TO DRAINAGE BAG. VALVE CHANGED TO "OPEN" TO DRAINAGE BAG BY DR GUARDADO AND NEPHROSTOMY TUBE NOW DRAINING CLEAR YELLOW URINE. PT ALSO STATES THAT PAIN HAS BEEN RELIEVED NOW THAT URINE IS DRAINING. PT STATES SYMPTOMS HAVE BEEN RELIEVED. DR GUARDADO STATES HE WILL BE DISCHARGED SHORTLY.
[2018-12-03 14:56] VITALS: BP 126/74
[2018-12-03 14:58] VITALS: BP 128/76
--- NOTE | 2018-12-03 14:59 | NUR ---
ED Nurse Note: PT SITTING PEACEFULLY IN BED IN NAD. AOX4. DISCHARGE PAPERWORK EXPLAINED TO PT. PT VERBALIZES UNDERSTANDING AND ALL QUESTIONS ANSWERED. DISCHARGE PAPERWORK GIVEN TO PT AND ID WRISTBAND REMOVED. PT WALKED OUT OF ER WITH STEADY GAIT AND ALL BELONGINGS.
--- NOTE | 2018-12-03 17:13 | Emergency Room Report ---
History of Present Illness General Chief Complaint: Pain Source: Patient, Family Member, Medical Record Present Illness HPI Patient has a history of renal failure mild fibroblastoma anemia acute kidney injury with nephrostomy placement and ureteral stent. Patient was recently discharged with bilateral nephrostomy tube. Unfortunately patient's daughter and patient noted increasing pain in the right flank. Apparently the right nephrostomy tube stopped draining. Patient denies any nausea vomiting diarrhea chills. Denies any fever. They noted this around late this morning. No history of dysuria urinary frequency. No other complaints are noted. Symptoms noted to be moderate to severe. No other modifying factors. No other associated signs and symptoms. No other complaints were noted. Allergies: Coded Allergies: No Known Allergies (Unverified , 11/23/18) Patient History Past Medical History: DM Past Surgical History: none Pertinent Family History: none Social History: Denies: smoking, alcohol use, drug use Reviewed Nursing Documentation: PMH: Agreed; PSxH: Agreed Nursing Documentation-PMH Past Medical History: No History, Except For Hx Diabetes: Yes Hx Cancer: No Hx Neurological Problems: No Review of Systems All Other Systems: negative except mentioned in HPI Physical Exam Vital Signs Date Time Temp Pulse Resp B/P (MAP) Pulse Ox O2 Delivery O2 Flow Rate FiO2 12/03/18 14:44 97.9 81 18 96 Room Air 12/03/18 14:56 126/74 Sp02 EP Interpretation: reviewed, normal General Appearance: normal inspection, well appearing, no apparent distress, alert Head: atraumatic Eyes: bilateral eye normal inspection ENT: normal ENT inspection, hearing grossly normal, normal voice Neck: normal inspection, full range of motion, supple, no bony tend Respiratory: normal inspection, lungs clear, normal breath sounds, no respiratory distress, no retraction, no wheezing Cardiovascular #1: regular rate, rhythm, no edema Gastrointestinal: normal inspection, normal bowel sounds, non tender, soft, no guarding, no hernia Genitourinary: other - bilateral nephrostomy tube in place. Right nephrostomy tube is not draining. Musculoskeletal: normal inspection, back normal, normal range of motion Neurologic: normal inspection, alert, responsive, speech normal Psychiatric: normal inspection, judgement/insight normal, mood/affect normal Skin: normal inspection, normal color, no rash Medical Decision Making Diagnostic Impression: Primary Impression: Malfunction of nephrostomy tube ER Course Patient presents to the emergency department today complaining of malfunction of the right nephrostomy tube. Differential diagnoses include nephrostomy tube dislodgment, malfunction, infection just to name a few. Physical exam however shows the patient's nephrostomy tube is in place and the stopcock is turned to the off position. This was adjusted and then patient had good urine output in the right nephrostomy tube patient had a relief of pain. Given the patient's nephrostomy tube is now draining I felt the symptoms were likely secondary to a accidentally adjusted stopcock. Now that this is adjusted appropriately instructed the patient and the family how to use it. They are advised to follow -up with primary care physician and urologist as needed. Last Vital Signs Date Time Temp Pulse Resp B/P (MAP) Pulse Ox O2 Delivery O2 Flow Rate FiO2 12/03/18 14:58 98.3 74 17 128/76 98 Room Air Status: improved Disposition: HOME, SELF-CARE Condition: Stable Patient Instructions: Percutaneous Nephrostomy, Care After Willam Weaver MD December 03, 2018 17:13
== END 2018-12-03 15:10 | disposition home or self-care (01) ==
LOC: EMR 15:02
DX: N99.522 Malfunction of incontinent external stoma of urinary tract (principal); Y84.6 Urinary catheterization as the cause of abnormal reaction of the patient, or of later complication, without mention of misadventure at the time of the procedure; Y92.9 Unspecified place or not applicable; E11.9 Type 2 diabetes mellitus without complications; N19 Unspecified kidney failure
CPT/HCPCS: 99282